=== PATIENT | female | born 1950 | race Caucasian/White ===

== ENCOUNTER 2016-09-24 04:56 | Inpatient (IN) | payer MEDICARE ==
[2016-09-24] VITALS (26 sets, daily range): BP systolic 87–121; BP diastolic 48–83
[~2016-09-24] VITALS: Ht 157.5 cm; Wt 110.0 kg
[~2016-09-24 04:56] MED LIST: (NONE)25 ML; (NONE)25 ML IM; ACETAMIN325 MG PO; ACYCLOVIR200 MG PO; ACYCLOVIR800 MG PO; ADDERALL XR10 MG PO; ADDERALL10 MG PO; ALPRAZOLAM PO; ALPRAZOLAM0.5 M2 PO; AMBIEN CR12.5 MG PO; AMBIEN10 MG OR; AMBIEN10 MG PO; AMBIEN5 MG PO; AMOX/K CLAV500 MG PO; AMOX/K CLAV875 M1 PO; AMOXICILLIN/PO500 MG PO; ASPIRIN81 MG PO; AUGMENTIN500TAB PO; B-12100 MCG IM; BACLOFEN10 MG OR; BACTRIM DS1 TAB PO; BACTROBAN2 % EX; CARAFATE PO; CEFTIN500 MG PO; CETIRIZ/PSE1 TAB PO; CETIRIZINE10 MG PO; CIPRO500 MG PO; CIPROFLOXA250 GM/5 M PO; CIPROFLOXACN500 MG PO; CLINDAMYCIN300 M1 PO; CLONIDINE0.1 MG PO; COMBIVENT IN; COMBIVENT INH; CORDARONE/200 MG/TAB PO; CYANOCOBALAM1000 MCG IJ; CYANOCOBALAM1000 MCG IM; DEPO-MEDROL40 MG/ML IJ; DESYREL50 MG/TAB PO; DIFLUCAN100 MG PO; DILAUDID8 MG OR; DIPHENHYDRAMINE25 MG PO; DITROPAN PO; DOXYCYCL HYC100 M3 PO; DOXYCYCL HYC100 MG PO; DURAGESIC100 MCG/1 TD; DURAGESIC100 MCG/H TD; DURAGESIC75 MCG/H1 TD; DURAGESIC75 MCG/HR TD; EQL IBUPROFEN200 MG PO; ESCITALOPRAM OX10 MG PO; FENTANYL25 MCG/HR TD; FENTANYL50 MCG/HR TD; FLEXERIL OR; FLEXERIL PO; FLEXERIL5 M1 PO; FLUTICASONE50 MCG; GABAPENTIN100 MG PO; HYDROXYZ HCL25 MG OR; INDOCIN50 MG/CAP PO; IPRATROPIU0.5 MG/3 M IN; LEVAQUIN500 MG/100 IV; LEVAQUIN750 MG PO; LEVOTHROID100 MCG PO; LEVOTHROID125 MCG PO; LEVOTHYROXIN100 MC1 PO; LEVOTHYROXIN100 MCG PO; LEVOTHYROXIN112 MC1 PO; LEVOTHYROXIN125 MC1 PO; LEVOTHYROXIN125 MCG PO; LEVOTHYROXIN75 MC1 PO; LEXAPRO10 MG PO; LEXAPRO20 MG OR; LEXAPRO20 MG PO; LIDODERM5 % EX; LORTAB 5/3255 MG PO; LOTRISONE EX; LUNESTA3 MG PO; LYRICA100 MG PO; LYRICA150 MG OR; LYRICA200 MG PO; LYRICA300 MG PO; Levaquin PO; MEDDOSEPAK OR; MEDDOSEPAK PO; MEROPENEM1 GM IV; METOCLOPRAM5 MG PO; MILK OF MAG30 ML/UDC PO; MORPHINE SUL30 MG OR; NEURONTIN300 MG OR; NEURONTIN400 MG PO; NEXIUM 24HR20 MG PO; OXYCODONE HCL15 MG PO; OXYCODONE15 MG PO; OXYCODONE30 MG OR; PREDNISONE20 MG PO; PREMARIN0.3 MG PO; PRILOSEC40 MG PO; PROAIR HFA IN; PROTONIX40 M2 PO; RANITIDINE150 M1 PO; ROBAXIN-750750 MG PO; ROBAXIN250 MG PO; ROBITUSSIN AC10 ML PO; ROXICODONE30 MG OR; SILVER SULFADIAZI1 % EX; STERAPRED PO; SYNTHROID100 MCG PO; SYNTHROID125 MCG OR; TIZANIDINE HCL4 M1 PO; TOPAMAX50 M1 PO; TRAMADOL HCL50 MG PO; TRAZODONE100 MG PO; TRAZODONE50 MG PO; ULTRAM50 MG OR; UNASYN 1.5 GM1.5 GM IV; VALTREX1 GM PO; VENTOLIN HFA IN; VITAMIN B-12500 MC2 IM; XANAX XR0.5 MG OR; XANAX0.5 MG PO; XANAX1 MG OR; ZITHROMAX1 GM PO; ZOLPIDEM10 MG PO; ZOLPIDEM5 M1 PO; ZPAK PO; ZYRTEC10 M3 PO
[2016-09-24 06:05] LABS: HEMATOCRIT 37.2 % (37.0-47.0); HEMOGLOBIN 11.5 g/dl (12.0-16.0); IMMATURE GRANULOCYTES 0.8 % (0.0-1.0); MEAN CELL VOLUME 81.6 fL CALC (80.0-100.0); MEAN CORPUSCULAR HGB 25.2 pG CALC (26.0-32.0); MEAN CORPUSCULAR HGB CONC 30.9 g/L CALC (32.0-36.0); NEUT# 2.49 thou/uL (2.00-7.15); RED BLOOD COUNT 4.56 mill/uL (4.20-5.60); RED CELL DISTRI WIDTH 19.2 % (11.5-15.5)
[2016-09-24 06:18] LABS: ALBUMIN 3.1 g/dL (3.2-5.0); ALKALINE PHOSPHATASE 94 u/l (38-126); ANION GAP 11 (6-22 (CALC)); BILIRUBIN, TOTAL 0.4 mg/dL (0.0-1.4); BUN 15 mg/dL (8-23); BUN/CREATININE RATIO 21 (12-20 (CALC)); CARBON DIOXIDE 31 mmol/l (22-30); CHLORIDE 101 mmol/l (95-108); CREATININE 0.7 mg/dL (0.5-1.0); GFR > 60 ML/MIN (>=60 (CALC)); GFR FOR AFR.AMER. > 60 ML/MIN (>=60 (CALC)); GLUCOSE 120 mg/dL (82-115); POTASSIUM 3.4 mmol/l (3.5-5.1); SGOT/AST 20 u/l (9-36); SGPT/ALT 31 u/l (11-66); SODIUM 139 mmol/l (137-146)
[2016-09-24 06:32] LABS: MYOGLOBIN 55 ng/mL (0 - 62)
[2016-09-24 06:49] LABS: TSH, 3RD GENERATION 0.25 uIU/mL (0.47 - 4.68)
[2016-09-24 12:05] LABS: URINE BILIRUBIN - DIPSTICK NEGATIVE (NEGATIVE); URINE BLOOD DIPSTICK NEGATIVE (NEGATIVE); URINE CLARITY CLEAR; URINE COLOR YELLOW; URINE GLUCOSE - DIPSTICK NEGATIVE (NEGATIVE); URINE KETONE NEGATIVE (NEGATIVE); URINE LEUK ESTERASE NEGATIVE (Negative); URINE NITRITE - DIPSTICK NEGATIVE (Negative); URINE PROTEIN - DIPSTICK NEGATIVE (NEG-TRACE)
[2016-09-24 17:12] LABS: HEMATOCRIT 35.1 % (37.0-47.0); HEMOGLOBIN 10.9 g/dl (12.0-16.0); IMMATURE GRANULOCYTES 1.2 % (0.0-1.0); MEAN CELL VOLUME 80.9 fL CALC (80.0-100.0); MEAN CORPUSCULAR HGB 25.1 pG CALC (26.0-32.0); MEAN CORPUSCULAR HGB CONC 31.1 g/L CALC (32.0-36.0); NEUT# 2.12 thou/uL (2.00-7.15); RED BLOOD COUNT 4.34 mill/uL (4.20-5.60); RED CELL DISTRI WIDTH 19.3 % (11.5-15.5)
[2016-09-24 17:20] LABS: ALBUMIN 2.9 g/dL (3.2-5.0); ALKALINE PHOSPHATASE 79 u/l (38-126); ANION GAP 9 (6-22 (CALC)); BILIRUBIN, TOTAL 0.4 mg/dL (0.0-1.4); BUN 12 mg/dL (8-23); BUN/CREATININE RATIO 20 (12-20 (CALC)); CALCIUM 7.9 mg/dL (8.4-10.2); CARBON DIOXIDE 31 mmol/l (22-30); CHLORIDE 107 mmol/l (95-108); CREATININE 0.6 mg/dL (0.5-1.0); GFR > 60 ML/MIN (>=60 (CALC)); GFR FOR AFR.AMER. > 60 ML/MIN (>=60 (CALC)); GLUCOSE 138 mg/dL (82-115); POTASSIUM 3.7 mmol/l (3.5-5.1); SGOT/AST 23 u/l (9-36); SGPT/ALT 27 u/l (11-66); SODIUM 143 mmol/l (137-146); TOTAL PROTEIN 5.8 g/dL (6.3-8.2)
[2016-09-25] VITALS (9 sets, daily range): BP systolic 106–125; BP diastolic 53–62
[2016-09-25 06:20] LABS: HEMATOCRIT 35.9 % (37.0-47.0); HEMOGLOBIN 10.8 g/dl (12.0-16.0); IMMATURE GRANULOCYTES 0.3 % (0.0-1.0); MEAN CELL VOLUME 83.9 fL CALC (80.0-100.0); MEAN CORPUSCULAR HGB 25.2 pG CALC (26.0-32.0); MEAN CORPUSCULAR HGB CONC 30.1 g/L CALC (32.0-36.0); NEUT# 1.58 thou/uL (2.00-7.15); RED BLOOD COUNT 4.28 mill/uL (4.20-5.60); RED CELL DISTRI WIDTH 19.4 % (11.5-15.5)
[2016-09-25 06:34] LABS: ALBUMIN 2.6 g/dL (3.2-5.0); ALKALINE PHOSPHATASE 79 u/l (38-126); ANION GAP 11 (6-22 (CALC)); BILIRUBIN, TOTAL 0.3 mg/dL (0.0-1.4); BUN 10 mg/dL (8-23); BUN/CREATININE RATIO 17 (12-20 (CALC)); CALCIUM 8.1 mg/dL (8.4-10.2); CARBON DIOXIDE 29 mmol/l (22-30); CHLORIDE 108 mmol/l (95-108); CREATININE 0.6 mg/dL (0.5-1.0); GFR > 60 ML/MIN (>=60 (CALC)); GFR FOR AFR.AMER. > 60 ML/MIN (>=60 (CALC)); GLUCOSE 89 mg/dL (82-115); POTASSIUM 4.1 mmol/l (3.5-5.1); SGOT/AST 17 u/l (9-36); SGPT/ALT 26 u/l (11-66); SODIUM 145 mmol/l (137-146); TOTAL PROTEIN 5.3 g/dL (6.3-8.2)
[2016-09-26 00:01] VITALS: BP 133/69
[2016-09-26 02:00] VITALS: BP 114/53
[2016-09-26 05:27] LABS: HEMATOCRIT 35.7 % (37.0-47.0); HEMOGLOBIN 11.1 g/dl (12.0-16.0); IMMATURE GRANULOCYTES 0.6 % (0.0-1.0); MEAN CELL VOLUME 80.4 fL CALC (80.0-100.0); MEAN CORPUSCULAR HGB CONC 31.1 g/L CALC (32.0-36.0); NEUT# 3.7 thou/uL (2.00-7.15); RED BLOOD COUNT 4.44 mill/uL (4.20-5.60); RED CELL DISTRI WIDTH 19.1 % (11.5-15.5)
[2016-09-26 05:57] LABS: ALBUMIN 3.1 g/dL (3.2-5.0); ALKALINE PHOSPHATASE 92 u/l (38-126); ANION GAP 12 (6-22 (CALC)); BILIRUBIN, TOTAL 0.3 mg/dL (0.0-1.4); BUN 9 mg/dL (8-23); BUN/CREATININE RATIO 17 (12-20 (CALC)); CALCIUM 8.5 mg/dL (8.4-10.2); CARBON DIOXIDE 26 mmol/l (22-30); CHLORIDE 110 mmol/l (95-108); CREATININE 0.6 mg/dL (0.5-1.0); GFR > 60 ML/MIN (>=60 (CALC)); GFR FOR AFR.AMER. > 60 ML/MIN (>=60 (CALC)); GLUCOSE 92 mg/dL (82-115); POTASSIUM 3.5 mmol/l (3.5-5.1); SGOT/AST 20 u/l (9-36); SGPT/ALT 30 u/l (11-66); SODIUM 145 mmol/l (137-146); TOTAL PROTEIN 5.9 g/dL (6.3-8.2)
[2016-09-26 09:29] VITALS: BP 108/68
[2016-09-26 15:25] VITALS: BP 120/57
[2016-09-26 19:00] VITALS: BP 96/62
[2016-09-26 23:26] VITALS: BP 125/72
[2016-09-27 04:45] VITALS: BP 110/68
[2016-09-27 05:12] LABS: HEMATOCRIT 32.9 % (37.0-47.0); HEMOGLOBIN 10.3 g/dl (12.0-16.0); MEAN CORPUSCULAR HGB 25.4 pG CALC (26.0-32.0); MEAN CORPUSCULAR HGB CONC 31.3 g/L CALC (32.0-36.0); NEUT# 3.62 thou/uL (2.00-7.15); RED BLOOD COUNT 4.06 mill/uL (4.20-5.60); RED CELL DISTRI WIDTH 19.2 % (11.5-15.5)
[2016-09-27 05:38] LABS: ALBUMIN 2.8 g/dL (3.2-5.0); ALKALINE PHOSPHATASE 79 u/l (38-126); ANION GAP 11 (6-22 (CALC)); BILIRUBIN, TOTAL 0.2 mg/dL (0.0-1.4); BUN 16 mg/dL (8-23); BUN/CREATININE RATIO 23 (12-20 (CALC)); CALCIUM 8.5 mg/dL (8.4-10.2); CARBON DIOXIDE 29 mmol/l (22-30); CHLORIDE 109 mmol/l (95-108); CREATININE 0.7 mg/dL (0.5-1.0); GFR > 60 ML/MIN (>=60 (CALC)); GFR FOR AFR.AMER. > 60 ML/MIN (>=60 (CALC)); GLUCOSE 77 mg/dL (82-115); SGOT/AST 27 u/l (9-36); SGPT/ALT 30 u/l (11-66); SODIUM 145 mmol/l (137-146); TOTAL PROTEIN 5.4 g/dL (6.3-8.2)
[2016-09-27 08:10] VITALS: BP 117/51
[2016-09-27 15:27] VITALS: BP 123/72
[2016-09-27 18:40] VITALS: BP 131/56
[2016-09-28 03:45] VITALS: BP 136/79
[2016-09-28 06:09] LABS: HEMATOCRIT 30.8 % (37.0-47.0); HEMOGLOBIN 9.5 g/dl (12.0-16.0); IMMATURE GRANULOCYTES 1.9 % (0.0-1.0); MEAN CELL VOLUME 81.1 fL CALC (80.0-100.0); MEAN CORPUSCULAR HGB CONC 30.8 g/L CALC (32.0-36.0); NEUT# 4.02 thou/uL (2.00-7.15); RED BLOOD COUNT 3.8 mill/uL (4.20-5.60); RED CELL DISTRI WIDTH 19.2 % (11.5-15.5)
[2016-09-28 06:21] LABS: ANION GAP 11 (6-22 (CALC)); BUN 15 mg/dL (8-23); BUN/CREATININE RATIO 23 (12-20 (CALC)); CARBON DIOXIDE 27 mmol/l (22-30); CHLORIDE 107 mmol/l (95-108); CREATININE 0.7 mg/dL (0.5-1.0); GFR > 60 ML/MIN (>=60 (CALC)); GFR FOR AFR.AMER. > 60 ML/MIN (>=60 (CALC)); GLUCOSE 119 mg/dL (82-115); POTASSIUM 3.3 mmol/l (3.5-5.1); SODIUM 142 mmol/l (137-146)
[2016-09-28 08:13] VITALS: BP 109/60
[2016-09-28 15:47] VITALS: BP 110/51
[2016-09-28 19:25] VITALS: BP 113/64
[2016-09-29 03:30] VITALS: BP 122/70
[2016-09-29 05:33] LABS: ALBUMIN 2.7 g/dL (3.2-5.0); ALKALINE PHOSPHATASE 73 u/l (38-126); ANION GAP 11 (6-22 (CALC)); BILIRUBIN, TOTAL 0.2 mg/dL (0.0-1.4); BUN 10 mg/dL (8-23); BUN/CREATININE RATIO 15 (12-20 (CALC)); CALCIUM 8.1 mg/dL (8.4-10.2); CARBON DIOXIDE 29 mmol/l (22-30); CHLORIDE 107 mmol/l (95-108); CREATININE 0.7 mg/dL (0.5-1.0); GFR > 60 ML/MIN (>=60 (CALC)); GFR FOR AFR.AMER. > 60 ML/MIN (>=60 (CALC)); GLUCOSE 83 mg/dL (82-115); POTASSIUM 4.1 mmol/l (3.5-5.1); SGOT/AST 20 u/l (9-36); SGPT/ALT 29 u/l (11-66); SODIUM 142 mmol/l (137-146); TOTAL PROTEIN 5.2 g/dL (6.3-8.2)
[2016-09-29 05:51] LABS: HEMATOCRIT 31.5 % (37.0-47.0); HEMOGLOBIN 9.7 g/dl (12.0-16.0); IMMATURE GRANULOCYTES 2.9 % (0.0-1.0); MEAN CELL VOLUME 81.6 fL CALC (80.0-100.0); MEAN CORPUSCULAR HGB 25.1 pG CALC (26.0-32.0); MEAN CORPUSCULAR HGB CONC 30.8 g/L CALC (32.0-36.0); NEUT# 4.74 thou/uL (2.00-7.15); RED BLOOD COUNT 3.86 mill/uL (4.20-5.60); RED CELL DISTRI WIDTH 19.6 % (11.5-15.5)
[2016-09-29] MEDS ORDERED: ROCEPHIN 1 GM1 GM IM (07:25)
[2016-09-29] MEDS ORDERED: ZITHROMAX1 GM IV (07:26)
[2016-09-29 07:43] VITALS: BP 121/75
[2016-09-29] MEDS ORDERED: ROCEPHIN 1 GM1 GM IV (08:25)
== END 2016-09-29 10:55 | disposition home or self-care (01) | DRG 190 ==
LOC: ENPENDDIS → ED 04:56 → ED-I 06:41 → ED 06:53 → MS2 06:54 → ICU 06:54 → MS2 09-26 09:22
PROVIDERS: Emergency Medicine; ADMIT Internal Medicine Geriatric Medicine; ATTEND Internal Medicine Geriatric Medicine
PROC: 02HV33Z Insertion of Infusion Device into Superior Vena Cava, Percutaneous Approach (ICD-10-PCS; principal; 2016-09-26)
PROC: B518ZZA Fluoroscopy of Superior Vena Cava, Guidance (ICD-10-PCS; 2016-09-26)
DX: J44.0 Chronic obstructive pulmonary disease with (acute) lower respiratory infection (principal); J18.9 Pneumonia, unspecified organism; I95.9 Hypotension, unspecified; R56.9 Unspecified convulsions; Z68.41 Body mass index [BMI] 40.0-44.9, adult; E66.01 Morbid (severe) obesity due to excess calories; K21.9 Gastro-esophageal reflux disease without esophagitis; F19.20 Other psychoactive substance dependence, uncomplicated; I10 Essential (primary) hypertension; E78.5 Hyperlipidemia, unspecified; J44.1 Chronic obstructive pulmonary disease with (acute) exacerbation; E03.9 Hypothyroidism, unspecified; M81.0 Age-related osteoporosis without current pathological fracture; G47.30 Sleep apnea, unspecified; G89.29 Other chronic pain; M54.9 Dorsalgia, unspecified; M19.90 Unspecified osteoarthritis, unspecified site; T50.7X5A Adverse effect of analeptics and opioid receptor antagonists, initial encounter; Y92.239 Unspecified place in hospital as the place of occurrence of the external cause; Z98.84 Bariatric surgery status; Z87.11 Personal history of peptic ulcer disease
CPT/HCPCS: J2060; S0164

== ENCOUNTER 2016-10-10 14:53 | Inpatient (IN) | payer MEDICARE ==
[~2016-10-10] VITALS: Ht 157.5 cm; Wt 108.0 kg
[~2016-10-10 14:53] MED LIST changes: +ROCEPHIN 1 GM1 GM IM; +ROCEPHIN 1 GM1 GM IV; +ZITHROMAX1 GM IV
--- NOTE | 2016-10-10 15:30 | NUR ---
PT.ARRIVED TO FLOOR. APPEARS STABLE AT THIS TIME
[2016-10-10 16:00] VITALS: BP 88/46
--- NOTE | 2016-10-10 16:48 | NUR ---
PT.ASSESSED. PT.AWAKES TO ANSWER QUESTIONS AND IS LOCX3 TO ANSWERS, BUT EYES IMMEDIATELY CLOSE AND SHE IS ASLEEP. I FLUSHED,WASTED 10CC AND DAMIAN BLOOD FOR LAB FROM PICC LINE AND FLUSHED AGAIN BOTH LUMEN'S AND PT.WAS AWAKE AND TALKING TO ME AND FELL ASLEEP DURING AND DIDN'T KNOW I DID IT. B/P IS 88/46, HR108, 90%02 ON 2L, 98.6T.,R22, CO2 57.8/GENIE OF RESPIRATORY NOTIFIED IS HERE AND AWARE OF V/S. IS ORDERING O2@3L HUMIDIFIED.
[2016-10-10 17:14] LABS: HEMATOCRIT 33.5 % (37.0-47.0); HEMOGLOBIN 10.3 g/dl (12.0-16.0); MEAN CELL VOLUME 82.9 fL CALC (80.0-100.0); MEAN CORPUSCULAR HGB 25.5 pG CALC (26.0-32.0); MEAN CORPUSCULAR HGB CONC 30.7 g/L CALC (32.0-36.0); RED BLOOD COUNT 4.04 mill/uL (4.20-5.60); RED CELL DISTRI WIDTH 19.5 % (11.5-15.5)
[2016-10-10 17:26] LABS: ANION GAP 10 (6-22 (CALC)); BUN 14 mg/dL (8-23); BUN/CREATININE RATIO 15 (12-20 (CALC)); CALCIUM 8.4 mg/dL (8.4-10.2); CARBON DIOXIDE 33 mmol/l (22-30); CHLORIDE 100 mmol/l (95-108); GFR 55 ML/MIN (>=60 (CALC)); GFR FOR AFR.AMER. > 60 ML/MIN (>=60 (CALC)); GLUCOSE 91 mg/dL (82-115); POTASSIUM 4.5 mmol/l (3.5-5.1); SODIUM 139 mmol/l (137-146)
[2016-10-10 19:20] VITALS: BP 107/67
--- NOTE | 2016-10-10 21:15 | NUR ---
PT. SITTING UP IN BED WITH NO DISTRESS NOTED. ASSESSMENT COMPLETED. PICC LINE TO ALFREDITO INTACT AND INFUSING ORDERED IVF WELL. SCHED MEDS GIVEN AT THIS TIME. PT'S OWN FENTANYL PATCH WAS FOUND ON LEFT BREAST AND DATED FOR 10/07/16, WILL CALL MD TO ADDRESS PATCH. UPDATED WITH POC, VERBALIZES UNDERSTANDING. PT. REFUSES SAM HOSE TO BE PLACED. INSTRUCTED PT. TO CALL FOR ANY NEEDS AND NOT TO GET OOB ALONE. BED ALARM PLACED FOR SAFETY PREC. WILL CONTINUE TO MONITOR.
--- NOTE | 2016-10-10 22:10 | NUR ---
CALLED DR. HEATON AND NOTIFIED HIM OF FENTANYL PATCH ON PT, ALSO CALLED FOR CLARIFICATION OF 2 MEDS, NEW ORDERS RECEIVED AND TO BE CARRIED OUT.
--- NOTE | 2016-10-11 | NUR ---
PT. RESTING IN BED WITH EYES CLOSED, NO DISTRESS NOTED. RESP EVEN AND UNLABORED. CALL LIGHT IS IN REACH.
--- NOTE | 2016-10-11 03:42 | NUR ---
PT. RESTING IN BED WITH EYES CLOSED, NO DISTRESS NOTED. RESP EVEN AND UNLABORED. CALL LIGHT IS IN REACH.
[2016-10-11 04:40] VITALS: BP 117/69
--- NOTE | 2016-10-11 04:54 | NUR ---
PT. C/O MICHELLE 08/07, MEDICATED WITH ORDERED PRN MOTRIN, WILL REASSESS. DENIES FURTHER NEED. CALL LIGHT IS IN REACH.
[2016-10-11 06:22] LABS: HEMATOCRIT 30.9 % (37.0-47.0); HEMOGLOBIN 9.5 g/dl (12.0-16.0); IMMATURE GRANULOCYTES 0.2 % (0.0-1.0); MEAN CELL VOLUME 83.1 fL CALC (80.0-100.0); MEAN CORPUSCULAR HGB 25.5 pG CALC (26.0-32.0); MEAN CORPUSCULAR HGB CONC 30.7 g/L CALC (32.0-36.0); NEUT# 7.12 thou/uL (2.00-7.15); RED BLOOD COUNT 3.72 mill/uL (4.20-5.60); RED CELL DISTRI WIDTH 19.3 % (11.5-15.5)
[2016-10-11 06:23] LABS: URINE BILIRUBIN - DIPSTICK NEGATIVE (NEGATIVE); URINE BLOOD DIPSTICK NEGATIVE (NEGATIVE); URINE CLARITY CLEAR; URINE COLOR YELLOW; URINE GLUCOSE - DIPSTICK NEGATIVE (NEGATIVE); URINE KETONE NEGATIVE (NEGATIVE); URINE LEUK ESTERASE NEGATIVE (Negative); URINE NITRITE - DIPSTICK NEGATIVE (Negative); URINE PH 6.5 (4.5-8.0); URINE PROTEIN - DIPSTICK NEGATIVE (NEG-TRACE); URINE SPECIFIC GRAVITY <=1.005; URINE UROBILINOGEN - DIPSTICK 0.2 E.U./dL (0.2)
[2016-10-11 06:36] LABS: ALBUMIN 2.7 g/dL (3.2-5.0); ALKALINE PHOSPHATASE 77 u/l (38-126); ANION GAP 10 (6-22 (CALC)); BILIRUBIN, TOTAL 0.5 mg/dL (0.0-1.4); BUN 16 mg/dL (8-23); BUN/CREATININE RATIO 23 (12-20 (CALC)); CALCIUM 8.3 mg/dL (8.4-10.2); CARBON DIOXIDE 30 mmol/l (22-30); CHLORIDE 102 mmol/l (95-108); CREATININE 0.7 mg/dL (0.5-1.0); GFR > 60 ML/MIN (>=60 (CALC)); GFR FOR AFR.AMER. > 60 ML/MIN (>=60 (CALC)); GLUCOSE 109 mg/dL (82-115); POTASSIUM 3.9 mmol/l (3.5-5.1); SGOT/AST 25 u/l (9-36); SGPT/ALT 26 u/l (11-66); SODIUM 138 mmol/l (137-146); TOTAL PROTEIN 5.5 g/dL (6.3-8.2)
[2016-10-11 08:50] VITALS: BP 151/83
--- NOTE | 2016-10-11 08:50 | NUR ---
PT JUST COMPLETED A SHOWER. IV SITE FLUSHABLE., NO DISTRESS NOTED. C/O LOOSE STOOLS. ASSESSMENT IS COMPLETE.
[2016-10-11 11:19] LABS: C. DIFFICILE TOXIN A&B NEGATIVE (NEGATIVE)
--- NOTE | 2016-10-11 12:05 | NUR ---
PT HAS BEEN RELAXING IN THE BED THEN WANTED IN THE CHAIR
[2016-10-11 15:33] VITALS: BP 103/71
--- NOTE | 2016-10-11 16:42 | NUR ---
PT IS SITTING UP IN T HE CHAIR. NO DISTRESS NOTED. IV SITE IS FREE FROM REDNESS OR EDEMA.
--- NOTE | 2016-10-11 18:51 | NUR ---
LEFT A MESSAGE RE: DIET ORDER WANTING REG DIET NOT SOFT.
--- NOTE | 2016-10-11 18:58 | NUR ---
RETURNED CALL AND NEW ORDERS RECIEVED
[2016-10-11 20:40] VITALS: BP 120/70
--- NOTE | 2016-10-11 20:45 | NUR ---
PT ALERT AND ORIENTED X3; SITTING ON SIDE OF BED; DRINKING COFFEE, WATCHING TV, TALKACTIVE, DENIES PAIN AT THIS TIME; NS INFUSING AT 80 ML/HR WITHOUT DIFFICULTY, NO SIGNS OF DISTRESS NOTED, SAFETY MEASURES, EXPLAINED PLAN OF CARE AND MED SCHEDULE, VOICES UNDERSTANDING ENCOURAGED TO CALL IF NEEDED. WILL CONTINUE TO MONITOR. PM ASSESSMENT COMPLETED AT THIS TIME SEE INTERVENTIONS FOR DETAILS. CALL ANDINO IS AT REACH.
--- NOTE | 2016-10-12 00:22 | NUR ---
PT C/O HEADACHE, MEDICATED WITH MOTRIN PER EMAR, WILL CONTINUE TO REASSESS, CALL ANDINO IS AT REACH, NO DISTRESS NOTED.
--- NOTE | 2016-10-12 01:57 | NUR ---
PT AWAKE STATES "I WANT SOME [place] FOR BREAKFAST."
--- NOTE | 2016-10-12 03:52 | NUR ---
PT APPEARS TO BE SLEEPING WITH EYES CLOSED; AROUSES TO MINIMUM STIMULI; RESP ARE EVEN AND UNLABORED; VOICES NO COMPLAINTS AT THIS TIME; NS INFUSING AT 80 ML/HR; DOUBLE LUMEN PICC LINE ON LUE IS FREE OF REDNESS OR EDEMA; NO DISTRESS NOTED; WILL CONTINUE TO MONITOR.
--- NOTE | 2016-10-12 05:01 | NUR ---
PROVIDED A PT WITH SOME CRACKERS AND APPLE JUICE PER REQUEST, DENIES PAIN OR DISCOMFORT AT THIS TIME; WATCHING TV, EATING AT THIS TIME, WILL CONTINUE TO MONITOR.
[2016-10-12 05:31] VITALS: BP 111/73
--- NOTE | 2016-10-12 05:55 | NUR ---
PT AWAKE, RT IN PT ROOM ADMNISTERING A BREATHING TX.
[2016-10-12 07:25] VITALS: BP 96/62
--- NOTE | 2016-10-12 07:29 | NUR ---
REPORT RECIEVED FROM GUERAD RUTLEDGE. PT SITTING UP IN BED. ASSESSMENT COMPLETED. VSS. POC DISCUSSED WITH PT. IVF INFUSING AT PRESCRIBED RATE. WILL CONTINUE TO MONITOR. CALL LIGHT IN REACH.
[2016-10-12 07:46] LABS: HEMATOCRIT 27.7 % (37.0-47.0); HEMOGLOBIN 8.3 g/dl (12.0-16.0); IMMATURE GRANULOCYTES 0.3 % (0.0-1.0); MEAN CELL VOLUME 84.2 fL CALC (80.0-100.0); MEAN CORPUSCULAR HGB 25.2 pG CALC (26.0-32.0); NEUT# 4.58 thou/uL (2.00-7.15); RED BLOOD COUNT 3.29 mill/uL (4.20-5.60); RED CELL DISTRI WIDTH 19.4 % (11.5-15.5)
[2016-10-12 07:51] LABS: ALBUMIN 2.4 g/dL (3.2-5.0); ALKALINE PHOSPHATASE 64 u/l (38-126); ANION GAP 9 (6-22 (CALC)); BILIRUBIN, TOTAL 0.2 mg/dL (0.0-1.4); BUN 13 mg/dL (8-23); BUN/CREATININE RATIO 22 (12-20 (CALC)); CALCIUM 7.9 mg/dL (8.4-10.2); CARBON DIOXIDE 26 mmol/l (22-30); CHLORIDE 109 mmol/l (95-108); CREATININE 0.6 mg/dL (0.5-1.0); GFR > 60 ML/MIN (>=60 (CALC)); GFR FOR AFR.AMER. > 60 ML/MIN (>=60 (CALC)); GLUCOSE 90 mg/dL (82-115); POTASSIUM 3.7 mmol/l (3.5-5.1); SGOT/AST 17 u/l (9-36); SGPT/ALT 26 u/l (11-66); SODIUM 141 mmol/l (137-146); TOTAL PROTEIN 4.8 g/dL (6.3-8.2)
--- NOTE | 2016-10-12 08:15 | NUR ---
PT TO RADIOLOGY VIA WC ACCOMAPNIED BY STAFF.
--- NOTE | 2016-10-12 08:30 | NUR ---
PT RETURNED FROM RADIOLOGY VIA WC. PT UP TO RECLINER CHAIR WITH MINIMAL ASSISTANCE. WILL CONTINUE TO MONITOR. CALL LIGHT IN REACH.
--- NOTE | 2016-10-12 08:45 | NUR ---
DR HEATON AT BEDSIDE. POC DISCUSSED. PT VERBALIZES UNDERSTANDING. CALL LIGHT IN REACCH.
--- NOTE | 2016-10-12 12:00 | NUR ---
PT RESTING IN BED. FAMILY AT BEDSIDE. NO C/O AT THIS TIME. CALL LIGHT IN REACH.
--- NOTE | 2016-10-12 14:15 | NUR ---
REPORT RECEIVED FROM GLORIA TAY. PT SLEEPING AT THIS TIME. CALL LIGHT WITHIN REACH.
[2016-10-12 15:52] VITALS: BP 127/81
--- NOTE | 2016-10-12 19:00 | NUR ---
RECEIVED SHIFT REPORT FROM GUERDA ZALDIVAR. PATIENT LAYING IN BED QUIETLY AND APPEARS NOT TO BE IN ANY APPARENT ACUTE DISTRESS. NO VOICED COMPLAINTS AT THIS TIME.
[2016-10-12 19:30] VITALS: BP 149/70
--- NOTE | 2016-10-13 | NUR ---
NO APPARENT ACUTE CHANGES NOTED IN PATIENT'S CONDITION.
--- NOTE | 2016-10-13 04:00 | NUR ---
PATIENT LAYING IN BED WITH EYES CLOSED AND APPEARS TO BE ASLEEP. RESPIRATION EVEN AND UNLABORED. NO APPARENT ACUTE DISTRESS NOTED.
[2016-10-13 04:14] VITALS: BP 107/71
--- NOTE | 2016-10-13 07:00 | NUR ---
REPORT RECEIVED FROM GUERDA CORDERO. PT SLEEPING AT THIS TIME. CALL LIGHT WITHIN REACH.
[2016-10-13 07:45] VITALS: BP 120/76
[2016-10-13 09:28] LABS: HEMATOCRIT 31.1 % (37.0-47.0); HEMOGLOBIN 9.4 g/dl (12.0-16.0); IMMATURE GRANULOCYTES 0.9 % (0.0-1.0); MEAN CELL VOLUME 83.4 fL CALC (80.0-100.0); MEAN CORPUSCULAR HGB 25.2 pG CALC (26.0-32.0); MEAN CORPUSCULAR HGB CONC 30.2 g/L CALC (32.0-36.0); NEUT# 3.82 thou/uL (2.00-7.15); RED BLOOD COUNT 3.73 mill/uL (4.20-5.60)
[2016-10-13 09:44] LABS: ANION GAP 9 (6-22 (CALC)); BUN 13 mg/dL (8-23); BUN/CREATININE RATIO 18 (12-20 (CALC)); CALCIUM 8.8 mg/dL (8.4-10.2); CARBON DIOXIDE 29 mmol/l (22-30); CHLORIDE 107 mmol/l (95-108); CREATININE 0.7 mg/dL (0.5-1.0); GFR > 60 ML/MIN (>=60 (CALC)); GFR FOR AFR.AMER. > 60 ML/MIN (>=60 (CALC)); GLUCOSE 83 mg/dL (82-115); POTASSIUM 4.1 mmol/l (3.5-5.1); SODIUM 141 mmol/l (137-146)
--- NOTE | 2016-10-13 10:02 | NUR ---
DR. HEATON IN TO SEE PT AT THIS TIME. PLAN OF CARE UPDATED. PT INSTRUCTED ON CPT, AMBULATING IN HALLWAYS AND REPEAT LABS. PT STATES UNDERSTANDING.
--- NOTE | 2016-10-13 10:21 | NUR ---
PT DECLINED CPT WELL NEB TX.
--- NOTE | 2016-10-13 12:17 | NUR ---
PT SITTING IN CHAIR AT BEDSIDE. PT STATES SHE WILL AMBULATE IN HALLS WHEN ARRIVES.
[2016-10-13 15:41] VITALS: BP 107/63
--- NOTE | 2016-10-13 16:08 | NUR ---
PT AMBULATED IN HALLWAYS WITH WALKER AND SQUAD BOSS PRESENT. PT TOLERATED ACTIVITY WELL.
--- NOTE | 2016-10-13 19:00 | NUR ---
RECEIVED SHIFT REPORT FROM GUERDA ZALDIVAR. PATIENT LAYING IN BED AND APPEARS NOT TO BE IN ANY APPARENT ACUTE DISTRESS OR DISCOMFORT. NO VOICED COMPLAINTS.
[2016-10-13 20:00] VITALS: BP 125/79
[2016-10-14] VITALS (12 sets, daily range): BP systolic 101–141; BP diastolic 58–75
--- NOTE | 2016-10-14 | NUR ---
NO APPARENT ACUTE CHANGES NOT IN PATIENT'S CONDITION.
--- NOTE | 2016-10-14 04:00 | NUR ---
PATIENT RESTING QUIETLY WITH EYES CLOSED. RESPIRATION EVEN AND UNLABORED. NO ACUTE DISTRESS NOTED.
[2016-10-14 05:31] LABS: HEMATOCRIT 28.8 % (37.0-47.0); HEMOGLOBIN 8.8 g/dl (12.0-16.0); IMMATURE GRANULOCYTES 0.9 % (0.0-1.0); MEAN CELL VOLUME 83.7 fL CALC (80.0-100.0); MEAN CORPUSCULAR HGB 25.6 pG CALC (26.0-32.0); MEAN CORPUSCULAR HGB CONC 30.6 g/L CALC (32.0-36.0); NEUT# 3.21 thou/uL (2.00-7.15); RED BLOOD COUNT 3.44 mill/uL (4.20-5.60); RED CELL DISTRI WIDTH 18.7 % (11.5-15.5)
[2016-10-14 05:42] LABS: ALBUMIN 2.5 g/dL (3.2-5.0); ALKALINE PHOSPHATASE 68 u/l (38-126); ANION GAP 9 (6-22 (CALC)); BILIRUBIN, TOTAL 0.2 mg/dL (0.0-1.4); BUN 11 mg/dL (8-23); BUN/CREATININE RATIO 15 (12-20 (CALC)); CALCIUM 8.6 mg/dL (8.4-10.2); CARBON DIOXIDE 32 mmol/l (22-30); CHLORIDE 105 mmol/l (95-108); CREATININE 0.7 mg/dL (0.5-1.0); GFR > 60 ML/MIN (>=60 (CALC)); GFR FOR AFR.AMER. > 60 ML/MIN (>=60 (CALC)); GLUCOSE 82 mg/dL (82-115); SGOT/AST 18 u/l (9-36); SGPT/ALT 25 u/l (11-66); SODIUM 142 mmol/l (137-146); TOTAL PROTEIN 5.2 g/dL (6.3-8.2)
--- NOTE | 2016-10-14 07:20 | NUR ---
ASSESSMENT IS COMPLETED: IV SITE IS FREE FROM REDNESS OR EDEMA. NEEDING HEPARIN TO KEEP LINE CLEAR. NO DISTRESS NOTED. CONTINUE TO OBSERVE AND MONTOR.
--- NOTE | 2016-10-14 10:26 | NUR ---
1ST UNIT OF BLOOD TRANSFUSING SIGNED CONSENT .
--- NOTE | 2016-10-14 12:00 | NUR ---
PT RYAN TO SIT UP IN THE CHAIR NO DISTRESS NOTED. IV SITE IS FREE FROM REDNESS OR EDEMA. CONTINUE TO OSBERVE AND MONITOR.
--- NOTE | 2016-10-14 13:30 | NUR ---
2ND UNIT OF BLOOD IS TRANSFUSING PT TOLERATING WELL. IV SITE IS FREE FROM REDNESS OR EDEMA.
--- NOTE | 2016-10-14 16:30 | NUR ---
2ND UNIT COMPLETED: IV SITE IS FREE FROM REDNESS OR EDEMA. FAMILY HAS BEEN IN TO VISIT WITH PT. NO DISTRESS NOTED. CONTINUE TO OSBERVE AND MONITOR.
--- NOTE | 2016-10-14 17:05 | NUR ---
PT NOT REMEMBERING THE NAME OF HER PAIN MANAGEMENT DOESN'T WANT TO SIGN THE RELEASE AT THIS TIME.,
--- NOTE | 2016-10-14 19:30 | NUR ---
PATIENT SITTING UP IN THE RECLINER WITH VISITORS AT BESIDE. PATIENT ALERT AND ORIENTEDX3. PATIENT WITH DOUBLE LUMEN PICC TO LEFT ARM WITH NS AT KVO RATE. SITE APPEARS HEALTHY AT THIS TIME. PATIENT WITH NO O2 AT THIS TIME. SAFETY PRECAUTIONS REVIEWED WITH PATIENT. CALL LIGHT IN REACH. WILL CONT TO MONITOR.
--- NOTE | 2016-10-14 22:01 | NUR ---
PATIENT RESTING IN BED AT THIS TIME. C/O GENERALIZED ITCHING AND WAS MEDICATED WITH BENEDRYL 25MG PO. PATIENT C/O LEFT KNEE PAIN-01/07 AND WAS MEDICATED WITH MOTRIN 800MG PO FOR PAIN. PATIENT MEDICATED FOR ANXIETY AND SLEEP WITH XANAX 1MG PO ORDERED. SAFETY PRECAUTIONS REINFORCED. CALL LIGHT IN REACH. WILL CONT TO MONITOR.
--- NOTE | 2016-10-15 04:00 | NUR ---
PATIENT APPEARS SLEEPING AT THIS TIME WITH EYES CLOSED. IVF PATENT AND INFUSING AT 20CC/HR. CALL LIGHT IN REACH. WILL CONT TO MONITOR.
[2016-10-15 05:31] VITALS: BP 133/92
[2016-10-15 06:16] LABS: HEMATOCRIT 42.6 % (37.0-47.0); HEMOGLOBIN 13.2 g/dl (12.0-16.0); IMMATURE GRANULOCYTES 3.3 % (0.0-1.0); MEAN CELL VOLUME 82.4 fL CALC (80.0-100.0); MEAN CORPUSCULAR HGB 25.5 pG CALC (26.0-32.0); NEUT# 4.25 thou/uL (2.00-7.15); RED BLOOD COUNT 5.17 mill/uL (4.20-5.60); RED CELL DISTRI WIDTH 17.9 % (11.5-15.5)
[2016-10-15 06:39] LABS: ANION GAP 15 (6-22 (CALC)); BUN 12 mg/dL (8-23); BUN/CREATININE RATIO 15 (12-20 (CALC)); CALCIUM 9.3 mg/dL (8.4-10.2); CARBON DIOXIDE 32 mmol/l (22-30); CHLORIDE 99 mmol/l (95-108); CREATININE 0.8 mg/dL (0.5-1.0); GFR > 60 ML/MIN (>=60 (CALC)); GFR FOR AFR.AMER. > 60 ML/MIN (>=60 (CALC)); GLUCOSE 64 mg/dL (82-115); POTASSIUM 4.3 mmol/l (3.5-5.1); SODIUM 141 mmol/l (137-146)
[2016-10-15 07:44] VITALS: BP 115/67
--- NOTE | 2016-10-15 07:44 | NUR ---
ASSESSMENT IS COMPLETED : IV SITE IS FREE FROM REDNESS OR EDEMA. ACCU CHECK PER LAB WAS 64 AND THEN RECHECKED IT WAS 93. CONTINUE TO OSBERVE AND MONITOR.
[2016-10-15] MEDS ORDERED: LEVAQUIN750 MG PO (08:48)
--- NOTE | 2016-10-15 11:04 | NUR ---
DISCHARGE INSTRUCTIONS GIVEN AND PT VERBALIZED UNDERSTANDING. IV SITE FLUSHED WITH NS AND HEPARIN. CONTINUE TO OSBERVE AND MONITOR.
--- NOTE | 2016-10-15 11:10 | NUR ---
ACCU CHECK WAS CHECKED 95 PT IS AWARE AND VERY RELEIVED "NOT WANTING TO BE DIABETIC".
== END 2016-10-15 11:03 | DRG 190 ==
LOC: ENPENDDIS → MS2 14:53
PROVIDERS: ADMIT Internal Medicine Geriatric Medicine; ATTEND Internal Medicine Geriatric Medicine
PROC: 30233N1 Transfusion of Nonautologous Red Blood Cells into Peripheral Vein, Percutaneous Approach (ICD-10-PCS; principal; 2016-10-14)
PROC: 30233N1 Transfusion of Nonautologous Red Blood Cells into Peripheral Vein, Percutaneous Approach (ICD-10-PCS; 2016-10-14)
DX: J44.0 Chronic obstructive pulmonary disease with (acute) lower respiratory infection (principal); J18.9 Pneumonia, unspecified organism; I48.91 Unspecified atrial fibrillation; Z68.41 Body mass index [BMI] 40.0-44.9, adult; D50.9 Iron deficiency anemia, unspecified; E03.9 Hypothyroidism, unspecified; I10 Essential (primary) hypertension; F19.20 Other psychoactive substance dependence, uncomplicated; J44.1 Chronic obstructive pulmonary disease with (acute) exacerbation; E66.01 Morbid (severe) obesity due to excess calories; E78.5 Hyperlipidemia, unspecified; K21.9 Gastro-esophageal reflux disease without esophagitis; M19.90 Unspecified osteoarthritis, unspecified site; M81.0 Age-related osteoporosis without current pathological fracture; G47.30 Sleep apnea, unspecified; G89.29 Other chronic pain; Z98.84 Bariatric surgery status
CPT/HCPCS: P9016

== ENCOUNTER 2016-10-31 12:17 | Inpatient (IN) | payer MEDICARE ==
[~2016-10-31] VITALS: Ht 157.5 cm; Wt 112.6 kg
[2016-10-31] MEDS ORDERED: DURAGESIC100 MCG/HR TD (12:22)
[2016-10-31] MEDS ORDERED: ALPRAZOLAM0.5 M2 PO (12:23)
[2016-11-15] VITALS (8 sets, daily range): BP systolic 94–120; BP diastolic 35–64
[2016-11-15 08:29] LABS: PROTHROMBIN TIME 10.7 SECONDS (9.0-12.5)
--- NOTE | 2016-11-15 15:00 | NUR ---
BED SIDE REPORT GIVEN BY ALEJANDRO FROM PACU. PT ARRIVED ON UNIT IN BED, ALERT AND ORIENTED X 3, C/O PAIN TO L. KNEE @ 12/10, O2 SATS IN LOW 80'S. O2 @ 2L VIA NC PLACED, SETTLED IN ROOM, SURGICAL DRESSING TO L. KNEE CDI. CALL ANDINO IN REACH.
--- NOTE | 2016-11-15 20:30 | NUR ---
OOB TO BSC VOIDING CLEAR YELLOW URINE, THEN BACK TO BED. ICE PACK APPLIED TO LEFT KNEE. CALL LIGHT IN REACH.
--- NOTE | 2016-11-15 20:39 | NUR ---
P/O LEFT KNEE ARTHROPLASTY, OOB TO BSC WITH MINIMAL ASSISTANE VOIDING CLEAR YELLOW URINE, THEN BACK TO BED. SCD APPLIED TO RIGHT LEG. C/O PAIN 10/10, MEDICATED WITH PERCOCET 2TAB AT THIS TIME. LR INFUSING TO LFA AT 100CC/HR. ICE PACK TO LEFT KNEE. ENCOURAGED TO USE CALL LIGHT FOR ASSISTNACE, WILL CONTINUE TO MONITOR.
--- NOTE | 2016-11-16 00:20 | NUR ---
OOB TO BSC WITH MINIMAL ASSISTANCE, VOIDING CLEAR YELLOW URINE. BACK TO BED. QUARTER SIZE BLOOD COMMING THROUGH DRESSING. ICE PACK APPLIED. WILL CONTINUE TO MONITOR.
--- NOTE | 2016-11-16 04:35 | NUR ---
RESTING IN BED WITH EYES CLOSED, RESPIRATIONS EVEN AND UNLABORED.
[2016-11-16 04:40] VITALS: BP 132/70
[2016-11-16 06:41] LABS: HEMOGLOBIN 11.3 g/dl (12.0-16.0)
[2016-11-16 07:51] VITALS: BP 95/54
--- NOTE | 2016-11-16 08:06 | NUR ---
PT SITTING UP IN BED. REPORT RECIEVED FROM SANIA HAIR LPN. ASSESSMENT COMPLETED. VSS. PT C/O LEFT KNEE PAIN. MEDICATED AT THIS TIME. I.S. AT BEDSIDE AND PT ABLE TO DEMONSTRATE TO LOSS PREVENTION SUPERVISOR. POC DISCUSSED. ICE PACK TO LEFT KNEE. WILL CONTINUE TO MONITOR. CALL LIGHT IN REACH.
--- NOTE | 2016-11-16 10:00 | NUR ---
DR OLGUIN AT BEDSIDE. POC DISCUSSED. PT VERBALIZES UNDERSTANDING. CALL LIGHT IN REACH.
--- NOTE | 2016-11-16 11:00 | NUR ---
Patient was seen and treated today. Patient expressed that the left knee knee is sore and painful 11/07. Patient also feels sleepy prior to start of physical therapy session. Physical Therapy Management: 1. Ankle pumps x 15 repetitions 2. Passive stretching of the left knee into full extension x 5 minutes 3. Bilateral quad-setting x 5 seconds hold x 10 repetitions 4. Bilateral hamstring-setting x 5 seconds hold x 10 repetitions 5. Active range of motion of the right knee 5.1 Right hip and knee flexion x 15 repetitions 6. Active-assistive range of motion of the left knee 6.1 Left hip and knee flexion x 15 repetitions Patient education on fall precautions discussed. Patient verbalized understanding. Patient was able to perform all exercises but was sore throughout physical therapy session. Patient remained sleepy throughout physical therapy.
--- NOTE | 2016-11-16 11:23 | NUR ---
PT MEDICATED FOR PAIN AT THIS TIME. FAMILY AT BEDSIDE. PT DENIES ANY NEEDS AT THIS TIME. WILL CONTINUE TO MONITOR. CALL LIGHT IN REACH.
--- NOTE | 2016-11-16 14:20 | NUR ---
RADIOLOGY AT BEDSIDE FOR CXR TO CONFIRM PICC LINE PLACEMENT. WILL AWAIT FOR RESULTS. #20 LFA AT THIS TIME REMAINS IN PLACE. CALL LIGHT IN REACH.
--- NOTE | 2016-11-16 14:42 | NUR ---
Patient was seen and treated today. Pateint left knee feels sore prior to start of physical therapy session. 1. Ankle pumps x 15 repetitions 2. Bilateral quad setting x 5 seconds hold x 10 repetitions 3. Bilateral hamstring setting x 5 seconds x 10 repetitions 4. Active-assistve range of motion of the left lower extremity 4.1 Hip and knee flexion x 15 repetitions 4.2 Hip abduction x 15 repetitions 5. Active range of motion of the right lower extrmity 5.1 Hip and knee flexion x 15 repetitions 5.2 Hip abduction x 15 repetitions 6. Supine to sit and sit to supine with minimal assist and verbal cues for safety. 7. Sitting balance at the edge of the bed x 3-5 minutes 8. Sit to stand and stand to sit x 3-5 minutes 9. Bed to chair and chair bed transfer 2 repetitions 10. Gait training with rolling walker with minimal assist and with verbal cues for safety x 3-5 feet. Judy was able to perform all therapeutic exercises but felt very tired after physical therapy session. Fall precautions reviewed. Patient verbalized understanding.
[2016-11-16 16:18] VITALS: BP 98/59
--- NOTE | 2016-11-16 16:41 | NUR ---
PT.ASSISTED TO BSC,AMBULATED WELL USING WALKER AND PIVOT METHOD; PT.ASSISTED BACK TO BED AND REPOSITIONED W/ICE PACKS IN PLACE; PROVIDED ZACKARY-RYAN REQUESTED OVE ICE
--- NOTE | 2016-11-16 17:40 | NUR ---
PT.MEDICATED FOR PAIN REPORTED 01/07, PT.IS UPRIGHT IN BED STARTING TO EAT SUPPER TRAY AT THIS TIME; CALL LIGHT W/IN REACH
[2016-11-16 19:22] VITALS: BP 102/66
--- NOTE | 2016-11-16 20:00 | NUR ---
PATIENT RESTING IN BED AT THIS TIME. PATIENT C/O SEVERE POST-OP PAIN-01/07. PATIENT MEDICATED WITH DILAUDID 1MG IVP ORDERED FOR SEVERE PAIN. PATIENT IS ALERT AND ORIENTEDX3. PATIENT UP TO THE BSC VOIDING IN SMALL AMTS. PATIENT WITH DOUBLE LUMEN PICC TO LEFT UPPER ARM. SITE APPEARS HEALTHY AT THIS TIME. GOOD BLOOD RETURN FROM BOTH PORTS. IVF TO LEFT WRIST AREA AT 100CC/HR. SITE APPEARS HEALTHY AT THIS TIME. DRESSING TO LEFT KNEE INTACT WITH JU WRAP. ICE PACK FOR COMFORT. SAFETY PRECAUTIONS REINFORCED. CALL LIGHT IN REACH. WILL CONT TO MONITOR.
--- NOTE | 2016-11-16 21:45 | NUR ---
PATIENT WITH HS MEDS INCLUDING PERCOCET 10/325MG TABS 2 AND XANAX 1MG PO FOR SLEEP. RECIEVED VERBAL COMFIRMATION THAT PICC IS IN THE SVC-IVF HOOKED UP TO THE PICC LINE AT 100CC/HR ORDERED. IV SITE TO LEFT WRIST D/ERICKA. O2 VIA NASAL CANNULA IN PLACE AT 2LPM. CALL LIGHT IN REACH. WILL CONT TO MONITOR.
[2016-11-17 00:15] VITALS: BP 92/62
--- NOTE | 2016-11-17 01:00 | NUR ---
PATIENT ASSISTED TO THE BSC TO VOID AND BACK TO BED. PATIENT C/O POST-OP AND BACK PAIN-01/07. MEDICATED WITH DILAUDID 1MG ORDERED. O2 VIA NASAL CANNULA IN PLACE. CALL LIGHT IN REACH. WILL CONT TO MONITOR.
[2016-11-17 03:55] VITALS: BP 130/80
--- NOTE | 2016-11-17 04:10 | NUR ---
PATIENT RESTING IN BED AT THIS TIME-C/O SEVERE POST-OP AND BACK PAIN-MEDICATED WITH DILAUDID 1MG IVP. PATIENT IS ASKING FOR PERCOCET WELL-EXPLAINED TO THE PATIENT TO SEE IF THE DILAUDID WORKS FIRST-EDUCATED ON THE POSSIBLE SIDE EFFECTS OF NARCOTICS. SAFETY PRECAUTIONS REINFORCED. CALL LIGHT IN REACH. WILL CONT TO MONITOR,
--- NOTE | 2016-11-17 05:00 | NUR ---
PATIENT STATES NO RELIEF FROM DILAUDID-STILLL WITH PAIN 10/10 ON PAIN SCALE. PATIENT MEDICATED WITH PERCOCET 2TABS ORDERED. PATIENT SEEMS TO BE DOZING OFF INTERMOITANTLY BUT STILL C/O SEVERE PAIN. PATIENT WITH TREMORS OF HANDS WHEN HANDED HER WATER TO TAKE HER PILLS. PATIENT WITH O2 VIA NASAL CANNULA IN PLACE. SCD'S IN PLACE. ICE PACK TO LEFT KNEE. DRESSING REMAINS CLEAN DRY AND INTACT WITH JU WRAP TO SECURE. SAFETY PRECAUTIONS REINFORCED. CALL LIGHT IN REACH. WILL CONT TO MONITOR.
[2016-11-17 05:45] LABS: ANION GAP 11 (6-22 (CALC)); BUN 7 mg/dL (8-23); BUN/CREATININE RATIO 12 (12-20 (CALC)); CALCIUM 8.5 mg/dL (8.4-10.2); CARBON DIOXIDE 33 mmol/l (22-30); CHLORIDE 102 mmol/l (95-108); CREATININE 0.5 mg/dL (0.5-1.0); GFR > 60 ML/MIN (>=60 (CALC)); GFR FOR AFR.AMER. > 60 ML/MIN (>=60 (CALC)); GLUCOSE 103 mg/dL (82-115); HEMATOCRIT 35.1 % (37.0-47.0); HEMOGLOBIN 10.8 g/dl (12.0-16.0); IMMATURE GRANULOCYTES 0.5 % (0.0-1.0); MEAN CORPUSCULAR HGB 27.1 pG CALC (26.0-32.0); MEAN CORPUSCULAR HGB CONC 30.8 g/L CALC (32.0-36.0); NEUT# 9.01 thou/uL (2.00-7.15); POTASSIUM 3.8 mmol/l (3.5-5.1); RED BLOOD COUNT 3.99 mill/uL (4.20-5.60); RED CELL DISTRI WIDTH 18.9 % (11.5-15.5); SODIUM 141 mmol/l (137-146)
--- NOTE | 2016-11-17 06:00 | NUR ---
APPEARS SLEEPING AT THIS TIME-CALL LIGHT IN REACH. WILL CONT TO MONITOR.
[2016-11-17 08:50] VITALS: BP 143/87
--- NOTE | 2016-11-17 09:02 | NUR ---
PT.UP TO BSC, HR ELEVATED AND O2 SATS DROPPED TO 84%, PT.REPLACED ON O2, UP TO PT.PROVIDED KRISTINA CARE AND REPOSITIONED IN RECLINER FOR BREAKFAST.HR BACK DOWN AND O2 SATS AT 91%
--- NOTE | 2016-11-17 09:21 | NUR ---
REASSESSED O2 LEVELS @90% ON 02@2L, PT.IS UPRIGHT IN RECLINER W/ICE PACK IN PLACE POPLATEAL OF KNEE, PT.SLEEPING THROUGH SAT CHECK, BREAKFAST IS IN FRONT OF HER AND I ALREADY AWOKE HER AND REMINDED HER OF HER BREAKFAST, SHE FELL BACK TO SLEEP
--- NOTE | 2016-11-17 10:24 | NUR ---
PATIENT UP IN CHAIR WITH MAX A OF 2 PER NSG. HER BREAKFAST IS STILL IN FRONT OF HER, WHILE SHE SLEEPS IN THE CHAIR. WAITED 25 MIN FOR HER TO EAT AND UPON RETURN SHE HAD NOT MOVED AND WAS STILL SLEEPING. INCREASED VERBAL STIM TO MAINTAIN EYES OPEN. REC'D FUNCTIONAL ACTIVITY/GAIT TRAINING FOR SIT TO STAND AND AMB WITH RW. MOD A OF 2 SIT TO STAND. PATIENT UNABLE TO STAND ERECT. HAD [employer]PER[employer] CREW MEMBER FOLLOW WITH RECLINER DUE TO POOR SAFETY AWARENESS AND ALERTNESS. INSTRUCTED TO MAINTAIN FOOT BETWEEN HANDS INSIDE OF WALKER. PATIENT DOES NOT MOVE RIGHT LE NOT TO WB ON LEFT. SHE FELT CHAIR BEHIND HER AND SAT WITH ASSISTANCE, ABRUPTLY. PATIENT WAS NOT ABLE TO FOLLOW DIRECTIONS FOR ADVANCING R LE, USING UE WB'G, OR EVEN TO SLIDE R FOOT FORWARD. THE PROPER SEQUENCE AND TECHNIQUE WAS DEMONSTRATED FOR PATIENT TO PROVIDE LESS PRESSURE ON L LE AND MAINTAIN GOOD BASE OF SUPPORT IN WALKER. SHE VERBALIZES GOOD UNDERSTANDING OF SAME. SHE REQUESTS HER OATMEAL BE HEATED AND IS ALERT ENOUGH NOW TO EAT. WILL AMB MORE AT P.M. TX LATER TODAY. AAROM IN SITTING AND PATIENT NOT RECLINED IN ORDER TO STAY AWAKE AND EAT.
--- NOTE | 2016-11-17 15:59 | NUR ---
PATIENT PERFORMED SIT TO STAND TRANSFER AT BEDSIDE X 4 WITH MAX ASSIST FROM THERAPIST. SHE WAS ABLE TO STAND PIVOT TO BEDSIDE COMMODE POSITIONED PERPENDICULAR TO THE FOOT OF THE BED WITH MAX ASSIST AND MAX VERBAL CUES. SHE WAS HAVING DIFFICULTY MOVING HER FEET TO COMPLETE THE STAND PIVOT MANEUVER. PATIENT SAFELY SAT ON THE COMMODE AND TRANSFERRED BACK TO BED IN SHORT SITTING POSITION. FINALLY, SHE WALKED SIDEWAYS TOWARDS THE HEAD OF BED IN TINY LITTLE STEPS WITH MAX ASSIST FROM THERAPIST. SHE HAS GREAT DIFFICULTY STANDING USING THE ROLLING WALKER TODAY. HER PAIN LEVEL WAS STATED 40/1O. SHE WAS UNABLE TO TRANSFER AND WALK TO THE RECLINER. THERAPIST GAVE MAX ASSIST FOR SIT TO SUPINE TRANSFER AND PATIENT SAFELY GOT INTO SUPINE POSITION.
[2016-11-17 16:45] VITALS: BP 139/84
[2016-11-17 19:00] VITALS: BP 99/59
--- NOTE | 2016-11-17 19:30 | NUR ---
PATIENT RESTING IN BED AT THIS TIME. AWAKE ALERT AND ORIENTEDX3. PATIENT WITH DRESSING TO LEFT KNEE INTACT WITH JU WRAP. SOME BRUISING NOTEDED BELOW THE KNEE AND SEVERAL SMALL FLUID FILLED BLISTERS NOTED TO THE LEFT HIP/THIGH AREA-LEFT MANAN. PATIENT WITH DOUBLE LUMEN PICC TO LEFT UPPER ARM-SITE APPEARS HEALTHY AT THIS TIME. SCD IN USE TO RIGHT LE. USING ICE TO SURGICAL SITE ORDERED FOR COMFORT AND SWELLING. ENCOURAGED CDB EXERCISE AND USE OF IS Q1H WHILE AWAKE X10 REPS-DEMONSTRATES ABILITY TO PREFORM. SAFETY PRECAUTIONS REINFORCED. CALL LIGHT IN REACH. WILL CONT TO MONITOR.
--- NOTE | 2016-11-17 20:45 | NUR ---
PATIENT ASSISTED TO BSC TO VOID. ASSISTED BACK TO BED. PATIENT MEDICATED FOR POST-OP AND BACK PAIN 10/10 ON PAIN SCALE WITH PERCOCET TABS 2. SAFETY PRECAUTIONS REINFORCED. CALL LIGHT IN REACH. WILL CONT TO MONITOR.
--- NOTE | 2016-11-17 22:39 | NUR ---
PATIENT APPEARS SLEEPING AT THIS TIME IN NO ACUTE DISTRESS WITH O2 VIA NASAL CANNULA IN PLACE. CALL LIGHT IN REACH. WILL CONT TO MONITOR.
[2016-11-17 23:42] VITALS: BP 95/63
--- NOTE | 2016-11-18 | NUR ---
PATIENT RESTING IN BED AT THIS TIME APPEARS SLEEPING WITH O2 VIA NASAL CANNULA IN PLACE. CALL LIGHT IN REACH. WILL CONT TO MONITOR.
[2016-11-18 05:00] VITALS: BP 99/59
--- NOTE | 2016-11-18 05:20 | NUR ---
PATIENT ASSISTED TO BSC TO VOID CLEAR YELLOW URINE. ASSISTED BACK TO BED. PATIENT C/O SEVERE POST-OP AND BACK PAIN-10/10 ON PAIN SCALE. PATIENT MEDICATED WITH DILAUDID 1MG IVP. MORNING LABS DRAWN FROM LEFT UPPER ARM PICC. SAFETY PRECAUTIONS REINFORCED. CALL LIGHT IN REACH. WILL CONT TO MONITOR.
[2016-11-18 05:35] LABS: HEMATOCRIT 30.1 % (37.0-47.0); HEMOGLOBIN 9.2 g/dl (12.0-16.0)
--- NOTE | 2016-11-18 07:00 | NUR ---
SHIFT CHANGE REPORT FROM GAIL SUN SLEEPING AT THIS TIME, BREATHING EVEN AND NON-LABORED, NO SIGN DISCOMFORT AT THIS TIME, CALL ANDINO IN REACH.
--- NOTE | 2016-11-18 07:56 | NUR ---
PT AWAKE ALERT AND ORIENTED AT THIS TIME, SET UP FOR MEAL, ALL NEEDS ADDRESSED, CALL ANDINO IN REACH.
--- NOTE | 2016-11-18 08:52 | NUR ---
PATIENT TRANSFERRED TO THE BEDSIDE COMMODE TODAY WITH JUST CGA FROM THERAPIST. SHE WAS ABLE TO PERFORM SIT TO STAND FROM THE COMMODE AND WALKED WITH THE ROLLING WALKER FROM THE BED TO THE DOOR AND BACK TO THE RECLINER. PATIENT HAS 10/10 REPORTED PAIN BUT WAS ABLE TO PERFORM SLOW WALKING IN THE ROOM WITH JUST CGA. PATIENT WAS LEFT SITTING IN THE RECLINER WITH HER BREAKFAST TRAY. NO UNTOWARD INCIDENT HAPPENED.
[2016-11-18 09:13] LABS: HEMATOCRIT 30.3 % (37.0-47.0); HEMOGLOBIN 9.2 g/dl (12.0-16.0); IMMATURE GRANULOCYTES 0.7 % (0.0-1.0); MEAN CELL VOLUME 89.4 fL CALC (80.0-100.0); MEAN CORPUSCULAR HGB 27.1 pG CALC (26.0-32.0); MEAN CORPUSCULAR HGB CONC 30.4 g/L CALC (32.0-36.0); NEUT# 5.94 thou/uL (2.00-7.15); RED BLOOD COUNT 3.39 mill/uL (4.20-5.60); RED CELL DISTRI WIDTH 18.9 % (11.5-15.5)
[2016-11-18 09:19] LABS: ANION GAP 7 (6-22 (CALC)); BUN 7 mg/dL (8-23); BUN/CREATININE RATIO 14 (12-20 (CALC)); CALCIUM 7.9 mg/dL (8.4-10.2); CARBON DIOXIDE 35 mmol/l (22-30); CHLORIDE 102 mmol/l (95-108); CREATININE 0.5 mg/dL (0.5-1.0); GFR > 60 ML/MIN (>=60 (CALC)); GFR FOR AFR.AMER. > 60 ML/MIN (>=60 (CALC)); GLUCOSE 105 mg/dL (82-115); POTASSIUM 3.6 mmol/l (3.5-5.1); SODIUM 140 mmol/l (137-146)
[2016-11-18 09:37] VITALS: BP 100/49
[2016-11-18 15:40] VITALS: BP 112/73
--- NOTE | 2016-11-18 16:12 | NUR ---
SITTING UP IN RECLINER AT THIS TIME CONVERSING VIA PHONE, UNHAPPY SHE IS NO LONGER HAVING DILAUDID FOR PAIN AND STATES HER PAIN STAYS AT 10/10 OR SLIGHTLY IMPROVED BY 1 POINT, NEEDS ADDRESSED, CALL ANDINO IN REACH.
--- NOTE | 2016-11-18 16:24 | NUR ---
Pt seen this pm for gait. She moved supine to and from sit with SBA. Gait with RW 2 x15' with CGA, gait belt and non skid socks in place. Pt returned to bed with call ortega and phone in reach. Pt required cueing for safety skills.
--- NOTE | 2016-11-18 19:30 | NUR ---
PATIENT RESTING IN BED-ASSISTED TO BSC TO VOID. PATIENT IS MOVING BETTER WITH HER WALKER. ASSISTED BACK TO BED. PATIENT WITH PICC TO LEFT UPPER ARM-SITE APPEARS HEALTHY AT THIS TIME. DRESSING TO LEFT KNEE INTACT WITH JU WRAP-SOME SWELLING NOTED TO LLE. SAFETY PRECAUTIONS REINFORCED. CALL LIGHT IN REACH. WILL CONT TO MONITOR.
[2016-11-18 20:33] VITALS: BP 109/64
--- NOTE | 2016-11-18 21:30 | NUR ---
PATIENT ASSISTED OOB TO BS TO VOID YELLOW URINE AND THE ASSISTED BACK TO BED. PATIENT MEDICATED WITH PERCOCET 10/325MG PO FOR PAIN WITH RESTORIL 30 MG PO FOR SLEEP. PATIENT CONT TO BE UNHAPPY WITH CURRENT PAIN MANAGEMENT PLAN-WANTS MORE PAIN MEDS. PATIENT DOESN'T SEEM TO BE IN ANY SEVERE DISTRESS AT THIS TIME EVEN THOUGH PATIENT STATES THAT HER PAIN LEVEL IS 10/10 ON PAIN SCALE. ATTEMPT TO EDUCATE PATIENT REGUARDING POSSIBLE COMPLICATION OF EXCESSIVE USE OF NARCOTIC WITH LITTLE SUCCESS. SAFETY PRECAUTIONS REINFORCED. CALL LIGHT IN REACH. WILL CONT TO MONITOR.
--- NOTE | 2016-11-19 00:32 | NUR ---
PATIENT APPEARS SLEEPING AT THIS TIME WITH O2 VIA NASAL CANNULA IN PLACE. CALL LIGHT IN REACH. WILL CONT TOMONITOR.
[2016-11-19 03:42] VITALS: BP 137/82
--- NOTE | 2016-11-19 04:17 | NUR ---
PATIENT UP TO BSC TO VOID AND THEN BACK TO BED. PATIENT MEDICATED FOR 10/10 POST-OP PAIN WITH PERCOCET 10/325MG PO. BLOOD DRAWN FOR AM LABS FROM PICC LINE WITHOUT ANY DIFFICULTY. CALL LIGHT IN REACH. WILL CONT TO MONITOR.
[2016-11-19 04:44] LABS: HEMATOCRIT 32.7 % (37.0-47.0); IMMATURE GRANULOCYTES 0.7 % (0.0-1.0); MEAN CELL VOLUME 87.2 fL CALC (80.0-100.0); MEAN CORPUSCULAR HGB 26.7 pG CALC (26.0-32.0); MEAN CORPUSCULAR HGB CONC 30.6 g/L CALC (32.0-36.0); NEUT# 6.23 thou/uL (2.00-7.15); RED BLOOD COUNT 3.75 mill/uL (4.20-5.60); RED CELL DISTRI WIDTH 18.6 % (11.5-15.5)
[2016-11-19 04:56] LABS: ALBUMIN 2.7 g/dL (3.2-5.0); ALKALINE PHOSPHATASE 87 u/l (38-126); ANION GAP 10 (6-22 (CALC)); BILIRUBIN, TOTAL 0.6 mg/dL (0.0-1.4); BUN 8 mg/dL (8-23); BUN/CREATININE RATIO 15 (12-20 (CALC)); CALCIUM 8.3 mg/dL (8.4-10.2); CARBON DIOXIDE 35 mmol/l (22-30); CHLORIDE 101 mmol/l (95-108); CREATININE 0.5 mg/dL (0.5-1.0); GFR > 60 ML/MIN (>=60 (CALC)); GFR FOR AFR.AMER. > 60 ML/MIN (>=60 (CALC)); GLUCOSE 92 mg/dL (82-115); POTASSIUM 3.9 mmol/l (3.5-5.1); SGOT/AST 17 u/l (9-36); SGPT/ALT 25 u/l (11-66); SODIUM 141 mmol/l (137-146); TOTAL PROTEIN 5.5 g/dL (6.3-8.2)
--- NOTE | 2016-11-19 07:00 | NUR ---
SHIFT CHANGE REPORT FROM GAIL SUN SLEEPING COMFORTABLY, BREATHING EVEN AND NON-LABORED, NO SIGN DISCOMFORT, CALL ANDINO IN REACH.
[2016-11-19 08:14] VITALS: BP 120/67
[2016-11-19] MEDS ORDERED: OXYCOD/APAP1 TA4 PO (09:02)
[2016-11-19] MEDS ORDERED: DURAGESIC100 MCG/HR TD (09:02)
--- NOTE | 2016-11-19 10:03 | NUR ---
PATIENT PERFORMED TOILET TRANSFER TODAY TO THE BEDSIDE COMMODE WITH MIN A AND GAIT BELT IN PLACE. SHE AMBULATED WITH ROLLING WALKER ABOUT 30 FEET X 2 OUT INTO THE HALLWAY WITH CGA. SHE WAS ABLE TO GET BACK INTO THE RECLINER USING THE ROLLING WALKER AND GAIT BELT. NO UNTOWARD INCIDENT HAPPENED.
--- NOTE | 2016-11-19 12:00 | NUR ---
IN BED HAVING MEAL AT THIS TIME, REQUESTED ASSIST TO BSC AND BACK TO BED TO [place], REFUSED TO SIT UP IN RECLINER FOR MEAL, CALL SINA IN REACH.
--- NOTE | 2016-11-19 15:34 | NUR ---
Pt. seen this PM for gait training, gait belt and non skid socks applied. Pt. found sitting at edge of bed and in agreement to participate. Sit to stand with min. assist of 1. Pt. ambulated into hallway 1x45 feet using RW with CGA of 1, pt. ambulated with short step on left. Verbal cues for posture awareness. Pt. returned to resting in bed with mod. assist of 1 to bring left LE up to bed. Pt. without complaints, call ortega and bedside table left within reach.
--- NOTE | 2016-11-19 17:00 | NUR ---
REPORTS PAIN LEVEL @ 10/10 ALWAYS, ASSISTED TO BSC AND BACK TO BED, INFORMED OF POST-OP SWELLING WHICH WAS CONCERNING THAT THIS IS A COMMON OCCURANCE AND WILL RECEDE EVENTUALLY, CALL ANDINO IN REACH.
--- NOTE | 2016-11-19 17:45 | NUR ---
Discharge instructions given. Patient verbalizes understanding of same. Discharged in stable condition via [facility] to [facility] with *Other. All belongings sent with pt.
--- NOTE | 2016-11-19 18:41 | NUR ---
REPORT CALLED TO FRANCIE AT [facility], QUESTIONED ABOUT SCRIPTS FOR NARCOTICS AND INFORMED MD SENT ONLY 2 SCRIPTS AND STATED PAIN MANAGEMENT DOCTOR SHOULD ADDRESS OTHER NARCOTICS PT IS TAKING. INFORMED DR KAY IS HER PAIN MANAGEMENT MD AND GIVEN CONTACT NUMBER.
== END 2016-11-19 17:44 | DRG 470 ==
LOC: MS2 11-15 06:47
PROVIDERS: Internal Medicine; ADMIT Orthopaedic Surgery; ATTEND Internal Medicine Geriatric Medicine
PROC: 0SRD0J9 Replacement of Left Knee Joint with Synthetic Substitute, Cemented, Open Approach (ICD-10-PCS; principal; 2016-11-15)
DX: M17.0 Bilateral primary osteoarthritis of knee (principal); I11.0 Hypertensive heart disease with heart failure; I50.9 Heart failure, unspecified; F41.9 Anxiety disorder, unspecified; E03.9 Hypothyroidism, unspecified; F19.20 Other psychoactive substance dependence, uncomplicated; D50.9 Iron deficiency anemia, unspecified; M75.51 Bursitis of right shoulder; K21.9 Gastro-esophageal reflux disease without esophagitis; G47.30 Sleep apnea, unspecified; G89.29 Other chronic pain; Z98.84 Bariatric surgery status
CPT/HCPCS: J2270

== ENCOUNTER 2017-01-10 09:22 | Inpatient (IN) | payer MEDICARE ==
[~2017-01-10] VITALS: Ht 157.5 cm; Wt 108.9 kg
[2017-01-10] VITALS (8 sets, daily range): BP systolic 105–138; BP diastolic 32–80
[~2017-01-10 09:22] MED LIST changes: +DURAGESIC100 MCG/HR TD; +OXYCOD/APAP1 TA4 PO
[2017-01-11 00:15] VITALS: BP 130/82
[2017-01-11 04:45] VITALS: BP 134/84
[2017-01-11 06:53] LABS: HEMATOCRIT 37.7 % (37.0-47.0); HEMOGLOBIN 11.6 g/dl (12.0-16.0); IMMATURE GRANULOCYTES 0.4 % (0.0-1.0); MEAN CELL VOLUME 84.2 fL CALC (80.0-100.0); MEAN CORPUSCULAR HGB 25.9 pG CALC (26.0-32.0); MEAN CORPUSCULAR HGB CONC 30.8 g/L CALC (32.0-36.0); NEUT# 3.37 thou/uL (2.00-7.15); RED BLOOD COUNT 4.48 mill/uL (4.20-5.60); RED CELL DISTRI WIDTH 17.3 % (11.5-15.5)
[2017-01-11 07:05] LABS: ALBUMIN 2.9 g/dL (3.2-5.0); ALKALINE PHOSPHATASE 90 u/l (38-126); ANION GAP 13 (6-22 (CALC)); BILIRUBIN, TOTAL 0.4 mg/dL (0.0-1.4); BUN 12 mg/dL (8-23); BUN/CREATININE RATIO 20 (12-20 (CALC)); CALCIUM 8.5 mg/dL (8.4-10.2); CARBON DIOXIDE 32 mmol/l (22-30); CHLORIDE 104 mmol/l (95-108); CREATININE 0.6 mg/dL (0.5-1.0); GFR > 60 ML/MIN (>=60 (CALC)); GFR FOR AFR.AMER. > 60 ML/MIN (>=60 (CALC)); GLUCOSE 83 mg/dL (82-115); POTASSIUM 4.5 mmol/l (3.5-5.1); SGOT/AST 19 u/l (9-36); SGPT/ALT 18 u/l (11-66); SODIUM 145 mmol/l (137-146)
[2017-01-11 07:35] LABS: TSH, 3RD GENERATION 0.58 uIU/mL (0.47 - 4.68)
[2017-01-11 08:00] VITALS: BP 141/71
== END 2017-01-11 12:28 | disposition home health service (06) | DRG 501 ==
LOC: ORM 09:22 → PO 13:15 → ORM 13:15 → MS2 13:52 → ORM 16:30 → MS2 01-11 12:28
PROVIDERS: ADMIT Internal Medicine Geriatric Medicine; ATTEND Orthopaedic Surgery
PROC: 0LQR0ZZ Repair Left Knee Tendon, Open Approach (ICD-10-PCS; principal; 2017-01-10)
DX: S76.112A Strain of left quadriceps muscle, fascia and tendon, initial encounter (principal); F33.2 Major depressive disorder, recurrent severe without psychotic features; J44.9 Chronic obstructive pulmonary disease, unspecified; F19.20 Other psychoactive substance dependence, uncomplicated; I10 Essential (primary) hypertension; D64.9 Anemia, unspecified; E03.9 Hypothyroidism, unspecified; K21.9 Gastro-esophageal reflux disease without esophagitis; M19.90 Unspecified osteoarthritis, unspecified site; G47.30 Sleep apnea, unspecified; G89.29 Other chronic pain; M54.5 Low back pain; W19.XXXA Unspecified fall, initial encounter; Y92.129 Unspecified place in nursing home as the place of occurrence of the external cause; Z96.652 Presence of left artificial knee joint; Z98.84 Bariatric surgery status; Z47.1 Aftercare following joint replacement surgery; Z01.818 Encounter for other preprocedural examination; M17.0 Bilateral primary osteoarthritis of knee; Z86.2 Personal history of diseases of the blood and blood-forming organs and certain disorders involving the immune mechanism; M54.30 Sciatica, unspecified side; E66.01 Morbid (severe) obesity due to excess calories; I25.10 Atherosclerotic heart disease of native coronary artery without angina pectoris; K27.9 Peptic ulcer, site unspecified, unspecified as acute or chronic, without hemorrhage or perforation; G25.2 Other specified forms of tremor; M43.26 Fusion of spine, lumbar region

== ENCOUNTER 2017-10-10 17:30 | Inpatient (IN) | payer MEDICARE ==
[~2017-10-10] VITALS: Ht 157.5 cm; Wt 92.0 kg
[~2017-10-10 17:30] MED LIST changes: +XANAX1 MG PO; +omeprazole PO
[2017-10-10 18:00] VITALS: BP 84/60
--- NOTE | 2017-10-10 18:00 | NUR ---
RECEIVED PT A DIRECT ADMIT FROM DR. HEATON'S OFFICE. VITALS SIGNS TAKEN. 02 VIA NASAL CANULA AT 3 LITERS WITH HUMIDIFER. ROOM ARRANGEMENT DISCUSSED. CALL LIGHT EXPLAINATION GIVEN. NO RESP. DISTRESS NOTED. NO COMPLAINTS VOICED. PLAN OF CARE DISCUSSED WITH PATIENT.
[2017-10-10 18:45] LABS: HEMATOCRIT 40.9 % (37.0-47.0); HEMOGLOBIN 12.7 g/dl (12.0-16.0); IMMATURE GRANULOCYTES 0.4 % (0.0-1.0); MEAN CELL VOLUME 88.7 fL CALC (80.0-100.0); MEAN CORPUSCULAR HGB 27.5 pG CALC (26.0-32.0); MEAN CORPUSCULAR HGB CONC 31.1 g/L CALC (32.0-36.0); NEUT# 4.91 thou/uL (2.00-7.15); RED BLOOD COUNT 4.61 mill/uL (4.20-5.60); RED CELL DISTRI WIDTH 15.3 % (11.5-15.5)
[2017-10-10 18:56] LABS: ANION GAP 7 (6-22 (CALC)); BUN 12 mg/dL (8-23); BUN/CREATININE RATIO 18 (12-20 (CALC)); CARBON DIOXIDE 34 mmol/l (22-30); CHLORIDE 103 mmol/l (95-108); CREATININE 0.7 mg/dL (0.5-1.0); GFR > 60 ML/MIN (>=60 (CALC)); GFR FOR AFR.AMER. > 60 ML/MIN (>=60 (CALC)); POTASSIUM 4.2 mmol/l (3.5-5.1); SODIUM 139 mmol/l (137-146)
--- NOTE | 2017-10-10 20:15 | NUR ---
PT.ASSESSED. LUNG SOUNDS ARE CLEAR, ABD SOFT/NON-TENDER, NO NOTED EDEMA, SKIN AND NEURO'S ARE INTACT. PT.DENIES ANY SOB AT THIS TIME. NO S/S OF DISTRESS NOTED. CALL LIGHT W/IN REACH AND PT ENCOURAGED TO CALL IF ANY NEEDS ARISE. MEAGHAN IS UP FROM ED TO PLACE IV FOR PT.
[2017-10-10 20:43] VITALS: BP 123/69
[2017-10-11] VITALS (12 sets, daily range): BP systolic 69–126; BP diastolic 43–74
--- NOTE | 2017-10-11 00:30 | NUR ---
MEDICATED PT W/ANTIBIOTIC IV THERAPY AND OTHER PM MEDICATIONS ORDERS PROVIDE. PT.IS REQUESTING PAIN MEDICATION FOR "UNCOMFORTABLENESS" IN HER BACK. I AM AWAITING PHARMACY TO VERIFY ORDER AND WILL MEDICATE SOON I CAN. PT.DENIES ANY SOB AND REPORTS NON-PRODUCTIVE COUGH. UA HAS BEEN COLLECTED AND SENT TO LAB. [place] [facility] [place]
[2017-10-11 01:08] LABS: URINE BILIRUBIN - DIPSTICK NEGATIVE (NEGATIVE); URINE BLOOD DIPSTICK NEGATIVE (NEGATIVE); URINE COLOR YELLOW; URINE GLUCOSE - DIPSTICK NEGATIVE (NEGATIVE); URINE KETONE NEGATIVE (NEGATIVE); URINE LEUK ESTERASE TRACE (Negative); URINE NITRITE - DIPSTICK NEGATIVE (Negative); URINE PROTEIN - DIPSTICK NEGATIVE (NEG-TRACE); URINE UROBILINOGEN - DIPSTICK 0.2 E.U./dL (0.2)
[2017-10-11 01:10] LABS: URINE CLARITY HAZY
--- NOTE | 2017-10-11 03:40 | NUR ---
PT.IS SLEEPING AT THIS TIME. IV SITE IS POSITIONAL, ARM ELEVATED ON PILLOW. CALL LIGHT AT SIDE.
--- NOTE | 2017-10-11 05:58 | NUR ---
PT.MEDICATED W/SYNTHROID. NO S/S OF DISTRESS AT THIS TIME. DENIES ANY NEEDS.
--- NOTE | 2017-10-11 08:00 | NUR ---
PT SEEN AWAKE, ALERT, NO DISTRESS. NO COUGH HEARD. PT MEDICATED FOR BACK PAIN.
[2017-10-11 08:33] LABS: HEMATOCRIT 40.4 % (37.0-47.0); HEMOGLOBIN 12.6 g/dl (12.0-16.0); IMMATURE GRANULOCYTES 0.4 % (0.0-1.0); MEAN CORPUSCULAR HGB 27.8 pG CALC (26.0-32.0); MEAN CORPUSCULAR HGB CONC 31.2 g/L CALC (32.0-36.0); NEUT# 3.61 thou/uL (2.00-7.15); RED BLOOD COUNT 4.54 mill/uL (4.20-5.60); RED CELL DISTRI WIDTH 15.3 % (11.5-15.5)
[2017-10-11 08:40] LABS: ALBUMIN 2.9 g/dL (3.2-5.0); ALKALINE PHOSPHATASE 98 u/l (38-126); ANION GAP 9 (6-22 (CALC)); BILIRUBIN, TOTAL 0.3 mg/dL (0.0-1.4); BUN 12 mg/dL (8-23); BUN/CREATININE RATIO 20 (12-20 (CALC)); CARBON DIOXIDE 31 mmol/l (22-30); CHLORIDE 104 mmol/l (95-108); CREATININE 0.6 mg/dL (0.5-1.0); GFR > 60 ML/MIN (>=60 (CALC)); GFR FOR AFR.AMER. > 60 ML/MIN (>=60 (CALC)); POTASSIUM 3.6 mmol/l (3.5-5.1); SGOT/AST 19 u/l (9-36); SGPT/ALT 18 u/l (11-66); SODIUM 141 mmol/l (137-146); TOTAL PROTEIN 5.8 g/dL (6.3-8.2)
[2017-10-11] MEDS ORDERED: LYRICA300 MG PO (13:10)
[2017-10-11] MEDS ORDERED: TIZANIDINE4 MG PO (13:11)
[2017-10-11] MEDS ORDERED: DITROPAN5 MG/TA1 PO (13:12)
--- NOTE | 2017-10-11 13:30 | NUR ---
RECIEVED REPORT FROM GUERDA Dai TO BE TRANSFERRED TO ICU #3.
--- NOTE | 2017-10-11 13:46 | NUR ---
PT ARRIVED TO ICU BED# VIA W/C. PT ALERT AND ABLE TO MAKE ALL NEEDS KNOWN. PERRL, O2@3LPM VIA NC, LS CLEAR THROUGHOUT. BSX4 ACTIVE, PT REPORTS PASSING GAS. PT DENIES BURNING OR DISCOMFORT WITH URINATION. PT SKIN IS CDI. PT WITH 22G TO LAC SL, FLUSHES WITHOUT DIFFICULTY. 22 G TO RFA WITH INFUSING ORDERED. PT DENIES SOB, CHEST PAIN OR DISTRESS AT THIS TIME. PT ORIENTED TO ROOM, UNIT, CALL LIGHT AND SAFETY. BED IN LOWEST POSITION, CALL LIGHT IN REACH. WILL MONITOR.
--- NOTE | 2017-10-11 15:00 | NUR ---
PT RESTING IN BED WITH EYES CLOSED, OFFERS NO COMPLAINTS AT THIS TIME. CALL LIGHT IN REACH, WILL MONITOR.
--- NOTE | 2017-10-11 16:37 | NUR ---
PT RESTING IN BED, SR ON TELEMETRY, IV INFUSING ORDERED TO RFA, NO S/S OF INFILTRATION NOTED AT THIS TIME. O2@3LPM VIA NC, CALL LIGHT IN REACH, WILL MONITOR.
--- NOTE | 2017-10-11 18:00 | NUR ---
PT ASSISTED TO BSC, VOIDED WITHOUT DIFFICULTY. PT DENIES SOB, CHEST PAIN OR DISTRESS AT THIS TIME. PT REMAINS SR ON TELEMETRY. IV INFUSING ORDERED AT [facility], NO S/S OF INFILTRATION NOTED AT SITE. PT STATED SHE WAS FEELING A LITTLE NAUSEA, CRACKERS OFFERED AND TAKEN WITH SOME RESOLUTION. BED IN LOWEST POSITION, CALL LIGHT IN REACH, WILL MONITOR.
--- NOTE | 2017-10-11 19:10 | NUR ---
PT IN [place] WATCHING TV, RESPIRATIONS EVEN AND UNLABORED ON O2 @3L VIA NC. DENIES PAIN AT THIS TIME, ADMITS TO PAIN TO RIGHT KNEE WHEN AMBULATING, AND ADMITS TO RIGHT KNEE REPLACEMENT SCHEDULED IN ONE WEEK. D5NS INFUSING TO RFA AT 100CC/HR. PO FLUIDS IN REACH, BSC AT BED SIDE. ENCOURAGED TO USE CALL LIGHT FOR ASSISTANCE. WILL CONTINUE TO MONITOR.
--- NOTE | 2017-10-11 19:20 | NUR ---
PT IN [place] WATCHING TV, RESPIRATIONS EVEN AND UNLABORED ON O2 @3L VIA NC. DENIES PAIN AT THIS TIME, ADMITS TO PAIN TO RIGHT KNEE WHEN AMBULATING, AND ADMITS TO RIGHT KNEE REPLACEMENT SCHEDULED IN ONE WEEK. D5 1/2NS INFUSING TO RFA AT 100CC/HR. PO FLUIDS IN REACH, BSC AT BED SIDE. ENCOURAGED TO USE CALL LIGHT FOR ASSISTANCE, WILL CONTIUE TO MONITOR.
--- NOTE | 2017-10-11 22:30 | NUR ---
OOB TO BSC WITH STANDBY ASSISTANCE, VOIDING 150ML CLEAR YELLOW URINE. BACK TO BED. BIPAP APPLIED BY JOURDAN GALVAN AT THIS TIME. PT ASKING ABOUT TRAZODONE STATES SHE USUALLY TAKE 200MG AT BED TIME, NOTIFIED TRAZODONE IS NOT ON MAY BUT WILL CALL DR. HEATON, DR. HEATON STATES MAY HAVE SONATA TONIGHT AND WILL SPEAK TO PT REGARDING TRAZODONE IN THE MORNING.
[2017-10-12] VITALS (13 sets, daily range): BP systolic 75–123; BP diastolic 36–80
--- NOTE | 2017-10-12 00:15 | NUR ---
RESTING WITH EYES CLOSED, RESPIRATIONS EVEN AND UNLABORED ON BIPAP. CALL LIGHT IN REACH.
--- NOTE | 2017-10-12 02:26 | NUR ---
RESTING WITH EYES CLOSED, RESPIRATIONS EVEN AND UNLABORED ON BIPAP. CALL LIGHT IN REACH.
--- NOTE | 2017-10-12 03:20 | NUR ---
OOB TO BSC WITH ONE PERSON ASSISTANCE, VOIDING 150ML OF CLEAR YELLOW URINE, THEN BACK TO BED, BIPAP IN PLACE, O2 SAT 98%. CALL LIGHT IN REACH.
--- NOTE | 2017-10-12 04:00 | NUR ---
PT CALLED STAFF TO ROOM, STATES "I DON'T LIKE THIS" REFERING TO BIPAP, AND REQUESTING TO KEEP IT OFF. O2 @3L VIA NC APPLIED. O2 SAT 94%
[2017-10-12 05:15] LABS: HEMATOCRIT 37.7 % (37.0-47.0); HEMOGLOBIN 11.8 g/dl (12.0-16.0); IMMATURE GRANULOCYTES 0.4 % (0.0-1.0); MEAN CORPUSCULAR HGB 28.2 pG CALC (26.0-32.0); MEAN CORPUSCULAR HGB CONC 31.3 g/L CALC (32.0-36.0); NEUT# 3.27 thou/uL (2.00-7.15); RED BLOOD COUNT 4.19 mill/uL (4.20-5.60); RED CELL DISTRI WIDTH 15.5 % (11.5-15.5)
[2017-10-12 05:38] LABS: ALBUMIN 2.7 g/dL (3.2-5.0); ALKALINE PHOSPHATASE 90 u/l (38-126); ANION GAP 9 (6-22 (CALC)); BILIRUBIN, TOTAL 0.3 mg/dL (0.0-1.4); BUN 12 mg/dL (8-23); BUN/CREATININE RATIO 23 (12-20 (CALC)); CARBON DIOXIDE 30 mmol/l (22-30); CHLORIDE 104 mmol/l (95-108); CREATININE 0.5 mg/dL (0.5-1.0); GFR > 60 ML/MIN (>=60 (CALC)); GFR FOR AFR.AMER. > 60 ML/MIN (>=60 (CALC)); POTASSIUM 3.5 mmol/l (3.5-5.1); SGOT/AST 18 u/l (9-36); SGPT/ALT 15 u/l (11-66); SODIUM 140 mmol/l (137-146); TOTAL PROTEIN 5.6 g/dL (6.3-8.2)
--- NOTE | 2017-10-12 09:00 | NUR ---
PT TO XRAY AND BACK VIA WHEELCHAIR. DR HEATON HAS SEEN PT, TO DC IVF AND KEEP OVERNIGHT IN ICU ONE MORE NIGHT TO USE CPAP AGAIN. LUNGS CLEAR, 2 LPM NC.
--- NOTE | 2017-10-12 13:31 | NUR ---
PT UP TO BSC NEEDED, MINIMAL ASSIST. NO DISTRESS, NO COMPLAINTS OF SHORTNESS OF BREATH.
--- NOTE | 2017-10-12 16:28 | NUR ---
PT SEEN RESTING IN THE BED, NO DISTRESS. HER BP DOES LOWER WITH DEEP SLEEP, NO EVIDENCE OF DISTRESS OTHERWISE.
--- NOTE | 2017-10-12 19:43 | NUR ---
PT IN BED A/O X3, WATCHING TV, RESPIRATIONS EVEN AND UNLABORED ON O2 @2L VIA NC, O2 SAT 98%. C/O BACK AND RIGHT KNEE PAIN 08/07, ROXICODONE PROVIDED PER MAY. IV TO RFA IS HL, FLUSHES WELL. PO FLUIDS IN REACH, WILL CONTINUE TO MONITOR.
--- NOTE | 2017-10-12 23:40 | NUR ---
OOB TO BSC, VOIDING CLEAR YELLOW URINE, THEN BACK TO BED WITH NO ASSISTANCE. JOURDAN RT, PLACED PT OF BIPAP AT THIS TIME, O2 SAT 97%.
[2017-10-13] VITALS: BP 79/45
--- NOTE | 2017-10-13 01:16 | NUR ---
PT HAS REMOVED BIPAP MASK, VOICES BEING UNCOMFORTABLE. C/O BACK AND RIGHT KNEE PAIN 12/08, ROXICODONE PROVIDED PER MAY.
--- NOTE | 2017-10-13 01:45 | NUR ---
OOB TO BSC, BIPAP REMOVED, VOIDING 50ML CLEAR YELLOW URINE, BACK TO BED. BIPAP REAPPLIED.
[2017-10-13 02:00] VITALS: BP 81/45
[2017-10-13 04:00] VITALS: BP 106/56
[2017-10-13 04:19] LABS: HEMOGLOBIN 11.3 g/dl (12.0-16.0); IMMATURE GRANULOCYTES 0.6 % (0.0-1.0); MEAN CELL VOLUME 89.6 fL CALC (80.0-100.0); MEAN CORPUSCULAR HGB 28.1 pG CALC (26.0-32.0); MEAN CORPUSCULAR HGB CONC 31.4 g/L CALC (32.0-36.0); NEUT# 4.74 thou/uL (2.00-7.15); RED BLOOD COUNT 4.02 mill/uL (4.20-5.60); RED CELL DISTRI WIDTH 15.4 % (11.5-15.5)
--- NOTE | 2017-10-13 04:30 | NUR ---
BIPAP REMOVED BY RT AT THIS TIME, PT VOICES HOW UNCOMFORTABLE SHE WAS DURING THE NIGHT AND COULDN'T SLEEP WELL WITH BIPAP. O2 @2L VIA NC APPLIED O2 SATS 96%, CALL LIGHT IN REACH.
[2017-10-13 04:39] LABS: ALBUMIN 2.6 g/dL (3.2-5.0); ALKALINE PHOSPHATASE 90 u/l (38-126); ANION GAP 6 (6-22 (CALC)); BILIRUBIN, TOTAL 0.3 mg/dL (0.0-1.4); BUN 12 mg/dL (8-23); BUN/CREATININE RATIO 18 (12-20 (CALC)); CARBON DIOXIDE 31 mmol/l (22-30); CHLORIDE 104 mmol/l (95-108); CREATININE 0.7 mg/dL (0.5-1.0); GFR > 60 ML/MIN (>=60 (CALC)); GFR FOR AFR.AMER. > 60 ML/MIN (>=60 (CALC)); POTASSIUM 3.7 mmol/l (3.5-5.1); SGOT/AST 14 u/l (9-36); SGPT/ALT 19 u/l (11-66); SODIUM 138 mmol/l (137-146); TOTAL PROTEIN 5.4 g/dL (6.3-8.2)
[2017-10-13 06:00] VITALS: BP 81/40
--- NOTE | 2017-10-13 07:20 | NUR ---
PT SITTING UP IN BED WATCHING TV, PT VERBALIZES NO COMPLAINTS, PT A & O X3, PERRL, HR 76, RESP. 20, BP 81/40, O2 95% ON 2L VIA NC, LUNG SOUNDS CLEAR IN ALL JACK, STRONG RADIAL PULSES, WEAK PEDAL PULSES, ABD DISTENDED & SOFT, ACTIVE BOWEL SOUNDS, 22G RFA IV, SALINE LOCKED, NO REDNESS OR DRAINAGE AT SITE, AM ASSESSMENT COMPLETE, SEE INTERVENTIONS, SAFETY MEASURES REINFORCED, CALL ANDINO WITHIN REACH
[2017-10-13 08:00] VITALS: BP 104/62
--- NOTE | 2017-10-13 08:03 | NUR ---
DR HEATON AT BEDSIDE DISCUSSING PLAN OF CARE AND DISCHARGE PLAN
--- NOTE | 2017-10-13 08:25 | NUR ---
PT ASSISTED OUT OF BED TO THE RECLINER, PT AMBULATED WITH A SLOW STEADY GAIT, REMINDED TO CALL FOR ASSISTANCE, CALL ANDINO WITHIN REACH
--- NOTE | 2017-10-13 09:25 | NUR ---
CALL PLACED TO DR HEATON'S OFFICE, SPOKE WITH CINDY THE SCHEDULE APPOINTMENTS THE FOLLOW APPOINTMENTS WERE GIVEN 1) MATTEO SCAN STRESS TEST 10/21/17 @ 1030 2) ECHO 10/23/17 @ 1230 3)FOLLOW UP WITH DR HEATON 10/29/17 @ 1067
--- NOTE | 2017-10-13 10:04 | NUR ---
22G RFA IV REMOVED, TIP INTACT
--- NOTE | 2017-10-13 10:15 | NUR ---
Discharge instructions given. Patient verbalizes understanding of same. Discharged in stable condition via Wheelchair to Home with spouse. All belongings sent with pt.
== END 2017-10-13 10:15 | disposition home or self-care (01) | DRG 191 ==
LOC: ICU 17:30 → MS2 17:30 → ICU 10-11 13:52
PROVIDERS: ADMIT Internal Medicine Geriatric Medicine; ATTEND Internal Medicine Geriatric Medicine
PROC: 5A09357 Assistance with Respiratory Ventilation, Less than 24 Consecutive Hours, Continuous Positive Airway Pressure (ICD-10-PCS; principal; 2017-10-11)
DX: J44.1 Chronic obstructive pulmonary disease with (acute) exacerbation (principal); F11.20 Opioid dependence, uncomplicated; I50.32 Chronic diastolic (congestive) heart failure; J96.10 Chronic respiratory failure, unspecified whether with hypoxia or hypercapnia; J44.0 Chronic obstructive pulmonary disease with (acute) lower respiratory infection; J20.9 Acute bronchitis, unspecified; I11.0 Hypertensive heart disease with heart failure; D50.9 Iron deficiency anemia, unspecified; I25.10 Atherosclerotic heart disease of native coronary artery without angina pectoris; E03.9 Hypothyroidism, unspecified; F32.9 Major depressive disorder, single episode, unspecified; F41.1 Generalized anxiety disorder; E78.5 Hyperlipidemia, unspecified; K21.9 Gastro-esophageal reflux disease without esophagitis; M17.11 Unilateral primary osteoarthritis, right knee; K27.9 Peptic ulcer, site unspecified, unspecified as acute or chronic, without hemorrhage or perforation; G89.29 Other chronic pain; M54.5 Low back pain; M79.7 Fibromyalgia; G47.30 Sleep apnea, unspecified; E66.01 Morbid (severe) obesity due to excess calories; Z68.37 Body mass index [BMI] 37.0-37.9, adult; Z98.84 Bariatric surgery status; Z91.19 Patient's noncompliance with other medical treatment and regimen

== ENCOUNTER 2018-01-01 09:45 | Inpatient (IN) | payer MEDICARE ==
[~2018-01-01] VITALS: Ht 157.5 cm; Wt 99.8 kg
[~2018-01-01 09:45] MED LIST changes: -ALPRAZOLAM0.5 MG PO; -PERCOCET 5/321 COMBO PO
[2018-01-05] VITALS (10 sets, daily range): BP systolic 93–130; BP diastolic 34–74
--- NOTE | 2018-01-05 11:10 | NUR ---
NICOLÁS CAME FROM [place] VIA BED BY LUZ MARINA. PT IS SHAKING AND STATED IS DUE TO SHE HAS PAIN ON RIGHT KNEE 01/07. PT IS A&O X3. LUZ MARINA STATED THAT THEY MEDICATED HER WITH PAIN MEDICATIONS LESS THAN AN HOUR AGO. ENCOURAGE PT TO TAKE DEEP BREATHS. PT VERBALIZED UNDERSTADING. RIGHT KNEE DRESSING IS CDI. RIGHT LEG IS WARM TO THE TOUCH WITH PULSE. ICE PACK APPLIED TO RIGHT KNEE. SCD IN PLACE. 02 AT 2L/MIN VIA NC. PO FLUIDS AND ICE CHIPS PROVIDED. SAFETY PRECAUTIONS REINFROCED AND CALL LIGHT IN REACH.
--- NOTE | 2018-01-05 11:58 | NUR ---
MEDICATED PT WITH XNANX. ENCOURAGE PT TO USE INCENTIVE SPIROMETRY PT VERBALIZED UNDERSTANDING. INTERNAL JUGULAR/LR 100ML/HR INFUSING WELL. CALL LIGHT IN REACH.
--- NOTE | 2018-01-05 13:26 | NUR ---
PT IS MOANING AND STATED THAT HER PAIN IS 10/10 IN HER RIGHT KNEE. MEDICATED PT WITH PERCOCET SEE EMAR. REMOVED FENTAYLE 100MCG PATCH. PT STATED THAT PATCH IS 4 DAYS OLD. PT DENIES ANY OTHER NEEDS AT THIS TIME. CALL LIGHT IN REACH.
--- NOTE | 2018-01-05 16:21 | NUR ---
MEDICATED PT WITH DILAUDID FOR RIGHT KNEE PAIN 01/07. PT P- 81 AND O2 94% AT 2L/MIN. PT DENIES ANY OTHER NEEDS AT THIS TIME. IN ROOM. CALL LIGHT IN REACH.
--- NOTE | 2018-01-05 20:00 | NUR ---
PATIENT RESTING IN BED-DROWSY BUT STILL COMPLAINING OF SEVERE POST-OP PAIN TO RIGHT KNEE. IV SITE TO RIGHT IJ-TLC WITH IVF LR PATENT AND INFUSING AT 100CC/HR. SITE APPEARS HELATHY AT THIS TIME. RIGHT KNEE WITH DRESSING CDI AND SECURED WITH JU WRAP. ICE PACKS ON AND OFF ORDERED TO RIGHT KNEE. ENCOURAGED USE OF IS Q1H WHILE AWAKE-NEEDS REINFORCEMENT. SCD IN PLACE. O2 VIA NASAL CANNULA IN PLACE AT 2LPM. ENCOURAGED CDB EXERCISE-PATIENT DROWSY AND NEEDS REINFORCEMENT SAFETY PRECAUTIONS REINFORCED.CALL LIGHT IN REACH. WILL CONT TO MONITOR.
[2018-01-06] VITALS (7 sets, daily range): BP systolic 100–121; BP diastolic 50–70
--- NOTE | 2018-01-06 02:30 | NUR ---
PATIENT RESTING IN BED-C/O RIGHT KNEE PAIN. PATIENT MEDICATED WITH DILAUDID 1MG IVP PER PATIENT REQUEST. IV SITE TO RIGHT IJ INTACT WITH IVF LR PATENT AND INFUSING AT 100CC/HR. SITE APPEARS HEALTHY AT THIS TIME. VOIDING ON BEDPAN THROUGHOUT THE NIGHT. SAFETY PRECAUTIONS REINFORCED. CALL LIGHT IN REACH. WILL CONT TO MONITOR.
--- NOTE | 2018-01-06 04:17 | NUR ---
LAB WORK DRAWN FROM RIGHT IJ-GOOD BLOOD RETURN. FLUSHED PER PROTOCOL. IVF LR PATENT AND INFUSING AT 100CC/HR. PATIENT IS MORE ALERT THIS MORNING. NOT DROWSY LAST NIGHT. RIGHT KNEE DRESSING REMAINS CDI AND SECURED WITH JU WRAP. ICE PACK TO THE RIGHT KNEE THROUGHOUT THE NIGHT. SCD IN PLACE. ENCOURAGED USE OF IS Q1H WHILE AWAKE. ABLE TO DEMONSTRATE PROPER USE OF THE DEVICE. O2 VIA NASAL CANNULA IN PLACE AT 2LPM. SAFETY PRECAUTIONS REINFORCED. CALL LIGHT IN REACH. WILL CONT TO MONITOR.
[2018-01-06 05:30] LABS: IMMATURE GRANULOCYTES 0.5 % (0.0-5.0); MEAN CELL VOLUME 87.9 fL CALC (80.0-100.0); MEAN CORPUSCULAR HGB 28.2 pG CALC (26.0-32.0); MEAN CORPUSCULAR HGB CONC 32.1 g/L CALC (32.0-36.0); NEUT# 6.44 thou/uL (2.00-7.15); RED BLOOD COUNT 3.79 mill/uL (4.20-5.60); RED CELL DISTRI WIDTH 14.9 % (11.5-15.5)
[2018-01-06 05:42] LABS: ALBUMIN 2.5 g/dL (3.2-5.0); ALKALINE PHOSPHATASE 76 u/l (38-126); ANION GAP 8 (6-22 (CALC)); BILIRUBIN, TOTAL 0.2 mg/dL (0.0-1.4); BUN 11 mg/dL (8-23); BUN/CREATININE RATIO 19 (12-20 (CALC)); CARBON DIOXIDE 32 mmol/l (22-30); CHLORIDE 105 mmol/l (95-108); CREATININE 0.6 mg/dL (0.5-1.0); GFR > 60 ML/MIN (>=60 (CALC)); GFR FOR AFR.AMER. > 60 ML/MIN (>=60 (CALC)); POTASSIUM 4.1 mmol/l (3.5-5.1); SGOT/AST 28 u/l (9-36); SODIUM 141 mmol/l (137-146); TOTAL PROTEIN 5.2 g/dL (6.3-8.2)
[2018-01-06 06:03] LABS: HEMATOCRIT 33.3 % (37.0-47.0); HEMOGLOBIN 10.7 g/dl (12.0-16.0)
--- NOTE | 2018-01-06 06:28 | NUR ---
PATIENT MEDICATED FOR PAIN WITH PERCOCET 10/325MG PO TABS WITH NO RELIEF. STATES RIGHT KNEE PAIN IS 10/10 ON PAIN SCALE. MEDICATED WITH DILAUDID 1MG IVP FOR PAIN., RESTING IN BED. DRESSING TO RIGHT KNEE INTACT AND SECURED WITH JU WRAP.USING ICE PACKS TO RIGHT KNEE THROUGHOUT THE NIGHT ON AND OFF. IVF PATENT AND INFUSING VIA RIGHT IJ TLC-LR AT 100/HR. STILL ONLY TAKING SIPS OF PO FLUIDS. SAFETY PRECAUTIONS REINFORCED. CALL LIGHT IN REACH. WILL CONT TO MONITOR.
--- NOTE | 2018-01-06 07:10 | NUR ---
REPORT RECEIVED BY MARC. PT IS RESTING IN BED WITH NO S/S OF DISTRESS NOTED. PT DENIES NEEDS AT THIS TIME. CALL LIGHT IN REACH.
--- NOTE | 2018-01-06 08:54 | NUR ---
ASSESSMENT DONE. RESPS ARE SHALLOW. PT IS A&O X3. MEDICATED PT WITH DILAUDID SEE EMAR. RIGHT KNEE DCDI AND ICE PACK APPLIED. SCD IN PLACES. ENCOURAGE PT TO USE INCENTIVE SPIROMETRY. PT VERBALIZED UNDERSTANDING. LR 100ML/HR INFUSING WELL. SAFETY PRECAUTIONS REINFORCED AND CALL LIGHT IN REACH.
--- NOTE | 2018-01-06 10:07 | NUR ---
Pt seen this am for treatment. She was in bed reported being sore but did not give a pain level. Pt performed A/AAROM to R knee in supine and sitting. Sitting knee ext approx -30 degrees. Supine to sit with SBA, sitting balance on edge of bed was good. Pt attempted to stand with walker but was unable to. Stood x2 with mod assist x1 and was able to maintain for 30 sec or so. She performed stand pivot transfer with mod assist x 1 therapist. Some buckling of knees were noted. Pt positioned in chair with legs elevated and heels off loaded. Pt very concerned about IV in neck, nursing notified. Pt in chair with phone and call ortega in reach. Non skid socks and gait belt used during treatment.
--- NOTE | 2018-01-06 11:30 | NUR ---
MEDICATED PT WITH PERCOCET 2 COMBO FOR PAIN IN RIGHT KNEE AND XANAX SEE EMAR. PT IS SITTING IN RECLINER. X2 PERSON ASSIST PT TO BSC BUT PT STATED UNABLE TO GET TO BSC. PT STATED WANTS TO GO BACK TO BED. ASSISTED PT TO THE BED. PT DENIES ANY OTHER NEEDS AT THIS TIME. CALL LIGHT IN REACH.
--- NOTE | 2018-01-06 13:05 | NUR ---
JONI CAME AND STATED THAT HE WILL TAKE R INTERNAL JUGULAR TOMORROW. STATED THAT HE RECEIVED ORDERS FROM DR. HEATON FOR A PICC LINE FOR PT.
--- NOTE | 2018-01-06 13:20 | NUR ---
PT WENT VIA STRETCHER TO X-RAY FOR HER PICC LINE.
--- NOTE | 2018-01-06 13:21 | NUR ---
PM. TX WAS ATTEMPTED, HOWEVER, PT FIRMLY REFUSED STATING SHE WAS IN "A LOT OF PAIN" AT THE MOMENT AND THAT SHE ONLY WANTED TO TAKE SOME REST. ADVISED PT TO DO THE EXERCISES TAUGHT BY THERAPIST WHEN SHE FEELS BETTER.
--- NOTE | 2018-01-06 15:50 | NUR ---
PT IS SLEEPING IN BED WITH NO S/S OF DISTRESS NOTED. LIBAN PICC APPEAR HEALTHY. CALL LIGHT IN REACH.
--- NOTE | 2018-01-06 17:08 | NUR ---
MEDICATED PT WITH PRECOCET 2 COMBO FOR PAIN 10/10 IN RIGHT KNEE SEE EMAR. ICE PACK APPLIED TO RIGHT KNEE. PRUNE JUICE GIVEN. CALL LIGHT IN REACH.
--- NOTE | 2018-01-06 18:30 | NUR ---
JONI REOMVED THE RU INTERNAL JUGULAR PT TOLERATED WELL. CALL LIGHT IN REACH.
--- NOTE | 2018-01-06 19:30 | NUR ---
PATIENT RESTING IN BED AT THIS TIME-STATES THAT SHE IS HAVING SEVERE POST-OP PAIN TO RIGHT KNEE-USING ICE PACKS ON AND OFF. TOO EARLY FOR PERCOCET OR DILAUDID-WAS JUST MEDICATED LESS THAN 2HOURS AGO. PICC LINE TO LEFT UPPER ARM INTACT. PATIENT STATES THAT IT TOO PAINFUL TO GET OOB AND CONT TO USE BEDPAN TO VOID. ENCOURAGED INCREASED ACTIVITY UTILAZATION OF PHYSICAL THERAPY TO PREVENT POST-OP COMPLICATIONS. ASKING FOR XANAX AND MEDICATED ORDERED. ENCOURAGED USE OF IS-MUST BE REINFORCED TO USE. SAFETY PRECAUTIONS REINFORCED. CALL LIGHT IN REACH. WILL CONT TO MONITOR.
--- NOTE | 2018-01-06 21:01 | NUR ---
PATIENT RESTING IN BED WITH O2 VIA NASAL CANNULA IN PLACE. C/O POST-OP RIGHT KNEE PAIN-01/07. MEDICATED WITH DILAUDID 1MG IVP FOR PAIN. CALL LIGHT IN REACH. WILL CONT TO MONITOR,
[2018-01-07] VITALS: BP 111/69
--- NOTE | 2018-01-07 00:13 | NUR ---
PATIENT CALLED REQUESTING PAIN MEDS AGAIN. ENCOURAGED UISE OF PERCOCET BUT PATIENT STATES THAT HER PAIN IS 10/10 AND SHE NEEDS THE DILAUDID-MEDICATED ORDERED. CONT TO USE ICE PACKS TO RIGHT KNEE ON AND OFF THROUGHOUT THE NIGHT. SCD'S IN PLACE. ENCOURAGED USE OF IS. CALL LIGHT IN REACH. WILL CONT TO MONITOR.
--- NOTE | 2018-01-07 03:12 | NUR ---
APPEARS SLEEPING WITH EYES CLOSED AND O2 VIA NASAL CANNULA IN PLACE. CALL LIGHT IN REACH. WILL CONT TO MONITOR.
[2018-01-07 04:49] VITALS: BP 105/57
--- NOTE | 2018-01-07 05:30 | NUR ---
PATIENT RESTING IN BED-CONT TO USE BEDPAN TO URINATE.C/O SEVERE POST-OP RIGHT KNEE PAIN-10/10 ON PAIN SCALE. MEDICATED WITH PERCOCET 10/325MG PO TABS 2. CONT TO USE ICE TO RIGHT KNEE ON AND OFF THROUGHOUT THE NIGHT. CALL LIGHT IN REACH. WILL CONT. TO MONITOR.
--- NOTE | 2018-01-07 07:00 | NUR ---
CHILDCARE ADMINISTRATOR ANSWERED CALL SINA. PT ON BED TRACY. VOIDED CLEAR YELLOW URINE. ASSISTED BY BEATRIZ PUENTE. PT NOT RECEPTIVE TO GETTING OOB TO VOID, IS USE OR TAKING A SHOWER LATER TODAY.PT PLAN OF CARE FOR TODAY EXPLAINED TO PT. PT VOICES UNDERSTANDING WITH HESITANCY. PT CAN BARELY KEEP HER EYES OPEN WHEN SPEAKING WITH YOU. VS STABLE AT THIS TIME. READIED FOR BREAKFAST. WILL CONTINUE TO MONITOR. CALL SINA IN REACH.
--- NOTE | 2018-01-07 08:10 | NUR ---
PT BARELY ABLE TO KEEP EYES OPEN SHE EATS HER BREAKFAST. AWAKES TO VERBAL STIMULI. ASSESMENT COMPLETED AT THIS TIME (SEE INTERVENTIONS). LUNG SOUNDS CLEAR. HEART SOUNDS REGULAR. SCANT EDEMA NOTED TO RIGHT KNEE. PT COMPLAINING OF PAIN AT A 8. WILL MEDICATE FOR PAIN. CALL ANDINO IN REACH WILL CONTINUE TO MONITOR.
--- NOTE | 2018-01-07 08:15 | NUR ---
DR HEATON IN TO SPEAK WITH PT ON PLAN OF CARE. PT VERBALIZES UNDERSTANDING. WISHES TO GO TO REHAB IN COMSTOCK.
--- NOTE | 2018-01-07 10:00 | NUR ---
THERAPY IN TO SEE PT. UP TO CHAIR WITH MAX ASSISTANCE. PT AGREES TO STAY UP FOR A BIT FOR LUNCH.
--- NOTE | 2018-01-07 10:51 | NUR ---
Pt seen this am for ther ex and gait training. AROM/AAROM ex preformed in sitting and supine. Pt moved supine to sit with SBA of RLE. Sitting on edge of bed without LOB noted. Pt moved sit to stand with min assist and was able to ambulate 8' to commode with CGA/min assist. Pt ambulated to chair x 8' with same assist. She was left in room with SPECIAL DELIVERY WORKER preparing to do am care. Pt was able to flex knee approx 80 degrees.
--- NOTE | 2018-01-07 11:40 | NUR ---
PT REMAINS DROWSY. UNABLE TO HOLD A CONVERSATION WITHOUT FALLING ASLEEP. PT INSTRUCTED TO DRINK MAG CITRATE ORDERED AND USE IS. PT STATES "WE WANT TOO MUCH". INTERIOR MECHANIC INFORMS PT THAT THESE THINGS ARE PERTINENT TO HER HEALING PROCESS.
--- NOTE | 2018-01-07 12:00 | NUR ---
PT UP TO CHAIR TO FOR LUNCH. PT FALLING ASLEEP WITH CHICKEN IN HER HAND. PT AWOKEN TO VERBAL STIMULI. PT MEDICATED PER ORDER. CALL ANDINO IN REACH. WILL CONTINUE TO MONITOR.
--- NOTE | 2018-01-07 12:02 | NUR ---
AM. PT WAS SEEN FOR G.T SHE WAS SEEN RESTING IN THE RECLINER, STATES THAT SHE JUST HAD PAIN MEDS. PT'S ALERTNESS WAS DIMINISHED BUT WAS ABLE TO COMPREHEND AND CONVERSE. SHE STOOD UP FROM THE RECLINER WITH CGA AND CONSTANT VERBAL CUES. SHE THEN REQUESTED TO GO TO THE TOILET. SHE AMB. AT LEAST 10 FT. WITH RW AND CGA TO GET TO THE BATHROOM. VC WAS CONSTANTLY PROVIDED FOR PROPER HAND PLACEMENT AND WB. SHE WAS THEN ASSISTED TO SIT BACK IN THE RECLINER, WITH RW, CGA AND VCS. LEFT PT W/ CALL ANDINO BESIDE HER. NO ADVERSE RXNS NOTED OR REPORTED.
[2018-01-07 12:12] VITALS: BP 110/72
--- NOTE | 2018-01-07 12:42 | NUR ---
PT GIVEN PAIN MEDS PER ORDER. OTHER DAILY MEDS GIVEN AT THIS TIME. PT STATES PAIN IS AN 8. CALL ANDINO IN REACH. WILL CONTINUE TO MONITOR.
--- NOTE | 2018-01-07 14:00 | NUR ---
PT UP TO RR WITH MINIMAL ASSIST. VOIDED CLEAR YELLOW URINE. LIZZY DRAIN EMPTIED 30cc OF SANGUINOUS DRANIGE. PT COMPLAINS OF BURNING WITH URINATION. WILL LET MD KNOW AND COLLECT URINE. PT HAVING LITTLE PAIN BUT DOES NOT WANT A PAIN PILL. CALL ANDINO IN REACH WILL CONTINUE TO MONITOR.
--- NOTE | 2018-01-07 14:00 | NUR ---
PT ON THE PHONE AT THIS. OOB IN THE RECLINER. TOLERATINING MAG CITRATE WELL. REQUESTING TO BE PUT BACK INTO BED. CALL ANDINO IN REACH. WILL CONTINUE TO MONITOR.
--- NOTE | 2018-01-07 14:52 | NUR ---
PT RESTING QUIETLY IN CHAIR. PICC FLUSHED PER PROTOCOL. PHYSICAL THERAPY IN TO ASSIST PT BACK TO BED. PT TOLERATED WELL.
--- NOTE | 2018-01-07 15:12 | NUR ---
PT REQUESTING PAIN MEDS AT THIS TIME. MEDICATED PER ORDER. PT BACK IN BED. CALL ADNINO IN REACH. WILL CONTINUE TO MONITOR.
[2018-01-07 15:54] VITALS: BP 117/72
--- NOTE | 2018-01-07 16:00 | NUR ---
PT RESTING QUIETLY IN BED WITH FAMILY AT BED SIDE. WILL CONTINUE TO MONITOR.
--- NOTE | 2018-01-07 18:03 | NUR ---
PT REQUESTING PAIN MEDS AT THIS TIME. PT STATES "SHE IS NOT GETTING ENOUGH MEDS BECAUSE ITS NOT THE IV ONE". CARLOS CROFT IN TO SPEAK WITH PT.
--- NOTE | 2018-01-07 18:15 | NUR ---
PT CALLED ASKING FOR PAIN MEDICATION EDUCATED REGARDING D/C OF IV DILAUDID THIS AM (PT HAS BEEN TOLD THIS MULTIPLE TIMES THIS SHIFT) ALSO EDUCATED REGARDING LAST MEDICATED FOR PAIN AT 1512 FOR PAIN WTIH 2 PERCOCET 10/325MG TABLETS, AND THAT SHE IS NOT DUE AT THIS TIME, PT ALSO DURING THIS CONVERSATION IS DROWSY AND NODS OFF MULTIPLE TIMES REQUIRING LOUD VERBAL STIMULI TO AROUSE AGAIN. VERBALIZES UNDERSTANDING.
--- NOTE | 2018-01-07 18:41 | NUR ---
PT FALLING ASLEEP WHILE TRYING TO EAT SUPPER. AWOKEN WITH VERBAL STIMULI. DRESSING TO R KNEE REMOVED. INCISION WELL APPROXIMATED, NO DRAINAGE, NO S/S OF INFECTION, DERMA HARRISON INTACT. 1 CM FLUID FILLED BLISTER NOTED TO RIGHT LATERAL LOWER KNEE AREA. INCISION LEFT OPEN TO AIR PER ORDER. PT TOLERATED WELL. PT EDUCATED REGARDING ABOVE INFO.
[2018-01-07 19:00] VITALS: BP 115/74
--- NOTE | 2018-01-07 19:30 | NUR ---
PATIENT RESTING IN BED WITH HOB ELEVATED AND O2 VIA NASAL CANNULA IN PLACE AT 2LPM-APPEARS SLEEPING WITH EYES CLOSED. CALL LIGHT IN REACH. WILL CONT TO MONITOR.
--- NOTE | 2018-01-07 22:00 | NUR ---
PATIENT RESTING IN BED-HS MEDS GIVEN ORDERED. MEDICATED FOR POST-OP RIGHT KNEE PAIN WITH PERCOCET 10/325MG PO TABS 2. PATIENT CONT TO BE DROWSEY MOST OF THE TIME. CALL LIGHT IN REACH. WILL CONT TO MONITOR.
--- NOTE | 2018-01-08 00:38 | NUR ---
APPEARS SLEEPING WITH EYES CLOSED AND HOB ELEVATED. O2 VIA NASAL CANNULA IN PLACE. RESP ARE SHALLOW AND EVEN. CALL LIGHT IN REACH. WILL CONT TO MONITOR.
--- NOTE | 2018-01-08 01:09 | NUR ---
PATIENT ASISSTED OOB TO BSC TO VOID, NO BM YET EVEN AFTER TAKING STOOL SOFTNER AND MOST OF A BOTTLE OF MAG CITRATE. PATIENT ASKING FOR PAIN MEDS BUT TOO EARLY FOR PERCOCET. ASSISTED BACK TO BED AND MEDICATED WITH XANAX FOR ANXIETY. PATIENT WITH SHAKES AT TIMES. RIGHT KNEE INCISION IS MANAN WITH DERMABOND IN PLACE. 1 BLISTER NOTED TO THE MIDDLE OF THE INCISION-STILL FLUID FILLED. SOME SLIGHT SWELLING AND ECCYMOSIS NOTED TO RIGHT KNEE. USING ICE PACK TO RIGHT KNEE ON AND OFF THROUGHOUT THE NIGHT. ENCOURAGED USE OF IS-DEMONSTRATES USE OF THE DEVICE. CALL LIGHT IN REACH. WILL CONT TO MONITOR.
--- NOTE | 2018-01-08 02:10 | NUR ---
PATIENT C/O 01/07 POST-OP RIGHT KNEE PAIN-MEDICATED WITH PERCOCET 10/325MG TABS 2 FOR POST-OP PAIN. CALL LIGHT IN REACH. WILL CONT TO MONITOR.
[2018-01-08 04:00] VITALS: BP 85/50
--- NOTE | 2018-01-08 04:51 | NUR ---
PATIENT APPEARS SLEEPING AT THIS TIME WITH O2 VIA NASAL CANNULA IN PLACE. EYES CLOSED. RESP ARE EVEN AND SHALLOW. CALL LIGHT IN REACH. WILL CONT TO MONITOR.
[2018-01-08 05:40] LABS: HEMATOCRIT 33.6 % (37.0-47.0); HEMOGLOBIN 10.5 g/dl (12.0-16.0); IMMATURE GRANULOCYTES 1.1 % (0.0-5.0); MEAN CELL VOLUME 89.4 fL CALC (80.0-100.0); MEAN CORPUSCULAR HGB 27.9 pG CALC (26.0-32.0); MEAN CORPUSCULAR HGB CONC 31.3 g/L CALC (32.0-36.0); NEUT# 4.42 thou/uL (2.00-7.15); RED BLOOD COUNT 3.76 mill/uL (4.20-5.60); RED CELL DISTRI WIDTH 15.1 % (11.5-15.5)
[2018-01-08 05:49] LABS: ALBUMIN 2.5 g/dL (3.2-5.0); ALKALINE PHOSPHATASE 84 u/l (38-126); ANION GAP 7 (6-22 (CALC)); BILIRUBIN, TOTAL 0.3 mg/dL (0.0-1.4); BUN 14 mg/dL (8-23); BUN/CREATININE RATIO 30 (12-20 (CALC)); CARBON DIOXIDE 35 mmol/l (22-30); CHLORIDE 102 mmol/l (95-108); CREATININE 0.5 mg/dL (0.5-1.0); GFR > 60 ML/MIN (>=60 (CALC)); GFR FOR AFR.AMER. > 60 ML/MIN (>=60 (CALC)); POTASSIUM 4.2 mmol/l (3.5-5.1); SGOT/AST 26 u/l (9-36); SODIUM 140 mmol/l (137-146); TOTAL PROTEIN 5.1 g/dL (6.3-8.2)
--- NOTE | 2018-01-08 07:00 | NUR ---
REPORT RECEIVED FROM GUERDA SUN. PT SITTING UPRIGHT IN BED. SLEEPING. CALL LIGHT WITHIN REACH.
[2018-01-08 07:38] VITALS: BP 151/97
--- NOTE | 2018-01-08 07:40 | NUR ---
PT REPORTS SEVERE PAIN TO RIGHT KNEE. PAIN MEDICATIONS AND SCHEDULE REVIEWED. PERCOCET 2 TABS PO ADMINISTERED. WILL RE-EVAL FOR EFFECTIVENESS. PLAN OF CARE DISCUSSED. REPORTING OF CONCERNS ENCOURAGED. CALL LIGHT REVIEWED AND IN REACH. PT ASSISTED TO CHAIR FOR BREAKFAST W/ STANDBY ASSIST AND WALKER. TOLERATED ACTIVITY WELL. BOWEL SOUNDS HYPOACTIVE. PT DENIES BM SINCE 01/05. PT STATES THIS IS NOT UNCOMMON FOR HER. O2 @ 2L VIA NC. BREATH SOUNDS CLEAR AND DIMINISHED IN BASES.
--- NOTE | 2018-01-08 08:35 | NUR ---
DR. HEATON IN TO SEE PT. BLISTER TO EDGE OF DERMABOND DRESSING ON RIGHT KNEE OPENED AND CX SWABBED BY DR. HEATON. SPECIMEN SENT TO LAB. GAUZE DRESSING APPLIED. PT TOLERATED WELL. NO COMPLAINTS. DISCHARGE TO REHAB WHEN BED AVAILABLE DISCUSSED. PT STATES UNDERSTANDING.
--- NOTE | 2018-01-08 10:09 | NUR ---
Pt seen this am for treatment. She was sitting in chair stated she had been up since 7:30 (920 when seen). She performed supine and sitting ex x 20 reps each. Ambulated 1x 20', 1x25' and then 1'12' with RW and CGA. Pt required min assist to move sit to stand and to assist RLE into bed. Verbal cues to stand tall while ambulating. Knee flex was to 90 degree and ext approx -20 degrees. Pt was cooperative with treatment. Pt left resting in bed with proper positioning, compression on LLE, call ortega/phone and tray in reach. Pt requested ice for her knee and coffee, nursing aware.
--- NOTE | 2018-01-08 11:30 | NUR ---
PT ASSISTED TO RESTROOM AND THEN TO CHAIR AT BEDSIDE FOR LUNCH. STAND BY ASSIST AND WALKER ONLY NEEDED. PT TOLERATED ACTIVITY WELL.
--- NOTE | 2018-01-08 14:37 | NUR ---
Pt seen this pm for bed exercise. She was with family member and they reported she had gotten out of bed before lunch and just return to bed before therapist got there. She stated she had use walker and went into BR and then got into bed. Therapeutic ex and expections for rehab discussed with pt.
[2018-01-08 16:06] VITALS: BP 119/70
--- NOTE | 2018-01-08 17:00 | NUR ---
FENTANYL PATCH X 2 TO LEFT SIDE OF CHEST REMOVED. PATCHES SENT TO PHARMACY, RETRIEVED BY DAMIÁN. NEW PATCHES X 2 APPLIED TO RIGHT SIDE OF CHEST. PERCOCET PO 2 TABS ADMINISTERED FOR ACUTE RIGHT KNEE PAIN. ICE PACK APPLIED.
[2018-01-08 19:00] VITALS: BP 103/63
--- NOTE | 2018-01-08 19:15 | NUR ---
BEDSIDE REPORT RECEIVED FROM DAY NURSE, PT IS IN HIGH FOWLERS POSITION WATCHING TV W/LIGHTS ON. I.S. IS AT BEDSIDE W/IN REACH, SCD IS ON UNAFFECTED LEFT LEG. ICE PACK APPLIED TO RIGHT KNEE. PT IS LOCX3 AND DENIES ANY NEEDS AT THIS TIME. SHE HAS BEEN ENCOURAGED TO CALL IF ANY NEEDS ARISE AND CALL LIGHT IS IN HAND.
--- NOTE | 2018-01-08 21:50 | NUR ---
PT ASSISTED TO AMBULATED TO RESTROOM USING WALKER AND 1X STANDBY ASSIST, PT AMBULATED VERY WELL WITH MINIMAL ASSISTANCE. PT ASSISTED BACK INTO BED AND POSITIONED FOR COMFORT. PT MEDICATED FOR PAIN REPORTED 10/10 AND PM MEDICATIONS ORDERED. PT REMINDED OF IS USE AND ICE PACK APPLIED AGAIN TO RIGHT KNEE. POSITIONING OF KNEE FOR STRAIGHTENING DISCUSSED W/PT, SHE IS WANTING TO PLACE PILLOW UNDER KNEE TO KEEP IT SLIGHTLY BENT. I ASSISTED POSITIONING WITH PILLOW UNDER FOOT TO COMFORTABLY MAINTAIN THE KNEE STRAIGHT. PT REPORTS COMFORT WITH THIS POSITION.
--- NOTE | 2018-01-09 03:04 | NUR ---
PT MEDICATED FOR PAIN 01/07. PT IS WATCHING TV AND TALKATIVE. KNEE ICED W/ICE PACK. PT DENIES ANY OTHER NEEDS. INCISION APPEARS HEALTHY AND DERMABOND IS INTACT. DRESSING TO DISTAL INCISION CDI.
[2018-01-09 04:26] VITALS: BP 84/55
--- NOTE | 2018-01-09 04:30 | NUR ---
AIDE REPORTED PT BP LOW@84/55. PT WAS SLEEPING SOUNDLY, SHE DENIES DIZZINESS BUT REPORTS "FEELING SLEEPY." I ASSISTED HER IN SELF POSITIONING IN BED, OBSERVED USE OF IS AND HAD HER DRINK ICE WATER AND SOME GRAPE JUICE/PT PREFERENCE. MANUAL BP ASSESSED FOLLOWING 95/65,HR 92. WILL CONTINUE TO MONITOR.
[2018-01-09 04:34] VITALS: BP 95/65
[2018-01-09 05:40] LABS: HEMATOCRIT 32.8 % (37.0-47.0); HEMOGLOBIN 10.3 g/dl (12.0-16.0); IMMATURE GRANULOCYTES 0.4 % (0.0-5.0); MEAN CELL VOLUME 89.1 fL CALC (80.0-100.0); MEAN CORPUSCULAR HGB CONC 31.4 g/L CALC (32.0-36.0); NEUT# 2.79 thou/uL (2.00-7.15); RED BLOOD COUNT 3.68 mill/uL (4.20-5.60); RED CELL DISTRI WIDTH 15.3 % (11.5-15.5)
[2018-01-09 05:59] LABS: ALBUMIN 2.6 g/dL (3.2-5.0); ALKALINE PHOSPHATASE 74 u/l (38-126); ANION GAP 6 (6-22 (CALC)); BILIRUBIN, TOTAL 0.3 mg/dL (0.0-1.4); BUN 14 mg/dL (8-23); BUN/CREATININE RATIO 22 (12-20 (CALC)); CARBON DIOXIDE 37 mmol/l (22-30); CHLORIDE 101 mmol/l (95-108); CREATININE 0.6 mg/dL (0.5-1.0); GFR > 60 ML/MIN (>=60 (CALC)); GFR FOR AFR.AMER. > 60 ML/MIN (>=60 (CALC)); SGOT/AST 20 u/l (9-36); SODIUM 141 mmol/l (137-146); TOTAL PROTEIN 5.1 g/dL (6.3-8.2)
--- NOTE | 2018-01-09 07:48 | NUR ---
PT ASSISTED TO BATHROOM WITH WALKER AND STREAM CONTROL OFFICER STAND BY. PT AMBULATED VERY WELL. PT WAS ASKED IF SHE WOULD LIKE TO GET UP TO THE CHAIR FOR BREAKFAST. PT STATED" NO THEY KEPT ME UP ALL NIGHT WITH CHECKING MY BLOOD PRESSURE AND IM COLD I WOULD JUST LIKE TO GO BACK TO BED. PT PLACED BACK IN BED. BREAKFAST TRAY IN FRONT OF PT. NO COMPLAINTS AT THIS TIME. CALL ANDINO IN REACH.
[2018-01-09 08:00] VITALS: BP 101/58
[2018-01-09] MEDS ORDERED: PERCOCET 5/321 COMBO PO (08:31)
[2018-01-09] MEDS ORDERED: ALPRAZOLAM0.5 MG PO (08:31)
[2018-01-09] MEDS ORDERED: FENTANYL25 MCG/HR TD (08:31)
--- NOTE | 2018-01-09 09:01 | NUR ---
PT AMBULATING HALLWAY WITH WALKER ASSISTED BY PHYSICAL THERAPIST. CONTINUE TO MONITOR.
--- NOTE | 2018-01-09 13:17 | NUR ---
PT MEDICATED FOR PAIN, NO SIGNS OF DISTRESS NOTED, RESP EVEN AND UNLABORED. CALL LIGHT IN REACH,CONTINUE TO MONITOR.
--- NOTE | 2018-01-09 14:13 | NUR ---
The pt. was found resting in bed and agreeable to participate in therapeutic exercises in bed. Pt. performed AAROM ankle PF/DF, AAROM knee flexion/extension and AAROM hip abduction to the R LE 2x10 repetitions with continual verbal encouragement. Pt. refuses ambulation as she is awaiting transfer to facility. The pt. was left resting comfortably in bed without questions or concerns. Call light and bedside table left within reach. Nurse informed of same.
--- NOTE | 2018-01-09 16:33 | NUR ---
Discharge instructions given. Patient verbalizes understanding of same. Discharged in stable condition [facility] with *Other. All belongings sent with pt.
--- NOTE | 2018-01-09 16:36 | NUR ---
AM TX. PT WAS SEEN RESTING ON BED WITH NRSNG ON BEDSIDE PERFORMING DRESSING CHANGE. PT THEN AGREED TO PARTICIPATE WITH PT. MOD. INDEP. GETTING OOB WITH THE USE OF B UE IN SLIDING AND SCOOTING SELF ON EOB. PT THEN DID SIT TO STAND WITH SBA, CGA AND VERBAL CUES ON HAND PLACEMENT. SHE THEN STARTED AMBULATING FROM BED TO THE END OF THE ROOM THEN ACROSS THE OTHER ROOM ~30 FT. X 2. THIS WAS THE FARTHEST DISTANCE PT HAD WALKED SINCE SHE WAS ADMITTED. PT DID NOT HAVE ANY COMPLAINTS DURING AND AFTER AMB. SHE WENT BACK IN THE ROOM AND SAT IN THE RECLINER WITH RW, CGA AND VERBAL CUES FOR FALL PREVENTION. NOTED IMPROVEMENT ON STABILITY, BALANCE AND GAIT PATTERN. NO ADVERSE RXNS NOTED OR REPORTED AT THE END OF TX.
== END 2018-01-09 16:10 | DRG 470 ==
LOC: MS2 01-05 05:56
PROVIDERS: ADMIT Orthopaedic Surgery; ATTEND Internal Medicine Geriatric Medicine
PROC: 0SRC0J9 Replacement of Right Knee Joint with Synthetic Substitute, Cemented, Open Approach (ICD-10-PCS; principal; 2018-01-05)
PROC: 3E0T3BZ Introduction of Anesthetic Agent into Peripheral Nerves and Plexi, Percutaneous Approach (ICD-10-PCS; 2018-01-05)
PROC: 05HY33Z Insertion of Infusion Device into Upper Vein, Percutaneous Approach (ICD-10-PCS; 2018-01-06)
PROC: B51NZZA Fluoroscopy of Left Upper Extremity Veins, Guidance (ICD-10-PCS; 2018-01-06)
DX: M17.11 Unilateral primary osteoarthritis, right knee (principal); Z68.41 Body mass index [BMI] 40.0-44.9, adult; F11.20 Opioid dependence, uncomplicated; D64.9 Anemia, unspecified; I10 Essential (primary) hypertension; I25.10 Atherosclerotic heart disease of native coronary artery without angina pectoris; E03.9 Hypothyroidism, unspecified; E78.5 Hyperlipidemia, unspecified; J44.9 Chronic obstructive pulmonary disease, unspecified; K21.9 Gastro-esophageal reflux disease without esophagitis; M54.5 Low back pain; G89.29 Other chronic pain; G47.30 Sleep apnea, unspecified; Z96.652 Presence of left artificial knee joint; Z87.11 Personal history of peptic ulcer disease; Z98.84 Bariatric surgery status; I48.0 Paroxysmal atrial fibrillation; E66.01 Morbid (severe) obesity due to excess calories; Z91.19 Patient's noncompliance with other medical treatment and regimen

== ENCOUNTER → 2018-01-01 | Outpatient (REF) | payer MEDICARE ==
[~2018-01-01] VITALS: Ht 157.5 cm; Wt 99.8 kg
[~2018-01-01] MED LIST changes: +ALPRAZOLAM0.5 MG PO; +DITROPAN5 MG/TA1 PO; +PERCOCET 5/321 COMBO PO; +TIZANIDINE4 MG PO
[2018-01-01 10:36] VITALS: BP 99/49
[2018-01-01 11:33] LABS: HEMOGLOBIN 12.8 g/dl (12.0-16.0); IMMATURE GRANULOCYTES 0.3 % (0.0-5.0); MEAN CELL VOLUME 88.6 fL CALC (80.0-100.0); MEAN CORPUSCULAR HGB 27.6 pG CALC (26.0-32.0); MEAN CORPUSCULAR HGB CONC 31.2 g/L CALC (32.0-36.0); NEUT# 3.86 thou/uL (2.00-7.15); RED BLOOD COUNT 4.63 mill/uL (4.20-5.60); RED CELL DISTRI WIDTH 15.2 % (11.5-15.5)
[2018-01-01 11:56] LABS: ALBUMIN 3.1 g/dL (3.2-5.0); ALKALINE PHOSPHATASE 97 u/l (38-126); ANION GAP 9 (6-22 (CALC)); BILIRUBIN, TOTAL 0.4 mg/dL (0.0-1.4); BUN 15 mg/dL (8-23); BUN/CREATININE RATIO 21 (12-20 (CALC)); CARBON DIOXIDE 35 mmol/l (22-30); CHLORIDE 103 mmol/l (95-108); CREATININE 0.7 mg/dL (0.5-1.0); GFR > 60 ML/MIN (>=60 (CALC)); GFR FOR AFR.AMER. > 60 ML/MIN (>=60 (CALC)); POTASSIUM 4.3 mmol/l (3.5-5.1); SGOT/AST 19 u/l (9-36); SODIUM 142 mmol/l (137-146); TOTAL PROTEIN 6.1 g/dL (6.3-8.2)
[2018-01-01 11:57] LABS: ACT PARTIAL THROMBO TIME 28.2 SECONDS (20.0-32.5); PROTHROMBIN TIME 10.5 SECONDS (9.0-12.5)
== END | disposition home or self-care (01) ==
LOC: ORM 09:30 → PO 09:38
PROVIDERS: ATTEND Orthopaedic Surgery
DX: Z01.818 Encounter for other preprocedural examination (principal); M17.11 Unilateral primary osteoarthritis, right knee; F33.8 Other recurrent depressive disorders; M54.30 Sciatica, unspecified side; M54.5 Low back pain; I50.9 Heart failure, unspecified; E66.01 Morbid (severe) obesity due to excess calories; Z98.84 Bariatric surgery status; J44.9 Chronic obstructive pulmonary disease, unspecified; I25.10 Atherosclerotic heart disease of native coronary artery without angina pectoris; I73.9 Peripheral vascular disease, unspecified; K21.9 Gastro-esophageal reflux disease without esophagitis; Z87.440 Personal history of urinary (tract) infections; Z95.818 Presence of other cardiac implants and grafts; Z86.2 Personal history of diseases of the blood and blood-forming organs and certain disorders involving the immune mechanism; Z96.652 Presence of left artificial knee joint; Z98.890 Other specified postprocedural states; Z97.2 Presence of dental prosthetic device (complete) (partial)

== ENCOUNTER 2018-06-23 10:21 | Observation (INO) | payer MEDICARE ==
[~2018-06-23] VITALS: Ht 157.5 cm; Wt 97.0 kg
[~2018-06-23 10:21] MED LIST changes: +ALPRAZOLAM0.5 MG PO; +PERCOCET 5/321 COMBO PO; +PRILOSEC20 MG PO; -omeprazole PO
--- NOTE | 2018-06-23 10:30 | NUR ---
PT TO ROOM VIA WC ACCOMPANIED BY VOLUNTEER; MODERATE ASSIST TO BED; PT A/O X4; NO COMPLAINTS OF PAIN OR DISCOMFORT; PT C/O SOB AND PRODUCTIVE COUGH X2 WEEKS. O2 2L VIA NC, LUNG SOUNDS CRACKLES IN THE BASES; PT ORIENTED TO ROOM AND CALL SYSTEM; VS AND WT OBTAINED; CALL ANDINO WITHIN REACH; WILL CONTINUE TO MONITOR.
[2018-06-23 11:10] VITALS: BP 103/62
[2018-06-23 12:09] LABS: ANION GAP 14 (6-22 (CALC)); BUN 15 mg/dL (8-23); BUN/CREATININE RATIO 21 (12-20 (CALC)); CARBON DIOXIDE 28 mmol/l (22-30); CHLORIDE 101 mmol/l (95-108); CREATININE 0.7 mg/dL (0.5-1.0); GFR > 60 ML/MIN (>=60 (CALC)); GFR FOR AFR.AMER. > 60 ML/MIN (>=60 (CALC)); POTASSIUM 3.5 mmol/l (3.5-5.1); SODIUM 139 mmol/l (137-146)
[2018-06-23 12:35] LABS: URINE BILIRUBIN - DIPSTICK NEGATIVE (NEGATIVE); URINE BLOOD DIPSTICK NEGATIVE (NEGATIVE); URINE COLOR YELLOW; URINE GLUCOSE - DIPSTICK NEGATIVE (NEGATIVE); URINE KETONE NEGATIVE (NEGATIVE); URINE LEUK ESTERASE SMALL (Negative); URINE NITRITE - DIPSTICK POSITIVE (Negative); URINE PROTEIN - DIPSTICK NEGATIVE (NEG-TRACE); URINE UROBILINOGEN - DIPSTICK 0.2 E.U./dL (0.2)
[2018-06-23 12:39] LABS: URINE CLARITY CLOUDY
[2018-06-23 12:43] LABS: URINE BACTERIA MANY hpf; URINE EPITHELIAL CELLS FEW EPI/hpf (0-FEW)
[2018-06-23 14:24] LABS: HEMATOCRIT 41.7 % (37.0-47.0); HEMOGLOBIN 12.6 g/dl (12.0-16.0); IMMATURE GRANULOCYTES 0.3 % (0.0-5.0); MEAN CELL VOLUME 88.9 fL CALC (80.0-100.0); MEAN CORPUSCULAR HGB 26.9 pG CALC (26.0-32.0); MEAN CORPUSCULAR HGB CONC 30.2 g/L CALC (32.0-36.0); NEUT# 8.63 thou/uL (2.00-7.15); RED BLOOD COUNT 4.69 mill/uL (4.20-5.60); RED CELL DISTRI WIDTH 17.5 % (11.5-15.5)
[2018-06-23 15:25] VITALS: BP 91/55
[2018-06-23] MEDS ORDERED: MELOXICAM15 MG PO (15:31)
--- NOTE | 2018-06-23 16:00 | NUR ---
RESTING IN BED, ALL NEEDS ADDRESSED, WILL CONTINUE TO MONITOR.
[2018-06-23 19:00] VITALS: BP 107/64
--- NOTE | 2018-06-23 19:00 | NUR ---
PT RESTING IN BED WATCHING TV. NO NEEDS AT THIS TIME. CALL ANDINO IN REACH. WILL CONTINUE TO MONITOR.
--- NOTE | 2018-06-23 22:07 | NUR ---
PT WATCHING TV AT THIS TIME. PT IS A&0 x3. ASSESMENT COMPLETED AT THIS TIME. BRUSING NOTED TO LEFT THIGH FROM 2 WEEKS AGO AND SCABBED AREA FROM FALL 2 DAYS AGO. PT INFORMED TO CALL TO NURSING STAFF TO USE THE RESTROOM FOR HER SAFETY. PT VERBALIZES UNDERSTANDING. NO OTHER NEEDS AT THIS TIME. CALL ANDINO IN REACH. WILL CONTINUE TO MONITOR.
--- NOTE | 2018-06-24 00:43 | NUR ---
PT C/O OF GENERALIZED PAIN 11/07 STATES IT HURTS FROM THE BOTTOM OF HER FEET TO THE TOP OF HER HEAD. NO OTHER NEEDS AT THIS TIME. CALL ANDINO IN REACH. WILL CONTINUE TO MONITOR.
--- NOTE | 2018-06-24 04:00 | NUR ---
PT RESTING IN BED WITH EYES CLOSED. O2 @ 3L. RESP EVEN AND UNLABORED. CALL ANDINO IN REACH. WILL CONTINUE TO MONITOR.
[2018-06-24 04:24] VITALS: BP 94/54
[2018-06-24 06:19] LABS: ALKALINE PHOSPHATASE 88 u/l (38-126); ANION GAP 9 (6-22 (CALC)); BILIRUBIN, TOTAL 0.2 mg/dL (0.0-1.4); BUN 13 mg/dL (8-23); BUN/CREATININE RATIO 23 (12-20 (CALC)); CARBON DIOXIDE 31 mmol/l (22-30); CHLORIDE 102 mmol/l (95-108); CREATININE 0.6 mg/dL (0.5-1.0); GFR > 60 ML/MIN (>=60 (CALC)); GFR FOR AFR.AMER. > 60 ML/MIN (>=60 (CALC)); POTASSIUM 3.6 mmol/l (3.5-5.1); SGOT/AST 16 u/l (9-36); SODIUM 139 mmol/l (137-146)
[2018-06-24 06:20] LABS: TOTAL PROTEIN 5.1 g/dL (6.3-8.2)
[2018-06-24 06:21] LABS: ALBUMIN 2.5 g/dL (3.2-5.0)
--- NOTE | 2018-06-24 08:21 | NUR ---
SHIFT CHANGE REPORT, PT SLEEPING BUT AROUSES TO VERBAL STIMULI, O2 @ 3L VIA NC IN PLACE, NO C/O DISCOMFORT AT THIS TIME, CALL ANDINO IN REACH.
[2018-06-24 09:45] VITALS: BP 109/49
[2018-06-24 17:29] VITALS: BP 116/67
--- NOTE | 2018-06-24 17:56 | NUR ---
PT AND SPOUSE NQUIRING ABOUT HOME MEDS SINCE THIS AM, DR HEATON NOTIFIED OF CONCERNS AND REMINDED PHARMACY DOES NOT ACCEPT "HOME MEDS BEFORE", PHARMACY ALSO NOTIFIED OF HOME MEDS AND PT & SPOUSE REQUEST, STILL AWAITING PROFILING OF MEDS AT THIS TIME.
--- NOTE | 2018-06-24 17:59 | NUR ---
DR HEATON CONTACTED IN ICU, INFORMED OF NEED TO PROFILE MEDS AND ADDRESSED CONCERN.
[2018-06-24 18:55] VITALS: BP 119/60
--- NOTE | 2018-06-24 19:20 | NUR ---
REPORT FROM JOLANTA CROFT. PT RESTING IN BED. NO DISTRESS NOTED. IV SITE APPEARS HEALTHY WITH IV FLUIDS INFUSING. PT C/O GENERALIZED PAIN. WILL MEDICATED ORDERED. RESPIRATIONS EVEN AND UNLABORED 02 @ 3L/M VIA NC. DISCUSSED POC. PT VERBALIZED UNDERSTANDING. CALL LIGHT WITHIN REACH. WILL CONTINUE TO MONITOR.
--- NOTE | 2018-06-24 23:45 | NUR ---
PT RESTING IN BED WITH EYES CLOSED. NO DISTRESS NOTED. CALL LIGHT WITHIN REACH. WILL CONTINUE TO MONITOR.
--- NOTE | 2018-06-25 03:54 | NUR ---
PT RESTING IN BED WITH EYES CLOSED SNORING. NO S/S OF DISTRESS NOTED. CALL LIGHT WITHIN REACH. WILL CONTINUE TO MONITOR.
[2018-06-25 04:15] VITALS: BP 96/53
[2018-06-25 05:02] LABS: HEMOGLOBIN 10.8 g/dl (12.0-16.0); IMMATURE GRANULOCYTES 0.4 % (0.0-5.0); MEAN CELL VOLUME 87.9 fL CALC (80.0-100.0); MEAN CORPUSCULAR HGB 26.7 pG CALC (26.0-32.0); MEAN CORPUSCULAR HGB CONC 30.4 g/L CALC (32.0-36.0); NEUT# 3.39 thou/uL (2.00-7.15); RED BLOOD COUNT 4.04 mill/uL (4.20-5.60); RED CELL DISTRI WIDTH 17.5 % (11.5-15.5)
[2018-06-25 05:06] LABS: HEMATOCRIT 35.5 % (37.0-47.0)
[2018-06-25 05:19] LABS: ALBUMIN 2.6 g/dL (3.2-5.0); ALKALINE PHOSPHATASE 85 u/l (38-126); ANION GAP 9 (6-22 (CALC)); BILIRUBIN, TOTAL 0.3 mg/dL (0.0-1.4); BUN 9 mg/dL (8-23); BUN/CREATININE RATIO 17 (12-20 (CALC)); CARBON DIOXIDE 31 mmol/l (22-30); CHLORIDE 104 mmol/l (95-108); CREATININE 0.6 mg/dL (0.5-1.0); GFR > 60 ML/MIN (>=60 (CALC)); GFR FOR AFR.AMER. > 60 ML/MIN (>=60 (CALC)); POTASSIUM 3.6 mmol/l (3.5-5.1); SGOT/AST 14 u/l (9-36); SODIUM 141 mmol/l (137-146); TOTAL PROTEIN 5.3 g/dL (6.3-8.2)
[2018-06-25 07:30] VITALS: BP 98/63
--- NOTE | 2018-06-25 08:40 | NUR ---
DR. HEATON AT BEDSIDE TO DISCUSS POC WITH PT. PT IS ALERT BUT DORWSY. PT DENIES ANY PAIN AT THIS TIME. #22 RW THAT APPEARS HEALTHY. SAFETY PRECAUTIONS REINFORCED AND CALL LIGHT IN REACH.
--- NOTE | 2018-06-25 11:41 | NUR ---
PT IS SITTING IN RECLINER. PT DENIES ANY PAIN AT THIS TIME OR NEEDS. CALL LIGHT IN REACH.
--- NOTE | 2018-06-25 15:51 | NUR ---
PT IS SITTING IN RECLINER WITH NO S/S OF DISTRESS NOTED. PT DENIES ANY NEEDS AT THIS TIME. CALL LIGHT IN REACH.
[2018-06-25 16:21] VITALS: BP 111/66
--- NOTE | 2018-06-25 19:45 | NUR ---
PT RESTING IN BED, NO SIGNS OF DISTRESS NOTED, RESP EVEN AND UNLABORED. PT ALERT AND ORIENTED X3. PT HAS A FENTANYL PATCH TO R CHEST. DISCUSSED POC. MEDICATED PER MAR. ASSESSMENT COMPLETED. CALL LIGHT IN REACH,CONTINUE TO MONITOR.
[2018-06-25 20:15] VITALS: BP 106/69
--- NOTE | 2018-06-25 21:48 | NUR ---
PT RESTING IN BED, REQUESTING SLEEPING PILL, PT MEDICATED PER MAY. CALL LIGHT IN REACH,CONTINUE TO MONITOR.
--- NOTE | 2018-06-26 00:11 | NUR ---
PT RESTING IN BED WITH EYES CLOSED, NO SIGNS OF DISTRESS NOTED, RESP EVEN AND UNLABORED. CALL LIGHT IN REACH,CONTINUE TO MONITOR.
--- NOTE | 2018-06-26 02:39 | NUR ---
PT RESTING IN BED, C/O PAIN, MEDICATED PER MAY. CALL LIGHT IN REACH,CONTINUE TO MONITOR.
[2018-06-26 04:00] VITALS: BP 94/62
[2018-06-26 05:12] LABS: HEMATOCRIT 33.7 % (37.0-47.0); HEMOGLOBIN 10.3 g/dl (12.0-16.0); IMMATURE GRANULOCYTES 0.2 % (0.0-5.0); MEAN CORPUSCULAR HGB 26.9 pG CALC (26.0-32.0); MEAN CORPUSCULAR HGB CONC 30.6 g/L CALC (32.0-36.0); NEUT# 2.78 thou/uL (2.00-7.15); RED BLOOD COUNT 3.83 mill/uL (4.20-5.60); RED CELL DISTRI WIDTH 17.6 % (11.5-15.5)
--- NOTE | 2018-06-26 05:13 | NUR ---
PATIENT STATED WHEN FULLY AWAKE WILL ACCEPT THE CPT.
[2018-06-26 05:34] LABS: ANION GAP 8 (6-22 (CALC)); BUN 11 mg/dL (8-23); BUN/CREATININE RATIO 17 (12-20 (CALC)); CARBON DIOXIDE 31 mmol/l (22-30); CHLORIDE 104 mmol/l (95-108); CREATININE 0.7 mg/dL (0.5-1.0); GFR > 60 ML/MIN (>=60 (CALC)); GFR FOR AFR.AMER. > 60 ML/MIN (>=60 (CALC)); POTASSIUM 3.8 mmol/l (3.5-5.1); SODIUM 139 mmol/l (137-146)
[2018-06-26 07:33] VITALS: BP 102/59
--- NOTE | 2018-06-26 08:09 | NUR ---
ASSESSMENT DONE. PT IS A&O X3. PT STATED PAIN IN BACK 5/10 BUT DENIES ANY PAIN MEDICATION AT THIS TIME. #22 RW THAT APPEARS HEALTHY. SAFETY PRECAUTIONS REINFORCED AND CALL LIGHT IN REACH.
[2018-06-26] MEDS ORDERED: LEVAQUIN750 MG PO (08:43)
--- NOTE | 2018-06-26 10:29 | NUR ---
Attempted treatment x 2 this am, 1st time eating, now leaving floor for X ray.
--- NOTE | 2018-06-26 11:38 | NUR ---
PT IS SITTING IN RECLINER. PT DENIES ANY NEEDS AT THIS TIME. CALL LIGHT IN REACH.
--- NOTE | 2018-06-26 12:53 | NUR ---
DR. HEATON CALLED STATED LATER FOR DC FOR PT.
--- NOTE | 2018-06-26 13:07 | NUR ---
CHEST PT DONE ON PT WHILE SITTING IN CHAIR. 6 FLAQUITA
[2018-06-26 15:10] VITALS: BP 95/50
--- NOTE | 2018-06-26 15:24 | NUR ---
PT IS DROWSY. PT STATED SHE IS SLEEPY THAT SHE WOKE UP EARLY TODAY. PT DENIES ANY NEEDS AT THIS TIME. CALL LIGHT IN REACH.
--- NOTE | 2018-06-26 16:14 | NUR ---
PT AMBULATED IN THE HALLWAY WITH SLOW AND STEADY GAIT USING THE THE WALKER. I MANOMETER TECHNICIAN BY HER SIDE.
--- NOTE | 2018-06-26 16:51 | NUR ---
DR. HEATON CALLED. STATED PT WILL BE DC TOMORROW.
--- NOTE | 2018-06-26 19:40 | NUR ---
PT IS IN LOW FOWLERS POSITION W/LIGHTS LOW AND TV ON. SHE IS WATCHING TV. DENIES ANY PAIN OR NEEDS AT THIS TIME. POC AND MED SCHEDULE DISCUSSED AT THIS TIME. CALL LIGHT AT BEDSIDE.
[2018-06-26 20:24] VITALS: BP 123/80
--- NOTE | 2018-06-26 23:50 | NUR ---
PT APPEARS TO BE SLEEPING AT THIS TIME. NO S/O DISTRESS NOTED. CALL LIGHT AT BEDSIDE.
--- NOTE | 2018-06-27 01:02 | NUR ---
PT MEDICATED FOR ANXIETY PER REQUEST. PT IN LOW FOWLERS PSOITIONS WATCHING TV W/LIGHTS OUT. NO S/O DISTRESS. GRAPEJUICE PROVIDED PER REQUEST.
--- NOTE | 2018-06-27 03:00 | NUR ---
PT APPEARS TO BE SLEEPING, NO S/O DISTRESS NOTED. LIGHTS OFF, TV ON LOW AND CALL LIGHT AT SIDE.
--- NOTE | 2018-06-27 04:00 | NUR ---
PT CALLED TO REPORT FEELING SOB, 02 IS OFF/PT ASSISTED IN REPLACING 02NC. AIDE IS IN OBTAINING V/S, PT IS SITTING ON SIDE OF THE BED/ENCOURAGED TO DEEP BREATHE THROUGH NOSE. RESPIRATORY CALLED FOR BREATHING TREATMENT.
--- NOTE | 2018-06-27 04:15 | NUR ---
RESPIRATORY IN W/PT.
[2018-06-27 04:36] VITALS: BP 143/92
--- NOTE | 2018-06-27 04:53 | NUR ---
PT APPEARS TO BE SLEEPING AT THIS TIME, NO S/O DISTRESS. 02NC IS ON.
--- NOTE | 2018-06-27 06:51 | NUR ---
REPORT RECEIVED FROM GUERDA SHAW; PT APPEARS TO BE SLEEPING WITH EYES CLOSED; RESP EVEN AND UNLABORED; CALL ANDINO IN REACH; WILL CONTINUE TO MONITOR.
[2018-06-27 08:16] VITALS: BP 111/74
[2018-06-27] MEDS ORDERED: POLYSPORIN3.5 GM IO (09:16)
--- NOTE | 2018-06-27 10:58 | NUR ---
D/C INSTRUCTIONS GIVEN TO PT; PHARMACY SOCIALLY RESPONSIBLE INVESTMENT ADVISER; PT COMING TO HOME; FOLLOW UP WITH DR HEATON; VERBALIZE UNDERSTANDING; IV REMOVED, CATH INTACT; WAITING FOR HER RIDE;
--- NOTE | 2018-06-27 11:53 | NUR ---
Discharge instructions given. Patient verbalizes understanding of same. Discharged in stable condition via Wheelchair to Home with spouse. All belongings sent with pt.
== END 2018-06-27 11:53 | disposition home health service (06) ==
LOC: MS2 10:21
PROVIDERS: ADMIT Internal Medicine Geriatric Medicine; ATTEND Internal Medicine Geriatric Medicine
DX: G89.29 Other chronic pain (principal); M06.9 Rheumatoid arthritis, unspecified; M24.50 Contracture, unspecified joint; J96.10 Chronic respiratory failure, unspecified whether with hypoxia or hypercapnia; F11.20 Opioid dependence, uncomplicated; E66.01 Morbid (severe) obesity due to excess calories; G47.30 Sleep apnea, unspecified; I25.10 Atherosclerotic heart disease of native coronary artery without angina pectoris; D50.9 Iron deficiency anemia, unspecified; I48.0 Paroxysmal atrial fibrillation; E03.9 Hypothyroidism, unspecified; I11.0 Hypertensive heart disease with heart failure; I50.32 Chronic diastolic (congestive) heart failure; Z68.39 Body mass index [BMI] 39.0-39.9, adult; Z91.81 History of falling; Z96.653 Presence of artificial knee joint, bilateral; Z91.19 Patient's noncompliance with other medical treatment and regimen; R06.02 Shortness of breath

== ENCOUNTER 2018-09-22 16:53 | Emergency (ER) | payer MEDICARE ==
[~2018-09-22] VITALS: Ht 157.5 cm; Wt 90.9 kg
[~2018-09-22 16:53] MED LIST changes: +MELOXICAM15 MG PO; +POLYSPORIN3.5 GM IO
[2018-09-22 19:52] VITALS: BP 103/59
== END 2018-09-22 19:53 | disposition home or self-care (01) ==
LOC: ED 16:53
DX: Z04.3 Encounter for examination and observation following other accident (principal); W01.0XXA Fall on same level from slipping, tripping and stumbling without subsequent striking against object, initial encounter; Y93.01 Activity, walking, marching and hiking; Y92.531 Health care provider office as the place of occurrence of the external cause

== ENCOUNTER 2018-11-28 15:35 | Inpatient (IN) | payer MEDICARE ==
[~2018-11-28] VITALS: Ht 157.5 cm; Wt 94.0 kg
--- NOTE | 2018-11-28 15:40 | NUR ---
PT SA02 85 % IN TRIAGE. PT TAKEN DIRECTLY TO ROOM 10 AND MD AWARE OF PT STATUS.
--- NOTE | 2018-11-28 16:15 | NUR ---
PATIENT REPORTS NON SYNCOPAL FALL X2 DAYS AGO WHILE ON THE TOILET. FELL ONTO LEFT SIDE HITTING LEFT RIBS ON BATHTUB. PATIENT NOTED TO HAVE ECCHYMOSIS AND PAIN TO LEFT RIBS AND LEFT HIP. ECCHYMOSIS NOTED UNDER LEFT EYE, STATES FALLING WEEKS AGO. IS ALERT AND ORIENTED X4, LUNG SOUNDS CLEAR BILATERALLY. REPORTS BEING ON HOME O2 WHEN NEEDED UPTO 4L/MIN. PATIENT PLACED ON 2L/MIN OF O2 VIA NASAL CANNULA FOR O2 SAT OF 86%, O2 SAT 92% ON 2L OF O2.
[2018-11-28 16:33] LABS: HEMATOCRIT 38.8 % (37.0-47.0); HEMOGLOBIN 11.9 g/dl (12.0-16.0); IMMATURE GRANULOCYTES 0.5 % (0.0-5.0); MEAN CORPUSCULAR HGB 26.7 pG CALC (26.0-32.0); MEAN CORPUSCULAR HGB CONC 30.7 g/L CALC (32.0-36.0); NEUT# 12.49 thou/uL (2.00-7.15); RED BLOOD COUNT 4.46 mill/uL (4.20-5.60); RED CELL DISTRI WIDTH 16.6 % (11.5-15.5)
[2018-11-28 16:39] LABS: ALBUMIN 3.4 g/dL (3.2-5.0); ALKALINE PHOSPHATASE 110 u/l (38-126); ANION GAP 10 (6-22 (CALC)); BILIRUBIN, TOTAL 0.6 mg/dL (0.0-1.4); BUN 14 mg/dL (8-23); BUN/CREATININE RATIO 17 (12-20 (CALC)); CARBON DIOXIDE 32 mmol/l (22-30); CHLORIDE 103 mmol/l (95-108); CREATININE 0.8 mg/dL (0.5-1.0); ETHYL ALCOHOL 0 mg/dl (0-30); GFR > 60 ML/MIN (>=60 (CALC)); GFR FOR AFR.AMER. > 60 ML/MIN (>=60 (CALC)); LIPASE 13 u/l (23-300); POTASSIUM 4.3 mmol/l (3.5-5.1); SGOT/AST 37 u/l (9-36); SODIUM 140 mmol/l (137-146); TOTAL PROTEIN 6.6 g/dL (6.3-8.2)
--- NOTE | 2018-11-28 16:45 | NUR ---
LUNG SOUNDS CLEAR BILATERALLY AFTER BREATHING TREATMENT.
[2018-11-28 16:53] LABS: ACT PARTIAL THROMBO TIME 27.1 SECONDS (20.0-32.5); PROTHROMBIN TIME 10.7 SECONDS (9.0-12.5)
--- NOTE | 2018-11-28 17:03 | NUR ---
PATIENT RESTING ON STRETCHER WITH EYES CLOSED O2 SAT 88%, O2 INCREASED TO 4L/MIN AND INSTRUCTED TO TAKE SLOW DEEP BREATHS. O2 SAT 95% AT THIS TIME.
--- NOTE | 2018-11-28 17:55 | NUR ---
PATIENT NOTED TO HAVE WET COUGH, NO SPUTUM NOTED.
--- NOTE | 2018-11-28 18:20 | NUR ---
AT BEDSIDE TO DISCUSS RESULTS AND PLAN OF CARE. ADMIT FOR TREATMENT OF PNEUMONIA.
--- NOTE | 2018-11-28 18:40 | NUR ---
PATIENT ASSISTED TO AND FROM BSC, URINE NOTED TO BE KRISTY IN COLOR. STATES PAIN A AZO FOR UTI SYMPTOMS.
[2018-11-28 18:50] LABS: URINE BILIRUBIN - DIPSTICK NEGATIVE (NEGATIVE); URINE BLOOD DIPSTICK NEGATIVE (NEGATIVE); URINE GLUCOSE - DIPSTICK 100 mg/dL (NEGATIVE); URINE KETONE NEGATIVE (NEGATIVE); URINE PROTEIN - DIPSTICK NEGATIVE (NEG-TRACE)
[2018-11-28 18:57] LABS: URINE COLOR DK. YELLOW; URINE LEUK ESTERASE SMALL (NEGATIVE); URINE NITRITE - DIPSTICK POSITIVE (Negative)
[2018-11-28 18:58] LABS: URINE BACTERIA MANY hpf; URINE SQUAMOUS EPITHELIAL CELL FEW EPI/hpf (0-FEW); URINE WBC 20-50 WBC/hpf (0-5)
--- NOTE | 2018-11-28 19:06 | NUR ---
REPORT CALLED TO GUERDA SUN.
--- NOTE | 2018-11-28 19:30 | NUR ---
PATIENT TRANSPORTED TO [facility] VIA STRETCHER WITH TELE AND O2 IN PLACE. CORINNE CROFT AT BEDSIDE. CARE RELINQUISHED. BELONGINGS SENT WITH PATIENT, CANE, CLOTHING AND PURSE
[2018-11-28 19:35] VITALS: BP 119/61
--- NOTE | 2018-11-28 20:00 | NUR ---
PATIENT ADMITTED FROM ER VIA STRETCHER WITH ER STAFF IN ATTENDANCE. PATIENT IS ABLE TO STAND AND WALK TO STANDING SCALE AND THEN TO BED. PATIENT IS AWAKE ALERT AND ORIENTEDX3. O2 VIA NASAL CANNULA IN PLACE. TELE MONITOR IN PLACE. SALINE LOCK TO LEFT AC INTACT AND APPEARS HEALTHY AT THIS TIME. PATIENT WITH DURGESIC PATCH TO RIGHT CHEST-PLACED 11/25/18 PER PATIENT. PATIENT IS BEING ADMITTED FOR PNEUMONIA, FX LEFT 8TH RIB,PATIENT WITH HISTORY OF FALLS AT HOME. FELL OFF TOILET ONTO BATHTUB 2 DAYS AGO.BRUISING NOTED TO LEFT SIDE. PATIENT PROVIDED WITH DINNER TRAY. ORIENTED TO ROOM AND SURROUDINGS. INSTRUCTED ON USE OF NURSE CALL LIGHT, TV REMOTE AND TELEPHONE. SAFETY PRECAUTIONS REINFROCED. CALL LIGHT IN REACH. WILL CONT TO MONITOR.
--- NOTE | 2018-11-28 22:06 | NUR ---
PATIENT UP TO BSC TO VOID 200CC OF ORANGE COLORED URINE-PATIENT IS TAKING AZO AT HOME. BLADDER SCAN IS 87CC AT THIS TIME. PATIENT CONT TO C/O BURNING AND FREQUENCY-URINE CULTURE ALREADY DONE. PATIENT WITH IVF NS PATENT AND INFUSING AT 100CC/HR ORDERED. AZITHROMYCIN 500MG IVPB HUNG ORDERED. PATIENT MEDICATED WITH XANAX 0.5MG PO FOR ANXIETY, ROXICODONE 10MG PO FOR LEFT RIB AND LOW BACK PAIN-6/10 ON PAIN SCALE. SAFETY PRECAUTIONS REINFORCED. CALL LIGHT IN REACH. WILL CONT TO MONITOR.
[2018-11-28 23:48] VITALS: BP 105/66
[2018-11-29] VITALS (7 sets, daily range): BP systolic 91–156; BP diastolic 53–90
--- NOTE | 2018-11-29 01:59 | NUR ---
APPEARS SLEEPING WITH O2 VIA NASAL CANNULA IN PLACE. IVF PATENT AND INFUSING ORDERED VIA LEFT AC SITE. TELE MONITOR IN PLACE. CALL LIGHT IN REACH. WILL CONT TO MONITOR.
--- NOTE | 2018-11-29 03:54 | NUR ---
PATIENT ASSIST OOB TO BSC TO VOID 300CC OF ORANGE URINE. ASSISTED BACK TO BED. O2 VIA NASAL CANNULA IN PLACE. TELE MONITOR IN PLACE. IVF NS PATENT AND INFUSING LEFT AC SITE AT 100CC/HR. SITE REMAINS HEALTHY AT THIS TIME. SAFETY PRECAUTIONS REINFORCED. CALL LIGHT IN REACH. WILL CONT TO MONITOR.
[2018-11-29 05:25] LABS: ALBUMIN 2.9 g/dL (3.2-5.0); ALKALINE PHOSPHATASE 110 u/l (38-126); ANION GAP 6 (6-22 (CALC)); BILIRUBIN, TOTAL 0.4 mg/dL (0.0-1.4); BUN 12 mg/dL (8-23); BUN/CREATININE RATIO 19 (12-20 (CALC)); CARBON DIOXIDE 34 mmol/l (22-30); CHLORIDE 107 mmol/l (95-108); CREATININE 0.6 mg/dL (0.5-1.0); GFR > 60 ML/MIN (>=60 (CALC)); GFR FOR AFR.AMER. > 60 ML/MIN (>=60 (CALC)); SGOT/AST 30 u/l (9-36); SODIUM 142 mmol/l (137-146)
[2018-11-29 05:29] LABS: HEMOGLOBIN 11.4 g/dl (12.0-16.0); IMMATURE GRANULOCYTES 0.5 % (0.0-5.0); MEAN CELL VOLUME 87.5 fL CALC (80.0-100.0); MEAN CORPUSCULAR HGB CONC 30.8 g/L CALC (32.0-36.0); RED BLOOD COUNT 4.23 mill/uL (4.20-5.60); RED CELL DISTRI WIDTH 16.8 % (11.5-15.5)
--- NOTE | 2018-11-29 08:11 | NUR ---
REPORT WAS RECEIVED FROM CORINNE. PATIENT IS SITTING IN THE SIDE OF THE BED. PATIENT IS A&O X3. TELE IN PLACE. O2 AT 3L VIA NC. IVF INFUSING WELL. PATIENT HAS A DRY COUGH. PATIENT TAKE SHALLOW BREATHS. ENCOURAGE PATIENT TO TAKE DEEP BREATHS. PATIENT STATED PAIN IN LEFT RIB IS 9/10. APPLIED HER FENTANYL PATCH IN LEFT CHEST FOR HER PAIN. PATIENT STATED SHE WANTED ALL HER PAIN MEDICATION BECAUSE THE PATCH IS NOT GOING TO HELP HER. TOLD PATIENT I WILL FIRST REASESS HER PAIN THEN GAVE HER MORE PAIN MEDICATION IF NEEDED. SAFETY PRECAUTIONS REINFORCED AND CALL LIGHT IN REACH.
--- NOTE | 2018-11-29 09:02 | NUR ---
REASSESS PT PAIN . PT STATED PAIN IS 10/10 IN LEFT RIB. MEDICATED PT WITH OXYCODOINE SEE EMAR. CALL LIGHT IN REACH.
--- NOTE | 2018-11-29 11:24 | NUR ---
PATIENT IS VISITING IN ROOM WITH FAMILY MEMBER. O2 AT 3L VIA NC. CALL LIGHT IN REACH.
--- NOTE | 2018-11-29 15:02 | NUR ---
PATIENT RESTING IN BED TALKING IN THE PHONE . PATIENT STATED THAT THE PAIN MEDICATION DID HELP SOME IT IS 09/07. PATIENT DENIES ANY NEEDS AT THIS TIME. CALL LIGHT IN REACH.
--- NOTE | 2018-11-29 17:22 | NUR ---
PATIENT SITTING IN RECLINER EATING HER DINNER. CALL LIGHT IN REACH.
--- NOTE | 2018-11-29 19:25 | NUR ---
PATIENT SITTING UP IN CHAIR AT THIS TIME WITH O2 VIA NASAL CANNULA IN PLACE AT 3LPM. PATIENT IS AWAKE ALERT AND ORIENTEDX3-PATIENT WITH NOTED TREMORS. PATIENT C/O SEVERE LEFT RIB AND LOW BACK PAIN-9/10 ON PAIN SCALE. MEDICATED WITH OXYCODONE 10MG PO GIVEN FOR PAIN. PATIENT WITH IV SITE TO LEFT AC WITH IVF NS PATENT AND INFUSING AT 100CC/HR. TELE MONITOR IN PLACE. SAFETY PRECAUTIONS REINFORCED. CALL LIGHT IN REACH. WILL CONT TO MONITOR.
--- NOTE | 2018-11-29 21:15 | NUR ---
PATIENT RESTING IN BED AT THIS TIME WITH O2 VIA NASAL CANNULA IN PLACE. PATIENT CONT WITH TREMORS. MEDICATED WITH XANAX 0.5MG PO FOR ANXIETY, PATIENT PROVIDED WITH CRANBERRY JUICE. IV SITE TO LEFT AC INTACT WITH IVF NS PATENT AND INFUSING ORDERED. TELE MONITOR IN PLACE. SAFETY PRECAUTIONS REFORCED. CALL LIGHT IN REACH. WILL CONT TO MONITOR.
--- NOTE | 2018-11-30 | NUR ---
PATIENT RESTING IN BED WITH O2 VIA NASAL CANNULA IN PLACE. TELE MONITOR IN PLACE. PATIENT CONT TO HAVE MODERATE TREMORS-C/O LEFT RIB AND CHRONIC BACK PAIN 9/10 ON PAIN SCALE. MEDICATED WITH OXYCODONE 10MG PO FOR PAIN AND WITH RESTORIL 15MG PO FOR SLEEP. PATIENT PROVIDED WITH CRANBERRRY JUICE PER PATIENT REQUEST. SAFETY PRECAUTIONS REINFORCED. CALL LIGHT IN REACH. WILL CONT TO MONITOR.
[2018-11-30 04:43] VITALS: BP 118/66
--- NOTE | 2018-11-30 05:24 | NUR ---
PATIENT RESTING IN BED WITH HOB ELEVATED AND O2 VIA NASAL CANNULA. IVF NS PATENT AND INFUSING ORDERED. VS TAKEN AND RECORDED. AFEBRILE. TELE MONITOR IN PLACE. CALL LIGHT IN REACH. WILL CONT TO MONITOR.
[2018-11-30 07:46] VITALS: BP 131/58
--- NOTE | 2018-11-30 08:15 | NUR ---
PT AWAKE RESTING IN RECLINER EATING BREAKFAST. RESP EVEN AND UNLABORED. O2 N/C ON AT 3L. O2 SAT 97%. LUNGS CLEAR BILAT. ABD SOFT AND NONDISTENDED WITH BOWEL SOUNDS PRESENT. NO LOWER EXT EDEMA NOTED. PEDAL PULSES PALPATED BILAT. IV SITE PATENT IN LEFT OUTER ASPECT OF A.C. WITH NSS AT 100CC/HR. TELE SR. PT OFFERS NO COMPLAINTS AT THIS TIME. PT ENCOURAGED TO USE INSENTIVE SPIROMETRY Q 1HR WHILE AWAKE. PT ALSO INSTRUCTED TO FREQUENTLY DO COUGHING AND DEEP BREATHING EXERCISES. PT STATES SHE UNDERSTANDS. FREQUENT ROUNDS MADE. CALL ANDINO WITHIN REACH.
[2018-11-30 10:51] VITALS: BP 98/66
--- NOTE | 2018-11-30 11:32 | NUR ---
PT OOB IN RECLINER. RESP EVEN AND UNLABORED. PT HAS BEEN USING INSENTIVE SPIROMETRY. MEDICATED WITH ROXICODONE 10MG P.O FOR LEFT RIB CAGE DISCOMFORT. PER JOSEPHINE GRAFF JULY D/C IVF. IV CONVERTED TO HEPLOCK. TELE INTACT. NO INCREASE TO BRUISING OVER LEFT LATERAL BACK OR LEFT KNEE. FREQUENT ROUNDS MADE. CALL ANDINO WITHIN REACH.
--- NOTE | 2018-11-30 12:22 | NUR ---
RESTING IN RECLINER. JADE PATENT. TELE SR. OFFERS NO COMPLAINTS. RESP EVEN AND UNLABORED. CALL ANDINO WITHIN REACH.
[2018-11-30 15:05] VITALS: BP 142/80
--- NOTE | 2018-11-30 16:05 | NUR ---
PT AWAKE RESTING IN BED. RESP EVEN AND UNLABORED. HEPLOCK PATENT. PT ASSESSMENT UNCHANGED. REQUESTING XANAX. MEDICATED WITH XANAX 0.5MG P.O FOR SLIGHT ANXIETY. CALL ANDINO WITHIN REACH. TELE SR.
--- NOTE | 2018-11-30 20:05 | NUR ---
PATIENT RESTING IN BED AT THIS TIME WITH O2 VIA NASAL CANNULA IN PLACE AT 3LPM. PATIENT IS AWAKE ALERT AND ORIENTEDX3. TELE MONITOR IN PLACE. SALINE LOCK TO LEFT AC INTACT AND IS HEALTHY WILL GOOD BLOOD RETURN. JUAN M DIANA ORDERED. NO BM TODAY-PROVIDED PATIENT WITH WARM PRUNE JUICE FOR CONSTIPATION. SAFETY PRECAUTIONS REINFORCED. CALL LIGHT IN REACH. WILL CONT TO MONITOR.
[2018-11-30 20:06] VITALS: BP 128/73
--- NOTE | 2018-11-30 21:45 | NUR ---
PATIENT STATES THAT THE PRUNE JUICE UPSET HER STOMACH WAS HAVING SEVERE EPIGASTRIC BURNING. PROVIDED WITH GINGERALE. MEDICATED WITH HS MEDS ORDERED. RESTING IN BED WITH O2 VIA NASAL CANNULA IN PLACE. TELE MONITOR IN PLACE. SAFETY PRECAUTIONS REINFORCED. CALL LIGHT IN REACH. WILL CONT TO MONITOR.
--- NOTE | 2018-11-30 23:56 | NUR ---
PATIENT RESTING IN BED WITH HOB ELEVATED-O2 VIA NASAL CANNULA IN PLACE. TELE MONITOR IN PLACE. CALL LIGHT IN REACH. WILL CONT TO MONITOR.
[2018-12-01 00:27] VITALS: BP 91/58
--- NOTE | 2018-12-01 03:25 | NUR ---
PATIENT RESTING IN BED AT THIS TIME WITH O2 VIA NASAL CANNULA IN PLACE. PATIENT C/O LEFT RIB AND LOW BACK PAIN-MEDICATED WITH ROXICODONE 10MG PO FOR PAIN AND WITH XANAX FOR ANXIETY. PATIENT VOIDED 600CC OF KRISTY URINE. INSTRUCTED NEED FOR URINE SPEC WHEN ABLE TO PROVIDE. VERBALIZES UNDERSTANDING. TELE MONITOR IN PLACE. SAFETY PRECAUTIONS REINFORCED. CALL LIGHT IN REACH. WILL CONT TO MONITOR.
[2018-12-01 04:57] VITALS: BP 90/57
[2018-12-01 05:14] LABS: HEMATOCRIT 36.1 % (37.0-47.0); HEMOGLOBIN 10.8 g/dl (12.0-16.0); IMMATURE GRANULOCYTES 0.4 % (0.0-5.0); MEAN CELL VOLUME 88.3 fL CALC (80.0-100.0); MEAN CORPUSCULAR HGB 26.4 pG CALC (26.0-32.0); MEAN CORPUSCULAR HGB CONC 29.9 g/L CALC (32.0-36.0); NEUT# 3.12 thou/uL (2.00-7.15); RED BLOOD COUNT 4.09 mill/uL (4.20-5.60); RED CELL DISTRI WIDTH 16.4 % (11.5-15.5)
[2018-12-01 05:23] LABS: ANION GAP 6 (6-22 (CALC)); BUN 8 mg/dL (8-23); BUN/CREATININE RATIO 13 (12-20 (CALC)); CARBON DIOXIDE 34 mmol/l (22-30); CHLORIDE 106 mmol/l (95-108); CREATININE 0.6 mg/dL (0.5-1.0); GFR > 60 ML/MIN (>=60 (CALC)); GFR FOR AFR.AMER. > 60 ML/MIN (>=60 (CALC)); POTASSIUM 4.4 mmol/l (3.5-5.1); SODIUM 141 mmol/l (137-146)
--- NOTE | 2018-12-01 06:11 | NUR ---
RESTING IN BED-VOIDED 200CC OF YELLOW URINE-SPEC OBTAINED AND SENT TO LAB. SAFETY PRECAUTIONS REINFORCED. CALL LIGHT IN REACH. WILL CONT TO MONITOR.
[2018-12-01 06:25] LABS: URINE BILIRUBIN - DIPSTICK NEGATIVE (NEGATIVE); URINE BLOOD DIPSTICK NEGATIVE (NEGATIVE); URINE COLOR YELLOW; URINE GLUCOSE - DIPSTICK NEGATIVE (NEGATIVE); URINE KETONE NEGATIVE (NEGATIVE); URINE LEUK ESTERASE NEGATIVE (Negative); URINE NITRITE - DIPSTICK NEGATIVE (Negative); URINE PH 5.5 (4.5-8.0); URINE PROTEIN - DIPSTICK NEGATIVE (NEG-TRACE); URINE UROBILINOGEN - DIPSTICK 0.2 E.U./dL (0.2)
[2018-12-01 06:26] LABS: URINE CLARITY CLEAR
[2018-12-01 07:43] VITALS: BP 95/43
--- NOTE | 2018-12-01 08:00 | NUR ---
PT WOKE FOR BREAKFAST. PT IS ALERT AND ORIENTED X4. PT IS DROWSY THIS MORNING STATES SHE DID NOT SLEEP LAST NIGHT . RESP EVEN AND UNLABORED. O2 N/C ON AT 3L. LUNGS CLEAR IN UPPER LOBES WITH DIMINISHED BREATH SOUNDS IN MID TO LOWER LOBES. ABD SOFT WITH BOWEL SOUNDS PRESENT. NO LOWER EXT EDEMA NOTED. PEDAL PULSES PALPATED BILAT. TELE SB PER E.D. BRUISE ON LEFT BACK AND LEFT KNEE. HEPLOCK PATENT IN LEFT A.C. PT DENIES ANY DISCOMFORT AT THIS TIME. INSENTIVE SPIROMETRY AT BEDSIDE AND PT ENCOURAGED TO USE 10X/HR. CALL ANDINO WITHIN REACH.
--- NOTE | 2018-12-01 08:51 | NUR ---
DR HEATON HERE TO SEE PT. DR HEATON AWARE PT IS POSITIVE FOR ESBL AND DR HEATON STATES HE IS PUTTING IN ORDERS FOR PICC LINE AND LABS FOR A.M. CASE MANAGEMENT PT IS GOING TO BE CHANGED TO IN PT STATUS.
--- NOTE | 2018-12-01 09:08 | NUR ---
PHYSICAL THERAPY IN TO SEE PT AND EVALUATE PT.
--- NOTE | 2018-12-01 10:26 | NUR ---
PT MEDICATED WITH ROXICODONE 10MG P.O FOR RIB DISCOMFORT. PHYSICAL THERAPY WITH PT. CALL ANDINO WITHIN REACH.
--- NOTE | 2018-12-01 10:46 | NUR ---
Explained treatment plan to patient this morning, pt. in agreement to participate in gait training and therapeutic exercises. Sit to stand to RW done with SBA. Pt. ambulated 2x15 feet using RW with light CGA x1. Forward flexed posture is noted of which pt. explains has been long standing. Verbal cues required for pushing RW vs lifting. O2 sats remained in low 90's while ambulating on room air. Pt. returned to sitting in recliner with pt. re-applying O2 via NC for seated therapeutic exercises. Pt. instructed on and performed seated heel and toe raises 2x20 repetitions, seated alternating knee extensions 2x10 repetitions and seated marching 2x10 repetitions. Pt. left resting in recliner with call light and bedside table within reach. AM-PAC score of 16; SNF/IRF. However pt. stated she prefered home health physical therapy due to difficulty obtaining transportation. Spoke with evaluating PT regarding same.
[2018-12-01 11:02] VITALS: BP 131/75
--- NOTE | 2018-12-01 12:05 | NUR ---
PT RETURNED FROM HAVING RT UPPER ARM PICC INSERTED. RT UPPER ARM PICC SITE NO REDNESS,BLEEDING OR SWELLING AT SITE. DRESSING IS CLEAN AND DRY AND DATE. STRONG RADIAL PULSE PALPATED. PT DENIES ANY DISCOMFORT. CALL ANDINO WITHIN REACH.
--- NOTE | 2018-12-01 12:55 | NUR ---
CALL PLACED TO DR HEATON AND INFORMED HIM PT STATES SHE DOES NOT HAVE A HOME CPAP THAT HE WANTED HER TO BRING IN. NEW ORDER RECEIVED TO TRANSFER PT TO ICU FOR CPAP AND START SETTING AT 12 WITH SATURATION AND TO CHECK O2 SAT ON R/A TO SEE IF PT DESATS. ORDER RECEIVED WITH VERBAL READ BACK CONFIRMATION AND CHARTED. AFTAB RESP THERAPY MADE AWARE OF NEW ORDERS RECEIVED.
--- NOTE | 2018-12-01 13:45 | NUR ---
O2 N/C REMOVED FOR 15 MIN. O2 SAT 89%. RESP EVEN AND UNLABORED. NO DISTRESS NOTED. O2 N/C REAPPLIED AT 3L O2 SAT 94-95%. PT STATES SHE IS REFUSING TO BE TRANSFERRED TO ICU AND DOES NOT WANT TO WEAR HOSPITAL CPAP AND LAST TIME SHE WAS HERE SHE COULD NOT TOLERATE IT. PT REQUEST DR HEATON BE CALLED AND INFORMED SHE IS REFUSING TO GO TO ICU.
[2018-12-01 15:03] VITALS: BP 133/69
--- NOTE | 2018-12-01 16:30 | NUR ---
PT AWAKE RESTING IN BED. RESP EVEN AND UNLABORED. PICC PATENT. OFFERS NO COMPLAINTS. CALL ANDINO WITHIN REACH.
[2018-12-01] MEDS ORDERED: MULTIVITAMIN WO1 TAB PO (16:37)
[2018-12-01] MEDS ORDERED: MOTRIN800 MG PO (16:41)
--- NOTE | 2018-12-01 18:20 | NUR ---
PT RESTING IN RECLINER. PICC PATENT. PT ASSESSMENT UNCHANGED. FREQUENT ROUNDS MADE. CALL ANDINO WITHIN REACH.
--- NOTE | 2018-12-01 19:30 | NUR ---
PATIENT SITTING UP IN RECLINER AT THIS TIME-AWAKE ALERT AND ORIENTEDX3. PATIENT ON CONTACT PRECAUTIONS FOR ESBL. USING O2 VIA NASAL CANNULA PRN-PATIENT ON RA AT THIS TIME-IN NO ACUTE DISTRESS. LUNG ARE DIMINISHED THROUGHOUT. ENCOURAGED USE OF IS Q1H WHILE AWAKE AND DEEP BREATHING EXERCISES. TELE MONITOR IN PLACE. DOUBLE PLICC TO RIGHT UPPER ARM-SITE APPEARS HEALTHY AT THIS TIME. SAFETY PRECAUTIONS REINFORCED. CALL LIGHT IN REACH. WILL CONT TO MONITOR.
[2018-12-01 20:05] VITALS: BP 131/72
[2018-12-02 00:04] VITALS: BP 116/73
--- NOTE | 2018-12-02 02:07 | NUR ---
PATIENT RESTING IN BED AT THIS TIME-IVPB MERRUM INFUSING ORDERED VIA RIGHT UPPER ARM PICC-SITE IS HEALTHY WITH GOOD BLOOD RETURN. TELE MONITOR IN PLACE. NO COMPLAINTS AT THIS TIME. SAFETY PRECAUTIONS REINFORCED. CALL LIGHT IN REACH. WILL CONT TO MONITOR.
[2018-12-02 04:12] VITALS: BP 116/70
--- NOTE | 2018-12-02 05:36 | NUR ---
PATIENT RESTING IN BED-LAB WORK DRAWN FROM RIGHT UPPER ARM PICC-FLUSHED PER PROTOCOL WITH SALINE AND HEP. EKG BEING DONE. CALL LIGHT IN REACH. WILL CONT TO MONITOR.
[2018-12-02 06:01] LABS: HEMATOCRIT 34.2 % (37.0-47.0); HEMOGLOBIN 10.5 g/dl (12.0-16.0); IMMATURE GRANULOCYTES 0.4 % (0.0-5.0); MEAN CORPUSCULAR HGB 26.7 pG CALC (26.0-32.0); MEAN CORPUSCULAR HGB CONC 30.7 g/L CALC (32.0-36.0); NEUT# 2.98 thou/uL (2.00-7.15); RED BLOOD COUNT 3.93 mill/uL (4.20-5.60); RED CELL DISTRI WIDTH 16.3 % (11.5-15.5)
[2018-12-02 06:19] LABS: ALBUMIN 2.9 g/dL (3.2-5.0); ALKALINE PHOSPHATASE 91 u/l (38-126); ANION GAP 6 (6-22 (CALC)); BILIRUBIN, TOTAL 0.3 mg/dL (0.0-1.4); BUN 11 mg/dL (8-23); BUN/CREATININE RATIO 16 (12-20 (CALC)); CARBON DIOXIDE 35 mmol/l (22-30); CHLORIDE 102 mmol/l (95-108); CREATININE 0.7 mg/dL (0.5-1.0); GFR > 60 ML/MIN (>=60 (CALC)); GFR FOR AFR.AMER. > 60 ML/MIN (>=60 (CALC)); POTASSIUM 4.2 mmol/l (3.5-5.1); SGOT/AST 21 u/l (9-36); SODIUM 139 mmol/l (137-146); TOTAL PROTEIN 5.9 g/dL (6.3-8.2)
[2018-12-02 07:52] VITALS: BP 103/64
--- NOTE | 2018-12-02 08:10 | NUR ---
DR. HEATON AT [facility] TO ASSESS PATIENT BUT PATIENT IS DROWSY AT THIS TIME. CALL LIGHT IN REACH.
--- NOTE | 2018-12-02 09:35 | NUR ---
ASSESSMENT DONE. PATIENT IS A&O X3. PATIENT IS SITTING IN RECLINER. NICOLÁS STATED PAIN IN RIBS 11/07. MEDICATED PATIENT WITH FENTANYL PATCH IN RIGHT CHEST AND MAG CITRATE. 02 AT 3L VIA NH. TELE IN PLACE. CALL LIGHT IN REACH.
[2018-12-02 11:33] VITALS: BP 121/64
--- NOTE | 2018-12-02 12:07 | NUR ---
PATIENT IS SITTING IN RECLINER EATING HER LUNCH. PATIENT STATED PAIN IN RIBS 11/07. TOLD PATIENT PAIN MEDICATION IS NOT DUE YET. PATIENT VERBALIZED UNDERSTANDING. CALL LIGHT IN REACH.
--- NOTE | 2018-12-02 13:52 | NUR ---
Pt was OOB in chair, c/o being very tried. She stated she would ambulated but too tried to do much. Pt move to stand with SBA and ambulated 1x 40' in room with RW. Posture was flexed with pt c/o of L rib pain increasing at end of walk. [address] during treatment. Pt moved to supine with min assist of LEs. She reported doing LE ex and soing breathing ex indep. Pt left with call ortega/phone and bedside try in reach. O2 stats were 97% and decreased to 91% after walking.
[2018-12-02 15:48] VITALS: BP 127/63
--- NOTE | 2018-12-02 16:02 | NUR ---
PAIENT SITTING IN RECLINER. PATIENT DENIES NEEDS AT THIS TIME. CALL LIGHT IN REACH.
[2018-12-02 19:43] VITALS: BP 128/75
--- NOTE | 2018-12-02 20:10 | NUR ---
PT AWAKE RESTING IN BED. RESP EVEN AND UNLABORED. O2 N/C ON AT 3L. LUNGS REVEAL DIMINISHED BREATH SOUNDS. ABD SOFT AND NONDISTENDED WITH BOWEL SOUNDS PRESENT. PT HAS +1 BILAT LOWER EXT EDEMA NOTED. PEDAL PULSES PALPATED BILAT. RT UPPER ARM PICC PATENT WITH DRESSING CLEAN AND DRY. TELE INTACT. PT OFFERS NO COMPLAINTS AT THIS TIME. FREQUENT ROUNDS MADE. CALL ANDINO WITHIN REACH.
--- NOTE | 2018-12-02 21:42 | NUR ---
MEDICATED WITH RESTORIL 15MG P.O FOR SLEEP PER PTS REQUEST. RESP EVEN AND UNLABORED. O2 N/C ON AT 3L. NO DISTRESS NOTED. PICC PATENT. FREQUENT ROUNDS MADE. CALL ANDINO WITHIN REACH.
--- NOTE | 2018-12-02 22:24 | NUR ---
RESTING IN BED WITH EYES CLOSED. RESP EVEN AND UNLABORED. NO DISTRESS NOTED. O2 N/C ON AT 3L. FREQUENT ROUNDS MADE. CALL ANDINO WITHIN REACH.
[2018-12-03] VITALS (7 sets, daily range): BP systolic 100–133; BP diastolic 53–77
--- NOTE | 2018-12-03 00:20 | NUR ---
PT MEDICATED WITH ROXICONDE 15 MG P.O FOR BACK DISCOMFORT. RESP EVEN AND UNLABORED. NO DISTRESS NOTED. O2 N/C ON AT 3L. TELE INTACT. FREQUENT ROUNDS MADE. CALL ANDINO WITHIN REACH.
--- NOTE | 2018-12-03 02:00 | NUR ---
PT RESTING IN BED WITH EYES CLOSED. RESP EVEN AND UNLABORED. NO DISTRESS NOTED. FREQUENT ROUNDS MADE. CALL ANDINO WITHIN REACH.
--- NOTE | 2018-12-03 04:09 | NUR ---
RESTING IN BED WITH EYES CLOSED. ASSESSMENT UNCHANGED. RESP EVEN AND UNLABORED. NO DISTRESS NOTED. O2 N/C ON AT 3L. PICC PATENT. TELE INTACT. FREQUENT ROUNDS MADE. CALL ANDINO WITHIN REACH.
--- NOTE | 2018-12-03 06:15 | NUR ---
RESTING IN BED WITH EYES CLOSED. RESP EVEN AND UNLABORED. ASSESSMENT UNCHANGED. CALL ANDINO WITHIN REACH.
--- NOTE | 2018-12-03 07:20 | NUR ---
REPORT RECEIVED FROM GUERDA LEMA;PT OOB RESTING IN RECLINER;INTRODUCED SELF TO PT AND POC DISCUSSED;PT DENIES ANY CURRENT PAIN OR NEEDS;RESPIRATIONS EVEN AND UNLABORED,SHALLOW ON O2 @ 3L VIA NC;TELE MONITORING IN PLACE;ENCOURAGED PT TO CALL FOR ASSISTANCE IF NEEDED;FALL PRECAUTIONS IN PLACE WITH CALL LIGHT IN REACH;CONTACT PRECAUTIONS NOTED FOR ESBL;WILL CONTINUE TO MONITOR
--- NOTE | 2018-12-03 09:14 | NUR ---
RT AT BEDSIDE
--- NOTE | 2018-12-03 09:30 | NUR ---
PT OOB RESTING IN RECLINER, A&O X3 BUT DROWSY;VS OBTAINED AND ASSESSMENT COMPLETED;PT DENIES ANY CURRENT PAIN OR DISCOMFORTS JUST REPORTS FEELING "TIRED", PAIN SCALE AND REPORTING EDUCATED;RESPIRATIONS SHALLOW ON O2 @ 3L VIA NC, DIMINISHED LUNG SOUNDS WITH NON-PRODUCTIVE COUGH NOTED AT TIMES;ABDOMEN DISTENDED/SOFT ON PALPATION AND ACTIVE IN ALL 4 QUADRANTS;LAST BM 11/27, OFFERED PT PRUNE JUICE BUT REFUSED AT THIS TIME;WEAK PEDAL PULSES WITH +2 EDEMA NOTED, ENCOURAGED ELEVATION;GENERALIZED BRUISING NOTED TO LEFT SIDE R/T FALL GAS CHARGER;TELE MONITORING IN PLACE;DUNCAN DOUBLE LUMEN PICC LINE FLUSHED AND PATENT, GOOD BLOOD RETURN NOTED;ABX HUNG;PT DENIES ANY ADDITIONAL NEEDS AND IS ENCOURAGED TO CALL FOR ASSISTANCE IF NEEDED;FALL PRECAUTIONS NOTED WITH CALL LIGHT IN REACH;WILL CONTINUE TO MONITOR
--- NOTE | 2018-12-03 09:40 | NUR ---
PHYSICAL THERAY AT BEDSIDE WORKING WITH PATIENT.
--- NOTE | 2018-12-03 10:17 | NUR ---
Pt seen this am for ther ex and gait training. She was OOb in chair, continues to c/o fatigue. Pt performed 20 reps of LEs ex in sitting. Gait 2x 40' with RW in room and O2 in place with SBA/CGA. IV and O2 line management. Gait continues to be very flexed with reminders to stand erect. AMPAC remains at 16 (unchanged). Pt left in chair with O2 in place, call ortega/phone and bedside tray in reach.
--- NOTE | 2018-12-03 11:40 | NUR ---
PT OOB RESTING IN RECLINER;RESPIRATIONS REMAIN EVEN AND UNLABORED,SHALLOW ON O2 @ 3L VIA NC;PT REPORTS LEFT SIDE PAIN RATING 10/10 ON THE PAIN SCALE AND REQUESTS PAIN MEDICATION, PT MEDICATED WITH PRN ROXICODONE 15MG PO;TELE MONITORING IN PLACE;PT DENIES ANY ADDITIONAL NEEDS AT THIS TIME;WILL CONTINUE TO MONITOR FOR EFFECTIVENESS
--- NOTE | 2018-12-03 14:01 | NUR ---
Clinician entered patient room, pt laying supine and agreed to participate in occupational therapy. Pt was able to sit edge of bed with VC's, manuevered RW to bathroom. Pt was able to sit on toilet and complete kacy-care. Pt required Min A to stand from toilet and used RW to stand by sink to perform grooming. Pt was able to wash her hands, wash her face and comb her hair with SBA. Pt perfomed functional mobility to recliner required CGA. AMPAC score 20 with recommendations for home with PT
--- NOTE | 2018-12-03 15:15 | NUR ---
PT OOB SLEEPING IN RECLINER;NO S/S OF DISTRESS NOTED;RESPIRATIONS SHALLOW ON O2 @ 3L VIA NC;TELE MONITORING IN PLACE;RIGHT UPPER ARM PICCLINE PATENT;ASSESSMENT REMAINS UNCHANGED;FALL PRECAUTIONS REMAIN IN PLACE WITH CALL LIGHT IN REACH;WILL CONTINUE TO MONITOR
--- NOTE | 2018-12-03 19:00 | NUR ---
REPORT FROM MADYSON CASTRO. PT SITTING UP IN RECLINER AT BEDSIDE. NO DISTRESS NOTED. 02 VIA NC @ 2L/M. PT C/O PAIN LEFT RIB AREA AND GENERALIZED 10/10. ENCOURAGED REPOSITIONING AND PROVIDED HEAT PACK. WILL MEDICATED WHEN NEXT DOSE AVAILABLE. DISCUSSED POC. PT VERBALIZED UNDERSTANDING. CALL LIGHT WITHIN REACH. WILL CONTINUE TO MONITOR.
--- NOTE | 2018-12-03 19:27 | NUR ---
PT MEDICATED FOR PAIN WITH PRN PO ROXICODONE. PT DENIES ANY OTHER WANTS OR NEEDS AT THIS TIME.
--- NOTE | 2018-12-03 22:42 | NUR ---
PT MEDICATED FOR ANXIETY UPON REQUEST. PT MILDLY SOB AT THIS TIME. [address] ENCOURAGED DEEP BREATHING AND RELAXATION TECHNIQUES. WILL CONTINUE TO MONITOR.
--- NOTE | 2018-12-04 02:24 | NUR ---
IV ABT INFUSING THROUGH ALFREDITO PICC LINE. NO S/S OF ADVERSE REACTION NOTED. WILL CONTINUE TO MONITOR.
[2018-12-04 03:40] VITALS: BP 96/65
--- NOTE | 2018-12-04 06:38 | NUR ---
PT AMBULATED TO BATHROOM WITH WALKER WITH STAND BY ASSIST. NO DISTRESS NOTED. ASSISTED BACK TO BED. NO CURRENT WANTS OR NEEDS. CALL LIGHT WITHIN REACH. WILL CONTINUE TO MONITOR.
--- NOTE | 2018-12-04 07:03 | NUR ---
REPORT RECEIVED FROM DAY NURSE, PT APPEARS TO BE SLEEPING WITH EYES CLOSED; 02@3L NC; CALL ANDINO IN REACH.
--- NOTE | 2018-12-04 08:35 | NUR ---
DR HEATON AT BEDSIDE TO DISCUSS POC.
[2018-12-04 08:46] VITALS: BP 97/57
--- NOTE | 2018-12-04 08:52 | NUR ---
PT SITTING UP IN RECLINER; A/O X3; RESP EVEN AND UNLABORED ON ROOM AIR; TELE IN PLACE; DOUBLE LUMEN PICC NOTED TO DUNCAN, FLUSHED WELL; REDNESS NOTED TO LOWER ABD; MD AWARE OF REDNESS; GENERALIZED EDEMA AND BRUSING NOTED; C/O OF PAIN 12/08; CALL ANDINO IN REACH; SAFETY PRECAUTION REINFORCED;.
--- NOTE | 2018-12-04 09:36 | NUR ---
MEDICATED PT PER EMAR; ASSISTED PT TO RESTROOM, PT ENCOURAGE TO CALL FOR ASSISTANCE; VERBALIZE UNDERSTANDING;
[2018-12-04] MEDS ORDERED: ERTAPENEM1 G1 IV (10:45)
[2018-12-04 11:01] VITALS: BP 121/71
--- NOTE | 2018-12-04 11:13 | NUR ---
Pt was seen for gait training. She was able to stand up from sitting in the recliner with SBA. Static standing balance was good. Then, she ambulated in the room x 2 rounds with rolling walker and SBA. Pt's SPO2 on room air was from 94% on resting to 89% after the activity. No SOB noted during and after the activity. She returned to sit in the recliner, leg rest elevated. Call ortega on her lap.
--- NOTE | 2018-12-04 11:42 | NUR ---
PT SITTING UP ON BSC ANTICIPATING ON MOVING HER BOWELS; DENIES ANY OTHER NEEDS; CALL ANDINO IN REACH;
--- NOTE | 2018-12-04 14:18 | NUR ---
PT SITING UP IN RECLINER; D/C INSTRUCTIONS GIVEN TO PT, VERBALIZED UNDERSTANDING; PT REFUSING HELP WITH DRESSING;
--- NOTE | 2018-12-04 15:24 | NUR ---
PT SITTING ON THE TOILET C/O OF ITCHING IN LOWER ABD; MD NOTIFIED; MEDICATED FOR PAIN 12/08
[2018-12-04 15:50] VITALS: BP 108/78
--- NOTE | 2018-12-04 17:46 | NUR ---
PT SITTING UP IN RECLINER WANTING TO KNOW IF SHE'S BEING D/C TODAY, EXPLAINED TO PT OF WHY SHE'S NOT LEAVING TODAY; CLEAN GOWN PROVIDED TO PT; CALL ANDINO IN REACH;.
--- NOTE | 2018-12-04 18:55 | NUR ---
PT UP IN BATHROOM. NO APPARENT DISTRESS NOTED. INSTRUCTED TO CALL WHEN FINISHED.
--- NOTE | 2018-12-04 19:25 | NUR ---
ORDERS RECEIVED TO DISCONTINUE DREDGE PIPEMAN VIA TELEPHONE ORDER.
--- NOTE | 2018-12-04 21:38 | NUR ---
PT MEDICATED FOR PAIN UPON REQUEST. PT ASSISTED BACK TO BED FROM RECLINER AT THIS TIME. NO APPARENT DISTRESS NOTED. CALL LIGHT WITHIN REACH. WILL CONTINUE TO MONITOR.
--- NOTE | 2018-12-04 22:38 | NUR ---
SLEEPING PILL ADMINISTERED UPON REQUEST.
[2018-12-05 00:17] VITALS: BP 93/53
--- NOTE | 2018-12-05 02:20 | NUR ---
IV ABT INFUSING WITHOUT DIFFICULTY. NO ADVERSE REACTION NOTED. CALL LIGHT WITHIN REACH. WILL CONTINUE TO MONITOR.
[2018-12-05 04:02] VITALS: BP 114/75
--- NOTE | 2018-12-05 06:26 | NUR ---
PT RESTING IN BED WITH EYES CLOSED. NO S/S OF PAIN OR DISCOMFORT NOTED. NO APPARENT DISTRESS. CALL LIGHT WITHIN REACH. WILL CONTINUE TO MONITOR.
--- NOTE | 2018-12-05 08:07 | NUR ---
PT AWAKE SITTING ON BSC EATING HER BREAKFAST. DUE TO PT RECEIVING LAXATIVES YESTERDAY PT IS HAVING FREQUENT BOWEL MOVEMENTS. RESP EVEN AND UNLABORED. O2 N/C ON AT 3L. LUNGS CLEAR BILAT. ABD SOFT AND NONDISTENDED WITH EXCORIATION NOTED TO ABD DUE TO RECEIVING HEP S.Q THAT HAS BEEN D/ERICKA. NO LOWER EXT EDEMA NOTED. PEDAL PULSES PALPATED BILAT. RT UPPER ARM DUAL LUMEN PICC IS PATENT WITH DRESSING CLEAN AND DRY. BOTH LUMENS FLUSHED WITHOUT ANY DIFFICULTY. MEDICATED WITH ROXICODONE 15MG P.O FOR BACK DISCOMFORT. BRUISE NOTED TO LEFT MID BACK AREA AND LEFT KNEE. FREQUENT ROUNDS MADE. CALL ANDINO WITHIN REACH.
[2018-12-05 08:10] VITALS: BP 100/67
--- NOTE | 2018-12-05 09:05 | NUR ---
DR HEATON IN TO SPEAK WITH PT ABOUT D/C HOME TODAY WITH HOME HEALTH. DR HEATON INFORMED PT HOME HEALTH HAS TO BE ARRANGED AND CASE MANAGEMENT WILL LOOK INTO HOME HEALTH ADMINISTERING HER ANTIBIOTIC DAILY. PT DOES HAVE O2 AT HOME. POSSIBLE D/C HOME THIS AFTERNOON PER DR HEATON.
[2018-12-05 11:15] VITALS: BP 92/49
--- NOTE | 2018-12-05 12:30 | NUR ---
PT RESTING IN RECLINER. RESP EVEN AND UNLABORED. O2 N/C ON AT 3L. PICC PATENT. OFFERS NO COMPLAINTS. CALL ANDINO WITHIN REACH.
--- NOTE | 2018-12-05 13:48 | NUR ---
CASE MANAGEMENT IN SPEAKING WITH PT.
--- NOTE | 2018-12-05 15:15 | NUR ---
REVIEWED ALL DISCHARGE INSTRUCTIONS WITH PT. PT IS SET UP WITH [facility] OUTPT IV THERAPY TO COME IN ONCE A DAY FOR MERREM IV. PT TO BE DISCHARGED HOME WITH HOME HEALTH. TEACHING DONE REGARDING PICC LINE. PT TO BE DISCHARGED WITH PICC LINE IN PLACE FOR DAILY IV THERAPY. PICC DRESSING IS CLEAN AND DRY AND BOTH LUMENS FLUSHED WITHOUT ANY DIFFICULTY. PICC DRESSING CHANGE DUE ON FRIDAY. PT AWARE TO CALL PCP FOR FOLLOW UP APPT. PT INSTRUCTED ON DISCHARGE MEDS. PT STATES SHE HAS NO QUESTIONS REGARDING D/C ORDERS . PICC LINE CARD GIVEN TO PT AND PT PLACED IN HER WALLET. SCRIPT GIVEN TO PT FOR IV MERREM QD. FAXED FACE SHEET TO IV THERAPY WITH ORDER FOR IV MERREM QD. PT INSTRUCTED TO CALL IV THERAPY ABOUT 0800 A.M. TO CONFIRM COMING IN AT 1000 FOR IV THERAPY. PT STATES SHE UNDERSTANDS AND HAS NO QUESTIONS.
--- NOTE | 2018-12-05 16:05 | NUR ---
PT RESTING IN RECLINER. CASE MANAGEMENT IS WORKING ON HOME HEALTH ARRANGEMENTS. PT OFFERS NO COMPLAINTS. BELONGINGS ALL PACKED FOR DISCHARGED. FREQUENT ROUNDS MADE. CALL ANDINO WITHIN REACH.
[2018-12-05 16:41] VITALS: BP 121/77
--- NOTE | 2018-12-05 17:05 | NUR ---
PT DISCHARGED VIA WHEELCHAIR WITH HER . ALL BELONGINGS WITH PT. PT HAS DISCHARGE INSTRUCTION. PT IS IN STABLE CONDITION AT TIME OF D/C.
== END 2018-12-05 17:04 | DRG 194 ==
LOC: EDPENDDISTM → EDPENDDISDT → ED 15:35 → ED-I 18:02 → ED 18:26 → MS2 18:27
PROVIDERS: Nurse Practitioner Family; ADMIT Internal Medicine; ATTEND Internal Medicine Geriatric Medicine
PROC: 02HV33Z Insertion of Infusion Device into Superior Vena Cava, Percutaneous Approach (ICD-10-PCS; principal; 2018-12-01)
PROC: B518ZZA Fluoroscopy of Superior Vena Cava, Guidance (ICD-10-PCS; 2018-12-01)
DX: J18.9 Pneumonia, unspecified organism (principal); S22.32XA Fracture of one rib, left side, initial encounter for closed fracture; J44.0 Chronic obstructive pulmonary disease with (acute) lower respiratory infection; N39.0 Urinary tract infection, site not specified; J96.10 Chronic respiratory failure, unspecified whether with hypoxia or hypercapnia; F19.20 Other psychoactive substance dependence, uncomplicated; I50.32 Chronic diastolic (congestive) heart failure; I11.0 Hypertensive heart disease with heart failure; E03.9 Hypothyroidism, unspecified; I25.10 Atherosclerotic heart disease of native coronary artery without angina pectoris; K21.9 Gastro-esophageal reflux disease without esophagitis; F41.9 Anxiety disorder, unspecified; G47.30 Sleep apnea, unspecified; S80.02XA Contusion of left knee, initial encounter; S70.12XA Contusion of left thigh, initial encounter; G89.4 Chronic pain syndrome; M19.90 Unspecified osteoarthritis, unspecified site; D64.9 Anemia, unspecified; E66.01 Morbid (severe) obesity due to excess calories; B96.20 Unspecified Escherichia coli [E. coli] as the cause of diseases classified elsewhere; W18.11XA Fall from or off toilet without subsequent striking against object, initial encounter; Y92.002 Bathroom of unspecified non-institutional (private) residence as the place of occurrence of the external cause; Z99.81 Dependence on supplemental oxygen; Z91.81 History of falling; Z98.84 Bariatric surgery status; Z68.37 Body mass index [BMI] 37.0-37.9, adult; Z91.19 Patient's noncompliance with other medical treatment and regimen; Z16.12 Extended spectrum beta lactamase (ESBL) resistance
CPT/HCPCS: G0378; Q9967

== ENCOUNTER 2019-05-18 | Emergency (ER) | payer MEDICARE ==
[~2019-05-18] MED LIST changes: +ERTAPENEM1 G1 IV; +MOTRIN800 MG PO; +MULTIVITAMIN WO1 TAB PO
[2019-05-18 08:03] LABS: HEMATOCRIT 34.9 % (37.0-47.0); HEMOGLOBIN 10.9 g/dl (12.0-16.0); IMMATURE GRANULOCYTES 0.5 % (0.0-5.0); MEAN CELL VOLUME 84.5 fL CALC (80.0-100.0); MEAN CORPUSCULAR HGB 26.4 pG CALC (26.0-32.0); MEAN CORPUSCULAR HGB CONC 31.2 g/L CALC (32.0-36.0); NEUT# 13.9 thou/uL (2.00-7.15); RED BLOOD COUNT 4.13 mill/uL (4.20-5.60); RED CELL DISTRI WIDTH 15.9 % (11.5-15.5)
[2019-05-18 08:21] LABS: ALBUMIN 3.2 g/dL (3.2-5.0); ALKALINE PHOSPHATASE 104 u/l (38-126); ANION GAP 11 (6-22 (CALC)); BILIRUBIN, TOTAL 0.7 mg/dL (0.0-1.4); BUN 16 mg/dL (8-23); BUN/CREATININE RATIO 25 (12-20 (CALC)); CARBON DIOXIDE 28 mmol/l (22-30); CHLORIDE 102 mmol/l (95-108); CREATININE 0.6 mg/dL (0.5-1.0); GFR > 60 ML/MIN (>=60 (CALC)); GFR FOR AFR.AMER. > 60 ML/MIN (>=60 (CALC)); SGOT/AST 25 u/l (9-36); SODIUM 138 mmol/l (137-146); TOTAL PROTEIN 6.2 g/dL (6.3-8.2)
[2019-05-18 08:32] LABS: ACT PARTIAL THROMBO TIME 28.4 SECONDS (20.0-32.5); INTERNATIONAL NORMALIZED RATIO 1.1 RATIO (0.7-1.3); PROTHROMBIN TIME 11.3 SECONDS (9.0-12.5)
== END 2019-05-18 09:15 | disposition short-term general hospital (02) ==
DX: S72.491A Other fracture of lower end of right femur, initial encounter for closed fracture (principal); M97.11XA Periprosthetic fracture around internal prosthetic right knee joint, initial encounter; E03.9 Hypothyroidism, unspecified; I50.9 Heart failure, unspecified; J44.9 Chronic obstructive pulmonary disease, unspecified; I25.10 Atherosclerotic heart disease of native coronary artery without angina pectoris; E66.01 Morbid (severe) obesity due to excess calories; W01.0XXA Fall on same level from slipping, tripping and stumbling without subsequent striking against object, initial encounter; Y92.003 Bedroom of unspecified non-institutional (private) residence as the place of occurrence of the external cause; Z96.651 Presence of right artificial knee joint

== ENCOUNTER 2019-06-14 18:29 | Observation (INO) | payer MEDICARE ==
[~2019-06-14] VITALS: Ht 157.5 cm; Wt 88.0 kg
--- NOTE | 2019-06-14 18:29 | NUR ---
PT TO ROOM VIA EMS
--- NOTE | 2019-06-14 18:41 | NUR ---
PT ASSESSED. AO X 3. SKIN PINK WARM AND DRY. PT REPORTS UNABLE TO BEAR WEIGHT ON RIGHT LEG. COMPLETED REHAB BUT WAS UNABLE TO GET HERSELF TO THE COMMODE TODAY BEARING WEIGHT ONLY ON THE LEFT LEG
--- NOTE | 2019-06-14 19:30 | NUR ---
PT RESTING COMFORTABLY WAITING RADIOLOGY RESULTS
--- NOTE | 2019-06-14 20:03 | NUR ---
PT MEDICATED FOR PAIN
--- NOTE | 2019-06-14 20:27 | NUR ---
MED SURG UNABLE TO TAKE REPORT AT THIS TIME
--- NOTE | 2019-06-14 20:56 | NUR ---
REPORT CALLED TO CASEY CROFTMANAGER ADMINISTRATION
[2019-06-14] MEDS ORDERED: METOPROL TAR25 MG PO (21:03)
[2019-06-14] MEDS ORDERED: CALC ANTACID PO (21:04)
[2019-06-14] MEDS ORDERED: BENADRYL 25MG C25 MG PO (21:04)
[2019-06-14] MEDS ORDERED: DOCUSATE CAL240 MG PO (21:05)
[2019-06-14] MEDS ORDERED: FERROUS SULF325 M3 PO (21:06)
[2019-06-14] MEDS ORDERED: ZANAFLEX4 MG PO (21:06)
--- NOTE | 2019-06-14 21:30 | NUR ---
PT ARRIVED TO THE FLOOR VIA STRETCHER ACCOMPANIED BY ED STAFF. ALERT AND ORIENTED. PT TRANSFERRED FROM STRETCHER TO BED. RESPIRATIONS EVEN AND UNLABORED ON RA. LUNGS SOUND CLEAR. PEDAL PULSES STRONG. PT REPORTS PAIN IS LESS THAN IT WAS RATING IT A 6/10 STATING THE MEDICATION SHE GOT IN THE ER HELPED. PT ORIENTED TO ROOM AND CALL ANDINO SYSTEM. SAFETY PRECAUTIONS IN PLACE. WILL CONTINUE TO MONITOR.
--- NOTE | 2019-06-14 21:30 | NUR ---
PT TRANSPORTED VIA STRETCHER TO [facility]
[2019-06-14 23:30] VITALS: BP 120/64
[2019-06-14 23:52] VITALS: BP 87/49
[2019-06-15 00:36] VITALS: BP 92/49
--- NOTE | 2019-06-15 00:53 | NUR ---
PT RESTING IN BED. RESPIRATIONS EVEN AND UNLABORED. SAFETY PRECAUTIONS IN PLACE. WILL CONTINUE TO MONITOR.
--- NOTE | 2019-06-15 03:51 | NUR ---
PT RESTING IN BED, NO S/S OF DISTRESS AT THIS TIME. SAFETY PRECAUTIONS IN PLACE. WILL CONTINUE TO MONITOR.
[2019-06-15 04:00] VITALS: BP 94/57
[2019-06-15 05:24] LABS: HEMATOCRIT 31.2 % (37.0-47.0); HEMOGLOBIN 9.4 g/dl (12.0-16.0); IMMATURE GRANULOCYTES 0.5 % (0.0-5.0); MEAN CELL VOLUME 86.4 fL CALC (80.0-100.0); MEAN CORPUSCULAR HGB CONC 30.1 g/L CALC (32.0-36.0); NEUT# 3.57 thou/uL (2.00-7.15); RED BLOOD COUNT 3.61 mill/uL (4.20-5.60); RED CELL DISTRI WIDTH 18.8 % (11.5-15.5)
[2019-06-15 05:52] LABS: ANION GAP 5 (6-22 (CALC)); BUN 10 mg/dL (8-23); BUN/CREATININE RATIO 19 (12-20 (CALC)); CARBON DIOXIDE 29 mmol/l (22-30); CHLORIDE 107 mmol/l (95-108); CREATININE 0.5 mg/dL (0.5-1.0); GFR > 60 ML/MIN (>=60 (CALC)); GFR FOR AFR.AMER. > 60 ML/MIN (>=60 (CALC)); POTASSIUM 3.7 mmol/l (3.5-5.1); SODIUM 139 mmol/l (137-146)
[2019-06-15 08:00] VITALS: BP 109/63
--- NOTE | 2019-06-15 09:00 | NUR ---
PT SEEN AWAKE, ALERT, ORIENTED X 3. PT IS NON WEIGHT-BEARING TO RLE, COMPLIANT WITH SAME. PT TO BSC TODAY NEEDED WITH 2 PERSON ASSIST. PT MEDICATED FOR PAIN NEEDED.
[2019-06-15] MEDS ORDERED: TOPROL XL25 M1 PO (12:46)
[2019-06-15] MEDS ORDERED: ELIQUIS5 MG PO (13:02)
[2019-06-15 14:58] LABS: URINE BILIRUBIN - DIPSTICK NEGATIVE (NEGATIVE); URINE BLOOD DIPSTICK NEGATIVE (NEGATIVE); URINE COLOR YELLOW; URINE GLUCOSE - DIPSTICK NEGATIVE (NEGATIVE); URINE KETONE NEGATIVE (NEGATIVE); URINE LEUK ESTERASE NEGATIVE (NEGATIVE); URINE NITRITE - DIPSTICK NEGATIVE (Negative); URINE PROTEIN - DIPSTICK NEGATIVE (NEG-TRACE); URINE SPECIFIC GRAVITY 1.015
[2019-06-15 15:51] VITALS: BP 129/86
--- NOTE | 2019-06-15 17:00 | NUR ---
PT BEFORE, NEEDED BEDPAN EARLIER TODAY, LARGE BM. PT HELPFUL IN TURNING HERSELF TO SIDE. NO EVIDENCE OF DISTRESS, OCCASIONAL PAIN MED REQUEST.
--- NOTE | 2019-06-15 18:55 | NUR ---
REPORT RECEIVED FROM SHELBY. PT RESTING IN BED. NO S/S OF DISTRESS AT THIS TIME. SAFETY PRECAUTIONS IN PLACE. WILL CONTINUE TO MONITOR.
[2019-06-15 20:48] VITALS: BP 98/52
--- NOTE | 2019-06-15 20:57 | NUR ---
PT ALERT AND ORIENTED. RESPIRATIONS EVEN AND UNLABORED ON RA. VS OBTAINED AND ASSESSMENT COMPLETED. LUNGS SOUND CLEAR. PEDAL PULSES ARE STRONG. PT ASSISTED TO THE BSC AND BACK INTO BED. PT DENIES ANY FURTHER NEEDS AT THIS TIME. SAFETY PRECAUTIONS IN PLACE. WILL CONTINUE TO MONITOR.
--- NOTE | 2019-06-15 23:35 | NUR ---
PT ASSISTED TO THE BSC AND BACK INTO BED.
--- NOTE | 2019-06-16 03:06 | NUR ---
PT RESTING IN BED, RESPIRATIONS EVEN AND UNLABORED ON O2 @ 2L VIA NC. NO S.S OF DISTRESS AT THIS TIME. WILL CONTINUE TO MONITOR.
[2019-06-16 05:21] VITALS: BP 118/70
--- NOTE | 2019-06-16 08:30 | NUR ---
Patient assesed from head to toe completed. Lung sounds clear. ABD soft and nontender. Patient did expressed pain in lower back reated as a 7. No skin issues not. No distress noted. will medicate patient for pain and contiune to monitor patient.
--- NOTE | 2019-06-16 08:42 | NUR ---
PATIENT PERFORMED LE STRENGTHENING EXERCISES IN SUPINE POSITION DONE FOR 10 REPS X 1 SET ON EACH LE. EXERCISES INCLUDE: SLR, HIP ABDUCTION, HEEL SLIDES. ANKLE PUMPS X 20 REPS, QUADS MUSCLE SETTING X 6 SECS HOLD X 10 REPS X 1 SET. TRANSFER/BALANCE TRAINING: [id number] AND STADING TOLERATED USING WALKER. PATIENT TOLERATED 2 MINS OF STANDING, RLE NWB. PT INSTRUCTED PATIENT TO PERFORM ALL LE STRENGTHENING EXERCISES 2X/DAY. AMPAC = 14
--- NOTE | 2019-06-16 14:53 | NUR ---
Discharge info given and reviewed with and she verbalize understanding. IV D/C and end of cath intact. No New skin, Patient did not verbalize pain. [facility] transport picked patient up via strecther No issues at time of discharge but patient was concern about home she is going to move around. Patient stated she could not afford Rehab and her will help her if needed.
== END 2019-06-16 14:50 ==
LOC: ED 18:29 → ED-I 19:55 → ED 20:23 → ED-I 20:24 → MS2 20:24
PROVIDERS: Nurse Practitioner Family; ADMIT Internal Medicine; ATTEND Internal Medicine
DX: S70.11XA Contusion of right thigh, initial encounter (principal); S72.491D Other fracture of lower end of right femur, subsequent encounter for closed fracture with routine healing; I10 Essential (primary) hypertension; E66.01 Morbid (severe) obesity due to excess calories; J44.9 Chronic obstructive pulmonary disease, unspecified; I25.10 Atherosclerotic heart disease of native coronary artery without angina pectoris; E03.9 Hypothyroidism, unspecified; F41.9 Anxiety disorder, unspecified; G47.33 Obstructive sleep apnea (adult) (pediatric); M19.90 Unspecified osteoarthritis, unspecified site; K21.9 Gastro-esophageal reflux disease without esophagitis; G47.00 Insomnia, unspecified; W18.11XA Fall from or off toilet without subsequent striking against object, initial encounter; Y92.002 Bathroom of unspecified non-institutional (private) residence as the place of occurrence of the external cause; M97.11XD Periprosthetic fracture around internal prosthetic right knee joint, subsequent encounter; W19.XXXD Unspecified fall, subsequent encounter; Z96.651 Presence of right artificial knee joint; Z68.35 Body mass index [BMI] 35.0-35.9, adult
CPT/HCPCS: G0378

== ENCOUNTER 2019-06-18 16:55 | Observation (INO) | payer MEDICARE ==
[~2019-06-18] VITALS: Ht 157.5 cm; Wt 88.4 kg
[~2019-06-18 16:55] MED LIST changes: +BENADRYL 25MG C25 MG PO; +CALC ANTACID PO; +DOCUSATE CAL240 MG PO; +ELIQUIS5 MG PO; +FERROUS SULF325 M3 PO; +METOPROL TAR25 MG PO; +TOPROL XL25 M1 PO; +ZANAFLEX4 MG PO
--- NOTE | 2019-06-18 17:02 | NUR ---
PT TO ROOM VIA EMS
--- NOTE | 2019-06-18 17:03 | NUR ---
PT STATES SHE WAS D/C RECENTLY FOR FROM HOSPITAL FOR UTI TREATMENT AND STATE SHE HAS BEEN NAUSEOUS WITH DIARRHEA SINCE LEAVING.
--- NOTE | 2019-06-18 17:10 | NUR ---
PLACED ON BED TRACY FOR ATTEMPTED STOOL CPOLLECTION
[2019-06-18 17:26] LABS: HEMATOCRIT 35.8 % (37.0-47.0); IMMATURE GRANULOCYTES 0.6 % (0.0-5.0); MEAN CELL VOLUME 84.8 fL CALC (80.0-100.0); MEAN CORPUSCULAR HGB 26.1 pG CALC (26.0-32.0); MEAN CORPUSCULAR HGB CONC 30.7 g/dL CAL (32.0-36.0); NEUT# 16.48 thou/uL (2.00-7.15); RED BLOOD COUNT 4.22 mill/uL (4.20-5.60); RED CELL DISTRI WIDTH 18.7 % (11.5-15.5)
[2019-06-18 17:48] LABS: ALBUMIN 3.1 g/dL (3.2-5.0); ALKALINE PHOSPHATASE 134 u/l (38-126); ANION GAP 7 (6-22 (CALC)); BILIRUBIN, TOTAL 0.7 mg/dL (0.0-1.4); BUN 8 mg/dL (8-23); BUN/CREATININE RATIO 14 (12-20 (CALC)); CARBON DIOXIDE 29 mmol/l (22-30); CHLORIDE 105 mmol/l (95-108); CREATININE 0.6 mg/dL (0.5-1.0); GFR > 60 ML/MIN (>=60 (CALC)); GFR FOR AFR.AMER. > 60 ML/MIN (>=60 (CALC)); LIPASE 29 u/l (23-300); POTASSIUM 3.3 mmol/l (3.5-5.1); SGOT/AST 21 u/l (9-36); SODIUM 138 mmol/l (137-146); TOTAL PROTEIN 6.7 g/dL (6.3-8.2)
--- NOTE | 2019-06-18 18:15 | NUR ---
IVF INFUSING ORDERED, PT REMAINS UNABLE TO PROVIDE STOOL SPECIMEN.
--- NOTE | 2019-06-18 19:00 | NUR ---
IN ROOM INTRODUCED SELF TO PT. NO C/O AT THIS TIME, V/S STABLE.
[2019-06-18 19:54] LABS: URINE BILIRUBIN - DIPSTICK NEGATIVE (NEGATIVE); URINE BLOOD DIPSTICK TRACE-INTACT (NEGATIVE); URINE COLOR YELLOW; URINE GLUCOSE - DIPSTICK NEGATIVE (NEGATIVE); URINE KETONE NEGATIVE (NEGATIVE); URINE NITRITE - DIPSTICK NEGATIVE (Negative); URINE PH 6.5 (4.5-8.0); URINE PROTEIN - DIPSTICK NEGATIVE (NEG-TRACE); URINE SPECIFIC GRAVITY 1.015
--- NOTE | 2019-06-18 20:00 | NUR ---
NO LOOSE STOOLS NOTED OF THIS TIME.
[2019-06-18 20:27] LABS: URINE LEUK ESTERASE MODERATE (NEGATIVE)
[2019-06-18 20:36] LABS: URINE BACTERIA FEW hpf; URINE SQUAMOUS EPITHELIAL CELL FEW EPI/hpf (0-FEW); URINE WBC 20-50 WBC/hpf (0-5)
--- NOTE | 2019-06-18 20:50 | NUR ---
MD IN ROOM TO DISCUSS CLINICAL FINDINGS WITH PT. VERBALIZEWD UNDERSTANDING. ALSO MAKE HERE AWARE OF ADMISSION.
--- NOTE | 2019-06-18 22:00 | NUR ---
Admission Note Report Given to: MICHEAL CROFT Transported by: Wheelchair X Stretcher Transported with: X Nurse Transporter X Patent IV O2 Narcotics Detective Location: ICU X MS2
--- NOTE | 2019-06-18 22:55 | NUR ---
IV ABT. STARTED PER MD ORDER.
[2019-06-18 23:19] LABS: HEMATOCRIT 34.1 % (37.0-47.0); HEMOGLOBIN 10.5 g/dl (12.0-16.0); IMMATURE GRANULOCYTES 0.4 % (0.0-5.0); MEAN CELL VOLUME 85.9 fL CALC (80.0-100.0); MEAN CORPUSCULAR HGB 26.4 pG CALC (26.0-32.0); MEAN CORPUSCULAR HGB CONC 30.8 g/dL CAL (32.0-36.0); NEUT# 13.6 thou/uL (2.00-7.15); RED BLOOD COUNT 3.97 mill/uL (4.20-5.60); RED CELL DISTRI WIDTH 18.6 % (11.5-15.5)
--- NOTE | 2019-06-18 23:25 | NUR ---
TAKEN TO MS FLOOR VIA SRTETCHER.
[2019-06-18 23:30] VITALS: BP 131/73
--- NOTE | 2019-06-19 | NUR ---
PT MEDICATED ORDERS PROVIDE. PROVIDED SNACK/GINGERALE PER REQUEST. NO S/O DISTRESS. PT DENIES N/V AT THIS TIME. LIGHTS ON LOW AND PT WATCHING TV.
--- NOTE | 2019-06-19 01:33 | NUR ---
PT MEDICATED FOR SLEEP. DENIES ANY OTHER NEEDS. ASKING FOR XANAX, BUT I EXPLAINED TO HER THAT SHE CANNOT HAVE PAIN, SLEEP AND ANXIETY PILLS ALL AT ONE TIME. PT APPEARS RELAXED IN THE BED WITH THE TV ON.
--- NOTE | 2019-06-19 03:00 | NUR ---
PT SLEEPING AT THIS TIME. NO S/O DISTRESS NOTED.
[2019-06-19 03:20] VITALS: BP 113/63
[2019-06-19 05:37] LABS: ALBUMIN 2.5 g/dL (3.2-5.0); ALKALINE PHOSPHATASE 105 u/l (38-126); ANION GAP 8 (6-22 (CALC)); BUN 7 mg/dL (8-23); BUN/CREATININE RATIO 14 (12-20 (CALC)); CARBON DIOXIDE 28 mmol/l (22-30); CHLORIDE 105 mmol/l (95-108); CREATININE 0.5 mg/dL (0.5-1.0); GFR > 60 ML/MIN (>=60 (CALC)); GFR FOR AFR.AMER. > 60 ML/MIN (>=60 (CALC)); POTASSIUM 3.3 mmol/l (3.5-5.1); SGOT/AST 17 u/l (9-36); SODIUM 137 mmol/l (137-146); TOTAL PROTEIN 5.5 g/dL (6.3-8.2)
[2019-06-19 05:41] LABS: BILIRUBIN, TOTAL 0.4 mg/dL (0.0-1.4)
--- NOTE | 2019-06-19 06:16 | NUR ---
PT MEDICATED ORDERS PROVIDE AND FOR ANXIETY PER REQUEST. PT APPEARED RELAXED, LIGHTS OFF, TV ON LOW AND EYES CLOSED, BUT SOON I ENTERED SHE REPORTED BEING SHAKY AND "NEEDING HER XANAX." PROVIDED ORDERS ALLOW.
[2019-06-19 08:00] VITALS: BP 122/66
--- NOTE | 2019-06-19 08:00 | NUR ---
PT RESTING IN BED, NO SIGNS OF DISTRESS NOTED, RESP EVEN AND UNLABORED. PT ALERT AND ORIENTED X3, DISCUSSED POC, PT TEARFUL STATES SHE DOES NOT WANT TO GO HOME, ASSESSMENT COMPLETED, CALL LIGHT IN REACH,CONTINUE TO MONITOR.
[2019-06-19 08:58] VITALS: BP 122/66
--- NOTE | 2019-06-19 11:30 | NUR ---
CASE MANAGEMENT TO SPEAK WITH PT REGARDING DISCHARGE PLANS AND HOME HEALTH
[2019-06-19] MEDS ORDERED: KEFLEX500 MG PO (12:17)
--- NOTE | 2019-06-19 12:35 | NUR ---
[facility] ARRIVED TO TAKE PT HOME
--- NOTE | 2019-06-19 12:37 | NUR ---
Discharge instructions given. Patient verbalizes understanding of same. Discharged in stable condition via Wheelchair to Home with staff. All belongings sent with pt.
== END 2019-06-19 12:37 ==
LOC: ED 16:55 → ED-I 20:28 → ED 20:39 → ED-I 20:40 → MS2 20:40
PROVIDERS: Family Medicine; ADMIT Internal Medicine; ATTEND Internal Medicine
DX: R11.2 Nausea with vomiting, unspecified (principal); N39.0 Urinary tract infection, site not specified; E87.6 Hypokalemia; I10 Essential (primary) hypertension; I25.10 Atherosclerotic heart disease of native coronary artery without angina pectoris; E03.9 Hypothyroidism, unspecified; J44.9 Chronic obstructive pulmonary disease, unspecified; F41.9 Anxiety disorder, unspecified; F32.9 Major depressive disorder, single episode, unspecified; K21.9 Gastro-esophageal reflux disease without esophagitis; M54.5 Low back pain; G89.29 Other chronic pain; E66.01 Morbid (severe) obesity due to excess calories; B96.20 Unspecified Escherichia coli [E. coli] as the cause of diseases classified elsewhere; Z87.11 Personal history of peptic ulcer disease; Z87.440 Personal history of urinary (tract) infections
CPT/HCPCS: G0378

== ENCOUNTER 2019-11-18 13:59 | Observation (INO) | payer MEDICARE ==
[~2019-11-18] VITALS: Ht 157.5 cm; Wt 94.0 kg
[~2019-11-18 13:59] MED LIST changes: +KEFLEX500 MG PO
[2019-11-18 14:51] LABS: HEMATOCRIT 36.2 % (37.0-47.0); HEMOGLOBIN 10.9 g/dl (12.0-16.0); IMMATURE GRANULOCYTES 0.2 % (0.0-5.0); MEAN CORPUSCULAR HGB 25.9 pG CALC (26.0-32.0); MEAN CORPUSCULAR HGB CONC 30.1 g/dL CAL (32.0-36.0); NEUT# 1.67 thou/uL (2.00-7.15); RED BLOOD COUNT 4.21 mill/uL (4.20-5.60); RED CELL DISTRI WIDTH 16.4 % (11.5-15.5)
[2019-11-18 15:05] LABS: ALBUMIN 3.4 g/dL (3.2-5.0); ALKALINE PHOSPHATASE 92 u/l (38-126); ANION GAP 7 (6-22 (CALC)); BILIRUBIN, TOTAL 0.4 mg/dL (0.0-1.4); BUN 15 mg/dL (8-23); BUN/CREATININE RATIO 19 (12-20 (CALC)); CARBON DIOXIDE 32 mmol/l (22-30); CHLORIDE 101 mmol/l (95-108); CREATININE 0.8 mg/dL (0.5-1.0); GFR > 60 ML/MIN (>=60 (CALC)); GFR FOR AFR.AMER. > 60 ML/MIN (>=60 (CALC)); POTASSIUM 4.1 mmol/l (3.5-5.1); SGOT/AST 22 u/l (9-36); SODIUM 136 mmol/l (137-146); TOTAL PROTEIN 6.7 g/dL (6.3-8.2)
[2019-11-18 15:14] LABS: MYOGLOBIN 27 ng/mL (0 - 62)
[2019-11-18 17:14] LABS: URINE BILIRUBIN - DIPSTICK NEGATIVE (NEGATIVE); URINE BLOOD DIPSTICK SMALL (NEGATIVE); URINE COLOR YELLOW; URINE GLUCOSE - DIPSTICK NEGATIVE (NEGATIVE); URINE KETONE NEGATIVE (NEGATIVE); URINE LEUK ESTERASE TRACE (NEGATIVE); URINE NITRITE - DIPSTICK NEGATIVE (Negative); URINE PROTEIN - DIPSTICK NEGATIVE (NEG-TRACE); URINE SPECIFIC GRAVITY >=1.030
[2019-11-18 17:24] LABS: URINE SQUAMOUS EPITHELIAL CELL FEW EPI/hpf (0-FEW)
[2019-11-18 17:25] LABS: URINE CALCIUM OXALATE CRYSTALS FEW lpf
[2019-11-18 23:55] VITALS: BP 134/71
[2019-11-19 04:00] VITALS: BP 121/71
[2019-11-19 07:38] VITALS: BP 109/80
[2019-11-19] MEDS ORDERED: TOPROL XL25 M1 PO (10:54)
[2019-11-19 11:07] VITALS: BP 115/59
== END 2019-11-19 14:12 | disposition home health service (06) ==
LOC: ED 13:59 → ED-I 16:22 → ED 17:09 → MS2 17:10
PROVIDERS: Emergency Medicine; ADMIT Internal Medicine; ATTEND Internal Medicine
DX: I95.9 Hypotension, unspecified (principal); R00.1 Bradycardia, unspecified; I11.0 Hypertensive heart disease with heart failure; I50.9 Heart failure, unspecified; J44.9 Chronic obstructive pulmonary disease, unspecified; I48.0 Paroxysmal atrial fibrillation; E03.9 Hypothyroidism, unspecified; I25.10 Atherosclerotic heart disease of native coronary artery without angina pectoris; K21.9 Gastro-esophageal reflux disease without esophagitis; M25.551 Pain in right hip; E66.01 Morbid (severe) obesity due to excess calories; Z79.01 Long term (current) use of anticoagulants; Z68.37 Body mass index [BMI] 37.0-37.9, adult; Z87.11 Personal history of peptic ulcer disease; Z98.84 Bariatric surgery status; Z96.653 Presence of artificial knee joint, bilateral; Z87.440 Personal history of urinary (tract) infections; Z11.59 Encounter for screening for other viral diseases
CPT/HCPCS: G0378

== ENCOUNTER 2020-03-04 15:58 | Emergency (ER) | payer MEDICARE ==
[~2020-03-04] VITALS: Ht 157.5 cm; Wt 100.0 kg
[2020-03-04 17:06] LABS: URINE BILIRUBIN - DIPSTICK NEGATIVE (NEGATIVE); URINE BLOOD DIPSTICK SMALL (NEGATIVE); URINE COLOR YELLOW; URINE GLUCOSE - DIPSTICK NEGATIVE (NEGATIVE); URINE KETONE NEGATIVE (NEGATIVE); URINE LEUK ESTERASE NEGATIVE (NEGATIVE); URINE NITRITE - DIPSTICK NEGATIVE (Negative); URINE PROTEIN - DIPSTICK NEGATIVE (NEG-TRACE); URINE SPECIFIC GRAVITY >=1.030; URINE UROBILINOGEN - DIPSTICK 0.2 E.U./dL (0.2)
[2020-03-04 17:08] LABS: IMMATURE GRANULOCYTES 0.1 % (0.0-5.0); MEAN CELL VOLUME 89.2 fL CALC (80.0-100.0); MEAN CORPUSCULAR HGB 28.1 pG CALC (26.0-32.0); MEAN CORPUSCULAR HGB CONC 31.5 g/dL CAL (32.0-36.0); NEUT# 5.77 thou/uL (2.00-7.15); RED BLOOD COUNT 4.73 mill/uL (4.20-5.60); RED CELL DISTRI WIDTH 15.2 % (11.5-15.5)
[2020-03-04 17:23] LABS: HEMATOCRIT 42.2 % (37.0-47.0); HEMOGLOBIN 13.3 g/dl (12.0-16.0)
[2020-03-04 17:26] LABS: URINE SQUAMOUS EPITHELIAL CELL FEW EPI/hpf (0-FEW)
[2020-03-04 17:28] LABS: ALBUMIN 3.7 g/dL (3.2-5.0); ALKALINE PHOSPHATASE 136 u/l (38-126); ANION GAP 10 (6-22 (CALC)); BUN 18 mg/dL (8-23); BUN/CREATININE RATIO 18 (12-20 (CALC)); CARBON DIOXIDE 33 mmol/l (22-30); CHLORIDE 101 mmol/l (95-108); GFR 55 ML/MIN (>=60 (CALC)); GFR FOR AFR.AMER. > 60 ML/MIN (>=60 (CALC)); POTASSIUM 4.2 mmol/l (3.5-5.1); SGOT/AST 27 u/l (9-36); SODIUM 140 mmol/l (137-146); TOTAL PROTEIN 7.3 g/dL (6.3-8.2)
[2020-03-04 17:29] LABS: BILIRUBIN, TOTAL 0.6 mg/dL (0.0-1.4)
[2020-03-04 17:39] LABS: MYOGLOBIN 58 ng/mL (0 - 62)
[2020-03-04] MEDS ORDERED: TAM75CAP PO (18:55)
[2020-03-04] MEDS ORDERED: KEFLEX500 M1 PO (18:55)
[2020-03-04 19:23] VITALS: BP 108/64
== END 2020-03-04 19:39 | disposition home or self-care (01) ==
LOC: ED 15:58
PROVIDERS: Emergency Medicine
DX: J11.1 Influenza due to unidentified influenza virus with other respiratory manifestations (principal); N39.0 Urinary tract infection, site not specified; M25.561 Pain in right knee; E03.9 Hypothyroidism, unspecified; I50.9 Heart failure, unspecified; J44.9 Chronic obstructive pulmonary disease, unspecified; I25.10 Atherosclerotic heart disease of native coronary artery without angina pectoris; E66.01 Morbid (severe) obesity due to excess calories; F32.9 Major depressive disorder, single episode, unspecified; K21.9 Gastro-esophageal reflux disease without esophagitis; Z87.11 Personal history of peptic ulcer disease; Z98.84 Bariatric surgery status; Z96.651 Presence of right artificial knee joint; Z20.828 Contact with and (suspected) exposure to other viral communicable diseases

== ENCOUNTER 2020-06-13 12:34 | Observation (INO) | payer MEDICARE ==
[~2020-06-13] VITALS: Ht 157.5 cm; Wt 93.0 kg
[2020-06-13] VITALS (8 sets, daily range): BP systolic 72–98; BP diastolic 44–57
[~2020-06-13 12:34] MED LIST changes: +KEFLEX500 M1 PO; +TAM75CAP PO
--- NOTE | 2020-06-13 12:34 | NUR ---
PT TO ROOM VIA EMS TRANSFER TO STRETCHER VIA STAFF/EMS
[2020-06-13 13:27] LABS: HEMATOCRIT 38.2 % (37.0-47.0); HEMOGLOBIN 11.5 g/dl (12.0-16.0); IMMATURE GRANULOCYTES 0.9 % (0.0-5.0); MEAN CORPUSCULAR HGB 26.2 pG CALC (26.0-32.0); MEAN CORPUSCULAR HGB CONC 30.1 g/dL CAL (32.0-36.0); NEUT# 3.38 thou/uL (2.00-7.15); RED BLOOD COUNT 4.39 mill/uL (4.20-5.60); RED CELL DISTRI WIDTH 16.1 % (11.5-15.5)
--- NOTE | 2020-06-13 13:29 | NUR ---
IN SUPINE POSITION, ALERT AND ORIENTED X3. RESPS EVEN AND UNLABORED ON O2 VIA NC. PT REQUESTING LUNCH. NOTIFIED.
[2020-06-13 13:42] LABS: D-DIMER 3.61 mg/L (0.19-0.60)
[2020-06-13 13:43] LABS: ALBUMIN 3.5 g/dL (3.2-5.0); ALKALINE PHOSPHATASE 128 u/l (38-126); ANION GAP 12 (6-22 (CALC)); BILIRUBIN, TOTAL 0.5 mg/dL (0.0-1.4); BUN 27 mg/dL (8-23); BUN/CREATININE RATIO 18 (12-20 (CALC)); CARBON DIOXIDE 31 mmol/l (22-30); CHLORIDE 99 mmol/l (95-108); CREATININE 1.5 mg/dL (0.5-1.0); ETHYL ALCOHOL 0 mg/dl (0-30); GFR 34 ML/MIN (>=60 (CALC)); GFR FOR AFR.AMER. 42 ML/MIN (>=60 (CALC)); LIPASE 24 u/l (23-300); POTASSIUM 3.8 mmol/l (3.5-5.1); SGOT/AST 30 u/l (9-36); SODIUM 137 mmol/l (137-146); TOTAL PROTEIN 7.1 g/dL (6.3-8.2)
[2020-06-13 13:47] LABS: ACT PARTIAL THROMBO TIME 30.8 SECONDS (20.0-32.5); INTERNATIONAL NORMALIZED RATIO 1.2 RATIO (0.7-1.3); PROTHROMBIN TIME 12.4 SECONDS (9.0-12.5)
--- NOTE | 2020-06-13 14:05 | NUR ---
COVID SWAB COLLECTED, ISOLATION PRECAUTIONS INITIATED.
[2020-06-13 15:07] LABS: URINE BILIRUBIN - DIPSTICK NEGATIVE (NEGATIVE); URINE BLOOD DIPSTICK NEGATIVE (NEGATIVE); URINE COLOR YELLOW; URINE GLUCOSE - DIPSTICK NEGATIVE (NEGATIVE); URINE KETONE NEGATIVE (NEGATIVE); URINE LEUK ESTERASE NEGATIVE (NEGATIVE); URINE PROTEIN - DIPSTICK NEGATIVE (NEG-TRACE); URINE UROBILINOGEN - DIPSTICK 0.2 E.U./dL (0.2)
[2020-06-13 15:08] LABS: URINE NITRITE - DIPSTICK NEGATIVE (Negative)
[2020-06-13] MEDS ORDERED: OXYCODONE15 MG PO (15:44)
[2020-06-13] MEDS ORDERED: XTAMPZA ER18 MG PO (15:45)
[2020-06-13] MEDS ORDERED: ALPRAZOLAM1 MG PO (15:45)
[2020-06-13] MEDS ORDERED: ELIQUIS5 MG PO (15:46)
[2020-06-13] MEDS ORDERED: ESCITALOPRAM OX10 MG PO (15:46)
[2020-06-13] MEDS ORDERED: TOPROL XL25 MG PO (15:46)
[2020-06-13] MEDS ORDERED: LEVOTHYROXIN100 MCG PO (15:47)
[2020-06-13] MEDS ORDERED: PREGABALIN300 MG PO (15:48)
[2020-06-13] MEDS ORDERED: ZOLPIDEM5 M1 PO (15:49)
[2020-06-13] MEDS ORDERED: TRAZODONE50 MG PO (15:50)
--- NOTE | 2020-06-13 15:55 | NUR ---
TO RADIOLOGY VIA STRETCHER, RESPS EVEN AND UNLABORED ON O2 VIA NC.
[2020-06-13 16:23] LABS: TSH, 3RD GENERATION 1.03 uIU/mL (0.47 - 4.68)
--- NOTE | 2020-06-13 16:45 | NUR ---
MD AT BEDSIDE TO DISCUSS RESULTS AND POC.
--- NOTE | 2020-06-13 18:00 | NUR ---
ASSISTED PT WITH DINNER TRAY.
--- NOTE | 2020-06-13 19:04 | NUR ---
REPORT CALLED TO PANFILO CROFT.
--- NOTE | 2020-06-13 19:15 | NUR ---
PT ARRIVED TO FLOOR VIA STRETCHER AT 191 TRANSFERRED TO BED IN ROOM ICU6. PATIENT IS ALERT/ORIENTEDX4, ON 2L NC, SHE IS CURRENTLY BEDBOUD WITH A HARD CAST ON RLE DUE TO A FRACTURE. PUREWICK CATHETER IN PLACE, DRAINING CLEAR YELLOW URINE. PATIENT STATES PAIN IS COMFORTABLE 5/10 AT THIS TIME, NO SOB OR DISTRESS OBSERVED.
--- NOTE | 2020-06-13 19:40 | NUR ---
PT TRANSPORTED FOR ADMISSION TO ICU, REPORT WAS PREVIOUSLY GIVEN BY GUERDA ROJAS TO JOSEPHINE CROFT IN ICU. PT WAS TRANSPORTED VIA STRETCHER WITH CARDIAC MONITORING AND PORTABLE OXYGEN @ 4L VIA NC. PT WAS TRANSFERRED TO ICU BED.
--- NOTE | 2020-06-13 21:00 | NUR ---
PT RESTING COMFORTABLY, REQUEST TO CALL HER TO GIVE HIM AN UPDATE. VSS, AFEBRILE, SB-SR ON MONITOR. PT DENIES DISCOMFORT AT THIS TIME, AND HAS NO OTHER NEEDS.
--- NOTE | 2020-06-13 23:39 | NUR ---
PT SLEEPING AT THIS TIME. AWOKE PATIENT TO ADJUST BP CUFF. PATIENT REMAINS HYPOTENSIVE, SB-SR ON MONITOR WITH RR 9-13. PT DENIES PAIN AT THIS TIME. NS INFUSING AT 75ML/HR.
[2020-06-14] VITALS (21 sets, daily range): BP systolic 78–125; BP diastolic 48–80
--- NOTE | 2020-06-14 01:15 | NUR ---
PT HAD EPISODE OF NON-SUSTAINED SVT HR 160. PT ASYMPTOMATIC TO EPISODE/DENIES CHEST PAIN OR DISCOMFORT.
[2020-06-14 05:21] LABS: HEMATOCRIT 35.1 % (37.0-47.0); HEMOGLOBIN 10.3 g/dl (12.0-16.0); MEAN CORPUSCULAR HGB 25.8 pG CALC (26.0-32.0); MEAN CORPUSCULAR HGB CONC 29.3 g/dL CAL (32.0-36.0); RED BLOOD COUNT 3.99 mill/uL (4.20-5.60); RED CELL DISTRI WIDTH 15.7 % (11.5-15.5)
[2020-06-14 05:44] LABS: ANION GAP 9 (6-22 (CALC)); BUN 19 mg/dL (8-23); BUN/CREATININE RATIO 20 (12-20 (CALC)); CALCULATED LDLCHOLESTEROL 58 mg/dL (62-129 (CALC)); CARBON DIOXIDE 31 mmol/l (22-30); CHLORIDE 102 mmol/l (95-108); CHOLESTEROL HDL RATIO 2.9 (<4.4 (CALC)); GFR 55 ML/MIN (>=60 (CALC)); GFR FOR AFR.AMER. > 60 ML/MIN (>=60 (CALC)); HDL CHOLESTEROL 37 mg/dL (>=40); MAGNESIUM 1.8 mg/dL (1.6-2.3); POTASSIUM 3.9 mmol/l (3.5-5.1); SODIUM 138 mmol/l (137-146); TOTAL CHOLESTEROL 108 mg/dl (0-199); TOTAL TRIGLYCERIDES 61 mg/dl (30-149); VLDL CHOLESTROL 12 mg/dl (1-41 (CALC))
--- NOTE | 2020-06-14 07:08 | NUR ---
PT REPORT RECEIVED FROM ELECTRICAL MAINTENANCE TECHNICIAN. PT ALERT/ORIENTED X3.
--- NOTE | 2020-06-14 09:38 | NUR ---
PT STATES [facility], THAT SHE FEELS TOO WEAK AND UNSTEADY ON HER LEG WITH HAVING A CAST ON AND HER KNEES TO BE ABLE TO GO BACK HOME.
--- NOTE | 2020-06-14 10:45 | NUR ---
PT SITTING UP IN RECLINER, ASKING WHETHER SHE IS GOING TO BE GOING HOME OR NOT.
--- NOTE | 2020-06-14 11:02 | NUR ---
CALLED AND SPOKE WITH CASE MANAGEMENT ABOUT POSSIBLE TRANSFER TO [facility], SHE STATES THAT WE NEED TO HAVE A PT EVALUATION FIRST.
--- NOTE | 2020-06-14 12:38 | NUR ---
PT WAITING FOR PT EVALUATION. PLACED ON BEDPAN PER PT REQUEST. REMAINS ALERT/ORIENTED X3. CALLED AND IS AWARE OF PT GOING TO [facility] IF AVAILABLE.
--- NOTE | 2020-06-14 15:27 | NUR ---
PT HERE WALKING PT FOR EVALUATION.
--- NOTE | 2020-06-14 15:50 | NUR ---
PT STATES SHE NEEDS TO HAVE BM BUT AFTER PUTTING HER ON BEDPAN STATES SHE CANT GET IT OUT. ORDER FOR MILK OF MAG RECEIVED AND FAXED TO PHARMACY.
--- NOTE | 2020-06-14 16:09 | NUR ---
MIXED MILK OF MAG IN WITH WARM PRUNE JUICE TO GIVE TO PT FOR RELIEF OF CONSTIPATION.
--- NOTE | 2020-06-14 17:00 | NUR ---
PT ASKING FOR SOMETHING FOR HER NERVES. GAVE XANAX PO 1 MG. AND EXTRA BLANKET PER REQUEST.
--- NOTE | 2020-06-14 19:15 | NUR ---
PT RESTING IN BED ALERT& APPROPRIATE. STATES SHE IS "WORN OUT" FROM TRYING TO PASS HARD STOOL TODAY, AND FEELS "MISERABLE". VSS, 2LNC, SR ON MONITOR AT 84 AFEBRILE, DENIES PAIN AT THIS TIME.
--- NOTE | 2020-06-14 21:30 | NUR ---
PT UP WITH 2 ASSIST TO BEDSIDE COMMODE AFTER SOAP SUDS ENEMA GIVEN. PT TOLERATED TRANSFER TO BSC AND SITTING. PT HAD LARGE BM. RETURNED TO BED DINNER WARMED AND STATES NO OTHER NEEDS AT THIS TIME.
[2020-06-15] VITALS (14 sets, daily range): BP systolic 96–128; BP diastolic 52–69
--- NOTE | 2020-06-15 01:30 | NUR ---
PT HAS BEEN HEAVY ON THE CALL LIGHT THROUGHOUT THIS SHIFT WITH C/O OF PAIN AND WANTING "THE MEDICINES THAT SHE TAKES". PATIENT HAS RECEIVED PRN PAIN MEDICATION WELL ANXIETY MEDICATION, IN ADDITION TO A SLEEP AID. ADMINISTRATION OF MEDICATIONS SPACED OUT APPROPRIATELY TO REDUCE RISK OF ADVERSE SIDE EFFECTS. EDUCATED PT THAT SOMETIMES HOME MEDICATIONS ARE NOT ORDERED. PTS BEHAVIOR IS OBSESSIVE IN NATURE REGARDING WHAT SHE HAS "AVAILABLE TO TAKE". OFFERED PT REPOSITIONING/TURNING MEASURES WELL APPLIED HEAT TO ASSIST IN HER COMFORT. PT DECLINED THOSE OPTIONS AT THIS TIME.
--- NOTE | 2020-06-15 03:30 | NUR ---
PT SLEEPING SOUNDLY AT THIS TIME. PT IV PUMP OCCLUDING FREQUENTLY. PLACED 22G IN RW FOR CONTINUOUS IV MAINTENANCE.
--- NOTE | 2020-06-15 06:51 | NUR ---
PT REPORT RECEIVED FROM OYSTER SORTER, PT IS SLEEPING AT THIS TIME.
--- NOTE | 2020-06-15 07:50 | NUR ---
PT HERE FOR EVALUATION AGAIN. PT UNABLE TO PUT PRESSURE ON RIGHT LEG DUE TO KNEE SURGERY AND FRACTURE TO RIGHT ANKLE
--- NOTE | 2020-06-15 08:45 | NUR ---
PT CALLED STAFF INTO REQUEST A STOOL SOFTNER, STATES SHE WANTS ONE EVERY DAY.
--- NOTE | 2020-06-15 09:05 | NUR ---
PT ALERT/ORIENTED X3, ASKING IF SHE WAS GOING TO BE ABLE TO GO TO HALF-WAY TODAY. PT EATING WELL, IV FLUIDS STILL INFUSING.
--- NOTE | 2020-06-15 13:53 | NUR ---
PT RESTING QUIETLY AT THIS TIME, USING PORTABLE PHONE TO TALK TO FAMILY. CASE MANAGEMENT HAS NOT FOUND A PLACEMENT FOR HER YET AT THIS TIME.
--- NOTE | 2020-06-15 16:18 | NUR ---
Patient is seen for exercises and bed mobility. She received a copy of HEP including gluteal sets, quad sets and bridging. Her Am Pac score is unchanged. She remains a good rehab candidate and will be working on bed to chair transfers and sit to [employer] [facility]. We plan to continue strengthening and progress transfers as tolerated
--- NOTE | 2020-06-15 18:08 | NUR ---
PT LAYING IN BED, TALKING ON PHONE. SARAH HAS APPROX 500ML OF URINE OUTPUT. PT ALERT/ORIENTED X3, DENIES ANY DISTRESS AT THIS TIME
--- NOTE | 2020-06-15 19:15 | NUR ---
requested this typewriter operator automatic "talk to me about what i can have next." pt referring to meds. xanax 1mg po given per request for anxiety. pt is NOT visibly anxious. o2 cont per nc. athletic monitor shows sinus rhythm hr 64. #22 rt wrist. ns infusing @ 75cchr. po fluids taken well. purewick in place. fall precautions cont.
--- NOTE | 2020-06-15 20:00 | NUR ---
has had many requests, "call the doctor. i need more medicine". request denied. pt said "i'm afraid i won't have enough for tonight. i'm going home tomorrow." pt ressured. requested purewick to be changed. said "it feels funny." purewick changed. conts to ask for more meds. request denied.
--- NOTE | 2020-06-15 21:00 | NUR ---
sonata 5mg po given per request for sleep. pt requested more meds. request denied.
--- NOTE | 2020-06-16 00:45 | NUR ---
awake. requested pain med. morphine 2mg ivp for leg pain.
[2020-06-16 01:00] VITALS: BP 124/71
--- NOTE | 2020-06-16 01:15 | NUR ---
requested more pain meds. request denied.
--- NOTE | 2020-06-16 01:45 | NUR ---
pt called this field underwriter. pt said "isn't there a doctor that will give me some tylenol with codeine or something?' instructed pt no meds were due.
[2020-06-16 03:00] VITALS: BP 113/60
--- NOTE | 2020-06-16 03:00 | NUR ---
pt called this freelance copywriter & asked for another xanax. request denied.
--- NOTE | 2020-06-16 04:45 | NUR ---
lab here. blood drawn.
[2020-06-16 05:00] VITALS: BP 116/58
--- NOTE | 2020-06-16 06:01 | NUR ---
awake. asked for more pain medication. request denied.
[2020-06-16 07:00] VITALS: BP 109/58
--- NOTE | 2020-06-16 08:00 | NUR ---
PT AWAKE, ALERT, ORIENTED X 3. PT PROVIDED PAIN MEDICINE UPON HER REQUEST, STATES THAT THE MEDICINES ORDERED ARE NOT ENOUGH TO COMPENSATE FOR HER LEVEL OF DISCOMFORT. PT STATES THAT SHE WANTS TO GO HOME, WILL TALK WITH DR DE ANDA WHEN HE ROUNDS.
[2020-06-16 09:00] VITALS: BP 104/60
--- NOTE | 2020-06-16 09:45 | NUR ---
PT HAS BEEN DISCHARGED TO HOME THIS MORNING. DR DE ANDA WROTE ORDERS FOR HOME HEALTH, PT VERBALIZED UNDERSTANDING OF DC INSTRUCTIONS, TAKEN BY WHEELCHAIR TO VEHICLE. PT LEAVES [facility] IN STABLE CONDITION.
--- NOTE | 2020-06-16 11:25 | NUR ---
Attempted to see patient- she is being discharged to rehab. She has her HEP and in fact transferred with assist of HORSE TREKKING GUIDE to wheelchair
== END 2020-06-16 10:00 | disposition home health service (06) ==
LOC: ED 12:34 → ED-I 17:07 → ED 17:23 → ICU 17:24
PROVIDERS: Nurse Practitioner; ADMIT Internal Medicine; ATTEND Internal Medicine
DX: I95.2 Hypotension due to drugs (principal); G92 Toxic encephalopathy; T40.2X5A Adverse effect of other opioids, initial encounter; I11.0 Hypertensive heart disease with heart failure; I50.32 Chronic diastolic (congestive) heart failure; E03.9 Hypothyroidism, unspecified; F32.9 Major depressive disorder, single episode, unspecified; E66.01 Morbid (severe) obesity due to excess calories; J44.9 Chronic obstructive pulmonary disease, unspecified; I25.10 Atherosclerotic heart disease of native coronary artery without angina pectoris; K21.9 Gastro-esophageal reflux disease without esophagitis; E16.2 Hypoglycemia, unspecified; M54.9 Dorsalgia, unspecified; G89.29 Other chronic pain; I48.91 Unspecified atrial fibrillation; G62.9 Polyneuropathy, unspecified; S82.91XD Unspecified fracture of right lower leg, subsequent encounter for closed fracture with routine healing; X58.XXXD Exposure to other specified factors, subsequent encounter; Z68.37 Body mass index [BMI] 37.0-37.9, adult; Z79.01 Long term (current) use of anticoagulants; Z87.11 Personal history of peptic ulcer disease; Z98.84 Bariatric surgery status; Z87.440 Personal history of urinary (tract) infections; Z20.822 Contact with and (suspected) exposure to COVID-19
CPT/HCPCS: Q9967

== ENCOUNTER 2020-08-09 12:10 | Emergency (ER) | payer MEDICARE ==
[~2020-08-09] VITALS: Ht 157.5 cm; Wt 90.9 kg
[~2020-08-09 12:10] MED LIST changes: +ALPRAZOLAM1 MG PO; +PREGABALIN300 MG PO; +TOPROL XL25 MG PO; +XTAMPZA ER18 MG PO
[2020-08-09 13:05] LABS: HEMATOCRIT 33.9 % (37.0-47.0); HEMOGLOBIN 10.1 g/dl (12.0-16.0); IMMATURE GRANULOCYTES 0.4 % (0.0-5.0); MEAN CELL VOLUME 82.9 fL CALC (80.0-100.0); MEAN CORPUSCULAR HGB 24.7 pG CALC (26.0-32.0); MEAN CORPUSCULAR HGB CONC 29.8 g/dL CAL (32.0-36.0); NEUT# 3.03 thou/uL (2.00-7.15); RED BLOOD COUNT 4.09 mill/uL (4.20-5.60); RED CELL DISTRI WIDTH 17.6 % (11.5-15.5)
[2020-08-09 13:09] LABS: URINE BILIRUBIN - DIPSTICK NEGATIVE (NEGATIVE); URINE BLOOD DIPSTICK NEGATIVE (NEGATIVE); URINE COLOR YELLOW; URINE GLUCOSE - DIPSTICK NEGATIVE (NEGATIVE); URINE KETONE NEGATIVE (NEGATIVE); URINE LEUK ESTERASE NEGATIVE (NEGATIVE); URINE PH 5.5 (4.5-8.0); URINE PROTEIN - DIPSTICK NEGATIVE (NEG-TRACE); URINE UROBILINOGEN - DIPSTICK 0.2 E.U./dL (0.2)
[2020-08-09 13:10] LABS: URINE NITRITE - DIPSTICK NEGATIVE (Negative)
[2020-08-09 13:19] LABS: ALBUMIN 2.8 g/dL (3.2-5.0); ALKALINE PHOSPHATASE 78 u/l (38-126); ANION GAP 7 (6-22 (CALC)); BILIRUBIN, TOTAL 0.5 mg/dL (0.0-1.4); BUN 14 mg/dL (8-23); BUN/CREATININE RATIO 18 (12-20 (CALC)); CARBON DIOXIDE 33 mmol/l (22-30); CHLORIDE 99 mmol/l (95-108); CREATININE 0.8 mg/dL (0.5-1.0); GFR > 60 ML/MIN (>=60 (CALC)); GFR FOR AFR.AMER. > 60 ML/MIN (>=60 (CALC)); POTASSIUM 3.7 mmol/l (3.5-5.1); SGOT/AST 17 u/l (9-36); SODIUM 135 mmol/l (137-146); TOTAL PROTEIN 5.8 g/dL (6.3-8.2)
[2020-08-09 14:39] VITALS: BP 110/82
== END 2020-08-09 14:39 | disposition short-term general hospital (02) ==
LOC: ED 12:10
PROVIDERS: Family Medicine
PROC: 02HV33Z Insertion of Infusion Device into Superior Vena Cava, Percutaneous Approach (ICD-10-PCS; principal; 2020-08-09)
DX: I95.9 Hypotension, unspecified (principal); R00.1 Bradycardia, unspecified; I50.9 Heart failure, unspecified; I25.10 Atherosclerotic heart disease of native coronary artery without angina pectoris; J44.9 Chronic obstructive pulmonary disease, unspecified; E03.9 Hypothyroidism, unspecified; F32.9 Major depressive disorder, single episode, unspecified; K21.9 Gastro-esophageal reflux disease without esophagitis; E66.9 Obesity, unspecified; Z98.84 Bariatric surgery status; Z87.440 Personal history of urinary (tract) infections; Z87.11 Personal history of peptic ulcer disease; Z87.01 Personal history of pneumonia (recurrent)

== ENCOUNTER 2020-11-08 21:15 | Emergency (ER) | payer MEDICARE ==
[2020-11-09] MEDS ORDERED: OMEPRAZOLE DR20 MG (03:24)
[2020-11-09] MEDS ORDERED: METOCLOPRAMIDE10 MG PO (03:25)
[2020-11-09] MEDS ORDERED: [UNRECOGNIZED DRUG - SUPPLY] XX (03:25)
[2020-11-09] MEDS ORDERED: LIDOCAINE51 (03:26)
[2020-11-09] MEDS ORDERED: MIDODRINE HYDRO10 MG (03:27)
[2020-11-09] MEDS ORDERED: ALENDRONATE SOD70 MG PO (03:27)
[2020-11-09] MEDS ORDERED: OXYBUTYNIN CHLO10 MG PO (03:27)
[2020-11-09] MEDS ORDERED: NYSTATIN100000 UN2 (03:28)
[2020-11-09] MEDS ORDERED: FLORINEF0.1 MG PO (03:28)
[2020-11-09] MEDS ORDERED: DITROPAN5 MG/TA1 PO (03:28)
[2020-11-09] MEDS ORDERED: LINZESS145 MCG (03:28)
[2020-11-09 08:25] VITALS: BP 116/55
== END 2020-11-09 08:47 | disposition short-term general hospital (02) ==
LOC: ED 21:15
PROC: 2W3QX1Z Immobilization of Right Lower Leg using Splint (ICD-10-PCS; principal; 2020-11-08)
DX: S82.301A Unspecified fracture of lower end of right tibia, initial encounter for closed fracture (principal); S82.831A Other fracture of upper and lower end of right fibula, initial encounter for closed fracture; E03.9 Hypothyroidism, unspecified; F32.9 Major depressive disorder, single episode, unspecified; I50.9 Heart failure, unspecified; E66.01 Morbid (severe) obesity due to excess calories; J44.9 Chronic obstructive pulmonary disease, unspecified; I25.10 Atherosclerotic heart disease of native coronary artery without angina pectoris; K21.9 Gastro-esophageal reflux disease without esophagitis; W01.0XXA Fall on same level from slipping, tripping and stumbling without subsequent striking against object, initial encounter; Y92.009 Unspecified place in unspecified non-institutional (private) residence as the place of occurrence of the external cause; Z87.11 Personal history of peptic ulcer disease; Z87.440 Personal history of urinary (tract) infections; Z96.651 Presence of right artificial knee joint; Z98.84 Bariatric surgery status; Z20.822 Contact with and (suspected) exposure to COVID-19

== ENCOUNTER 2020-12-03 18:32 | Emergency (ER) | payer MEDICARE, MEDICAID ==
[~2020-12-03] VITALS: Ht 157.5 cm; Wt 86.0 kg
[~2020-12-03 18:32] MED LIST changes: +ALENDRONATE SOD70 MG PO; +FLORINEF0.1 MG PO; +LIDOCAINE51; +LINZESS145 MCG; +METOCLOPRAMIDE10 MG PO; +MIDODRINE HYDRO10 MG; +NYSTATIN100000 UN2; +OMEPRAZOLE DR20 MG; +OXYBUTYNIN CHLO10 MG PO; +[UNRECOGNIZED DRUG - SUPPLY] XX
[2020-12-03 19:03] LABS: HEMATOCRIT 36.1 % (37.0-47.0); HEMOGLOBIN 10.7 g/dl (12.0-16.0); MEAN CORPUSCULAR HGB 27.3 pG CALC (26.0-32.0); MEAN CORPUSCULAR HGB CONC 29.6 g/dL CAL (32.0-36.0); NEUT# 1.76 thou/uL (2.00-7.15); RED BLOOD COUNT 3.92 mill/uL (4.20-5.60); RED CELL DISTRI WIDTH 19.1 % (11.5-15.5)
[2020-12-03 19:17] LABS: ALBUMIN 3.3 g/dL (3.2-5.0); CREATININE 1.5 mg/dL (0.5-1.0); POTASSIUM 4.3 mmol/l (3.5-5.1); TOTAL PROTEIN 6.6 g/dL (6.3-8.2)
[2020-12-03 19:19] LABS: BILIRUBIN, TOTAL 1.3 mg/dL (0.0-1.4)
[2020-12-03 19:20] LABS: IMMATURE GRANULOCYTES 0.5 % (0.0-5.0); MEAN CELL VOLUME 92.1 fL CALC (80.0-100.0)
[2020-12-03 19:21] LABS: D-DIMER 2.19 mg/L (0.19-0.60)
[2020-12-03 19:25] LABS: ACT PARTIAL THROMBO TIME 31.5 SECONDS (20.0-32.5); INTERNATIONAL NORMALIZED RATIO 1.4 RATIO (0.7-1.3); PROTHROMBIN TIME 14.8 SECONDS (9.0-12.5)
[2020-12-03 19:47] LABS: TSH, 3RD GENERATION 0.59 uIU/mL (0.47 - 4.68)
[2020-12-04 00:55] VITALS: BP 94/47
== END 2020-12-04 00:55 | disposition short-term general hospital (02) ==
LOC: ED 18:32
PROC: 0T9B70Z Drainage of Bladder with Drainage Device, Via Natural or Artificial Opening (ICD-10-PCS; principal; 2020-12-03)
PROC: 5A09357 Assistance with Respiratory Ventilation, Less than 24 Consecutive Hours, Continuous Positive Airway Pressure (ICD-10-PCS; 2020-12-03)
DX: J18.9 Pneumonia, unspecified organism (principal); J44.0 Chronic obstructive pulmonary disease with (acute) lower respiratory infection; J96.90 Respiratory failure, unspecified, unspecified whether with hypoxia or hypercapnia; R79.89 Other specified abnormal findings of blood chemistry; I95.9 Hypotension, unspecified; F11.20 Opioid dependence, uncomplicated; E03.9 Hypothyroidism, unspecified; F32.9 Major depressive disorder, single episode, unspecified; I50.9 Heart failure, unspecified; E66.01 Morbid (severe) obesity due to excess calories; I25.10 Atherosclerotic heart disease of native coronary artery without angina pectoris; K21.9 Gastro-esophageal reflux disease without esophagitis; G89.29 Other chronic pain; Z98.84 Bariatric surgery status; Z87.440 Personal history of urinary (tract) infections; Z87.01 Personal history of pneumonia (recurrent); Z87.11 Personal history of peptic ulcer disease; Z99.81 Dependence on supplemental oxygen; Z20.822 Contact with and (suspected) exposure to COVID-19

== ENCOUNTER 2021-05-07 23:22 | Inpatient (IN) | payer MEDICARE, MEDICAID ==
[~2021-05-07] VITALS: Ht 157.5 cm; Wt 83.0 kg
--- NOTE | 2021-05-07 23:30 | NUR ---
PT TO ROOM 12 VIA EMS
[2021-05-08] VITALS (17 sets, daily range): BP systolic 95–148; BP diastolic 51–86
[2021-05-08 00:33] LABS: HEMATOCRIT 41.8 % (37.0-47.0); HEMOGLOBIN 12.8 g/dl (12.0-16.0); IMMATURE GRANULOCYTES 0.5 % (0.0-5.0); MEAN CELL VOLUME 85.5 fL CALC (80.0-100.0); MEAN CORPUSCULAR HGB 26.2 pG CALC (26.0-32.0); MEAN CORPUSCULAR HGB CONC 30.6 g/dL CAL (32.0-36.0); NEUT# 6.21 thou/uL (2.00-7.15); RED BLOOD COUNT 4.89 mill/uL (4.20-5.60); RED CELL DISTRI WIDTH 16.4 % (11.5-15.5)
[2021-05-08 00:46] LABS: ALBUMIN 3.6 g/dL (3.2-5.0); ALKALINE PHOSPHATASE 75 u/l (38-126); BUN 12 mg/dL (8-23); BUN/CREATININE RATIO 14 (12-20 (CALC)); CARBON DIOXIDE 24 mmol/l (22-30); CHLORIDE 100 mmol/l (95-108); CREATININE 0.8 mg/dL (0.5-1.0); ETHYL ALCOHOL 0 mg/dl (0-30); GFR > 60 ML/MIN (>=60 (CALC)); GFR FOR AFR.AMER. > 60 ML/MIN (>=60 (CALC)); LIPASE 49 u/l (23-300); MAGNESIUM 1.8 mg/dL (1.6-2.3); SGOT/AST 28 u/l (9-36); TOTAL PROTEIN 7.5 g/dL (6.3-8.2)
[2021-05-08 00:47] LABS: ACT PARTIAL THROMBO TIME 29.7 SECONDS (20.0-32.5); INTERNATIONAL NORMALIZED RATIO 1.1 RATIO (0.7-1.3); PROTHROMBIN TIME 11.7 SECONDS (9.0-12.5)
[2021-05-08 00:59] LABS: ANION GAP 15 (6-22 (CALC)); BILIRUBIN, TOTAL 0.5 mg/dL (0.0-1.4); SODIUM 135 mmol/l (137-146)
--- NOTE | 2021-05-08 01:47 | NUR ---
PT RESTRAINED TO PROTECT AIRWAY. BILATERAL HANDS PINK, WARM TO TOUCH WITH CAP REFILL<2 SEC.
[2021-05-08 01:52] LABS: URINE BILIRUBIN - DIPSTICK NEGATIVE (NEGATIVE); URINE BLOOD DIPSTICK NEGATIVE (NEGATIVE); URINE COLOR YELLOW; URINE GLUCOSE - DIPSTICK NEGATIVE (NEGATIVE); URINE KETONE NEGATIVE (NEGATIVE); URINE LEUK ESTERASE NEGATIVE (NEGATIVE); URINE PROTEIN - DIPSTICK NEGATIVE (NEG-TRACE); URINE SPECIFIC GRAVITY 1.025; URINE UROBILINOGEN - DIPSTICK 0.2 E.U./dL (0.2)
[2021-05-08 01:53] LABS: URINE NITRITE - DIPSTICK NEGATIVE (Negative)
--- NOTE | 2021-05-08 03:58 | NUR ---
70 yr old white female admitted icu8 per stretcher from er. pt remains intubated. eyes open. assisted x4 to bed. bed weight obtained. handcrew foreman shows sinus rhythm. #20 lt hand saline lock. #22 rt hand ativan gtt infusing well. elliott cath in place. urine yellow. bilat wrist restraints cont. bilat scds applied. #16 og placed & attached to lis. history obtained per er & old record. fall precautions initiated.
--- NOTE | 2021-05-08 04:35 | NUR ---
rt here. abgs drawn.
--- NOTE | 2021-05-08 05:22 | NUR ---
xray here. pcxr obtained.
[2021-05-08 06:21] LABS: HEMATOCRIT 39.1 % (37.0-47.0); HEMOGLOBIN 12.1 g/dl (12.0-16.0); IMMATURE GRANULOCYTES 0.8 % (0.0-5.0); MEAN CORPUSCULAR HGB 26.3 pG CALC (26.0-32.0); MEAN CORPUSCULAR HGB CONC 30.9 g/dL CAL (32.0-36.0); NEUT# 5.15 thou/uL (2.00-7.15); RED BLOOD COUNT 4.6 mill/uL (4.20-5.60); RED CELL DISTRI WIDTH 16.5 % (11.5-15.5)
[2021-05-08 06:35] LABS: ALBUMIN 2.9 g/dL (3.2-5.0); ALKALINE PHOSPHATASE 69 u/l (38-126); ANION GAP 12 (6-22 (CALC)); BILIRUBIN, TOTAL 0.6 mg/dL (0.0-1.4); BUN 11 mg/dL (8-23); BUN/CREATININE RATIO 14 (12-20 (CALC)); CARBON DIOXIDE 24 mmol/l (22-30); CHLORIDE 103 mmol/l (95-108); CREATININE 0.8 mg/dL (0.5-1.0); GFR > 60 ML/MIN (>=60 (CALC)); GFR FOR AFR.AMER. > 60 ML/MIN (>=60 (CALC)); SGOT/AST 23 u/l (9-36); SODIUM 136 mmol/l (137-146); TOTAL PROTEIN 6.2 g/dL (6.3-8.2)
[2021-05-08 06:40] LABS: POTASSIUM 3.1 mmol/l (3.5-5.1)
[2021-05-08] MEDS ORDERED: LEVOTHYROXIN112 MC1 PO (07:27)
[2021-05-08] MEDS ORDERED: LIDOCAINE PATCH 55 % TOP (07:28)
[2021-05-08] MEDS ORDERED: XANAX1 MG PO (07:28)
[2021-05-08] MEDS ORDERED: LEXAPRO10 MG PO (07:28)
[2021-05-08] MEDS ORDERED: TRAZODONE50 MG PO (07:29)
[2021-05-08] MEDS ORDERED: DITROPAN XL10 MG PO (07:29)
[2021-05-08] MEDS ORDERED: OXYCODONE15 MG PO (07:30)
[2021-05-08] MEDS ORDERED: METOCLOPRAMIDE10 MG PO (07:30)
[2021-05-08] MEDS ORDERED: XTAMPZA ER18 MG PO (07:30)
[2021-05-08] MEDS ORDERED: ZOLPIDEM10 M1 PO (07:30)
--- NOTE | 2021-05-08 07:30 | NUR ---
PT SEEN SEDATED AND VENTILATED, ATIVAN DRIP FOR SEDATION. PT WITH OCCASIONAL MOVEMENT IN BED, MORE WITH ACTIVITY IN ROOM. NO DISTRESS.
[2021-05-08] MEDS ORDERED: ALENDRONATE SOD70 MG PO (07:31)
[2021-05-08] MEDS ORDERED: MIDODRINE10 MG PO (07:31)
[2021-05-08] MEDS ORDERED: OMEPRAZOLE DR40 MG PO (07:32)
--- NOTE | 2021-05-08 09:06 | NUR ---
PT NOW ON BREATHING TRIAL, PER CONVERSATON WITH DR GARZA. ATIVAN OFF.
--- NOTE | 2021-05-08 10:52 | NUR ---
PT MET CRITERIA FOR EXTUBATION. ORDER GIVEN BY DR. GARZA TO EXTUBATE PATIENT. PT EXTUBATED TO ROOM AIR WITH SATS OF 93%. RT TO CONTINUE TO EVALUATE NEED FOR O2 THERAPY. PT TOLERATED EXTUBATION WELL. VITAL SIGNS ARE STABLE, AND PATIENT WAS ABLE TO TELL US HER NAME AND DATE OF POST EXTUBATION.
--- NOTE | 2021-05-08 13:30 | NUR ---
PT HAS BEEN EXTUBATED SUCCESSFULLY, SEEN DROWSY IN THE BED WITH SATS SEEN MID 90s. PT ROUSES TO VOICE, OTHERWISE IS SLEEPING.
--- NOTE | 2021-05-08 19:30 | NUR ---
awake. eating supper. denies resp difficulty. clinical research monitor shows sinus rhythm hr 82. #22 rt hand saline lock. #20 lt hand ns infusing @ 125cchr. elliott cath in place. urine clear yellow. fall precautions cont.
--- NOTE | 2021-05-08 20:30 | NUR ---
awakens easily then requested "pain pill." request denied. no apparent distress.
[2021-05-09] VITALS (12 sets, daily range): BP systolic 104–146; BP diastolic 58–76
--- NOTE | 2021-05-09 00:01 | NUR ---
eyes closed. no distress. cardiac catheterization technician shows sinus rhythm hr 82.
--- NOTE | 2021-05-09 02:00 | NUR ---
resting quietly. nad. ivf infusing well.
--- NOTE | 2021-05-09 04:00 | NUR ---
eyes closed. no distress. security monitor shows sinus rhythm hr 80
--- NOTE | 2021-05-09 05:36 | NUR ---
lab here. blood drawn.
[2021-05-09 05:48] LABS: HEMATOCRIT 39.9 % (37.0-47.0); HEMOGLOBIN 11.7 g/dl (12.0-16.0); MEAN CELL VOLUME 89.1 fL CALC (80.0-100.0); MEAN CORPUSCULAR HGB 26.1 pG CALC (26.0-32.0); MEAN CORPUSCULAR HGB CONC 29.3 g/dL CAL (32.0-36.0); RED BLOOD COUNT 4.48 mill/uL (4.20-5.60); RED CELL DISTRI WIDTH 16.8 % (11.5-15.5)
[2021-05-09 08:33] LABS: ANION GAP 12 (6-22 (CALC)); BUN 8 mg/dL (8-23); BUN/CREATININE RATIO 11 (12-20 (CALC)); CARBON DIOXIDE 20 mmol/l (22-30); CHLORIDE 111 mmol/l (95-108); CREATININE 0.8 mg/dL (0.5-1.0); GFR > 60 ML/MIN (>=60 (CALC)); GFR FOR AFR.AMER. > 60 ML/MIN (>=60 (CALC)); MAGNESIUM 1.5 mg/dL (1.6-2.3); SODIUM 139 mmol/l (137-146)
--- NOTE | 2021-05-09 09:00 | NUR ---
PT SEEN AWAKE, ALERT, ORIENTED. LUNGS CLEAR, RA. PT APPEARS ANXIOUS THIS MORNING, ENCOURAGEMENT PROVIDED NEEDED.
--- NOTE | 2021-05-09 12:45 | NUR ---
PT CONTINUES WITH ANXIETY, PROVIDED XANAX AND PERCOCET REQUESTED. PT WORRIED ABOUT GOING TO REHAB. JAYDE HAS CALLED AND WAS UPDATED.
--- NOTE | 2021-05-09 17:12 | NUR ---
RECEIVE REPORT FROM [facility] ICU. PATIENT ALERT AND ORIENTED. VERY ANXIOUS IS OBSERVED. EDUCATED PATIENT ABOUT MEDICATIONS AND NURSING CARE. PATIENT AND FAMILY REFER UNDERSTAND
--- NOTE | 2021-05-09 20:00 | NUR ---
PHYSICAL ASSESMENT COMPLETE. PT CURRENTLY DENIES PAIN OR DISCOMFORT. SCHEDULED MEDICATIONS AND PRN MEDICATION ADMINISTERED, SEE E-MAR. PT DENIES ANY NEEDS AT THIS TIME. PLAN OF CARE REVIEWED, PT DENIES QUESTIONS, VERBALIZES UNDERSTANDING. ITEMS WITHIN REACH, BED LOCKED IN LOW POSITION W/ BEDRAILS UP X2. CALL ANDINO WITHIN REACH, AGREES TO CALL PRN.
[2021-05-10 00:04] VITALS: BP 148/72
--- NOTE | 2021-05-10 00:31 | NUR ---
PT LAYING IN BED WITH EYES CLOSED, APPEARS TO BE SLEEPING, APPEARS COMFORTABLE AND IN NO DISTRESS. RESPIRATIONS REGULAR AND UNLABORED. ITEMS REMAIN WITHIN REACH, CALL ANDINO REMAINS WITHIN REACH. BED REMAINS LOCKED AND IN LOW POSITION WITH BEDRAILS UP X2. WILL CONTINUE TO MONITOR.
[2021-05-10 04:00] VITALS: BP 132/69
--- NOTE | 2021-05-10 04:00 | NUR ---
PT RESTING IN BED, NO SIGNS OF DISTRESS NOTED, RESP EVEN AND UNLABORED. PT VOICES NO NEEDS OR COMPLAINTS AT THIS TIME. CALL LIGHT IN REACH, CONTINUE TO MONITOR.
[2021-05-10 05:30] LABS: HEMATOCRIT 34.7 % (37.0-47.0); HEMOGLOBIN 10.6 g/dl (12.0-16.0); MEAN CELL VOLUME 86.3 fL CALC (80.0-100.0); MEAN CORPUSCULAR HGB 26.4 pG CALC (26.0-32.0); MEAN CORPUSCULAR HGB CONC 30.5 g/dL CAL (32.0-36.0); RED BLOOD COUNT 4.02 mill/uL (4.20-5.60); RED CELL DISTRI WIDTH 16.9 % (11.5-15.5)
[2021-05-10 05:48] LABS: ANION GAP 10 (6-22 (CALC)); BUN 4 mg/dL (8-23); BUN/CREATININE RATIO 6 (12-20 (CALC)); CARBON DIOXIDE 21 mmol/l (22-30); CHLORIDE 112 mmol/l (95-108); CREATININE 0.7 mg/dL (0.5-1.0); GFR > 60 ML/MIN (>=60 (CALC)); GFR FOR AFR.AMER. > 60 ML/MIN (>=60 (CALC)); MAGNESIUM 1.9 mg/dL (1.6-2.3); POTASSIUM 2.7 mmol/l (3.5-5.1); SODIUM 140 mmol/l (137-146)
--- NOTE | 2021-05-10 07:53 | NUR ---
RECEIVE REPORT FROM [facility] RN. PATIENT STABLE AT THIS TIME.
[2021-05-10 08:00] VITALS: BP 132/69
[2021-05-10] MEDS ORDERED: ELIQUIS5 MG PO (09:48)
[2021-05-10] MEDS ORDERED: FEROSUL325 MG PO (09:53)
--- NOTE | 2021-05-10 10:16 | NUR ---
Patient supine as entered room. Agreed to participate in session. supine>sit independent. Sit>stand independent but all energy exercted throough UE. unsteady on feet, patient has no confidence when standing exerted all enrgy through UE. with vebal cues and explanation patient relieve stress through UE and tsken 2 steps. Stand>sit independent, sit>supine independant. as in semoi-fowlers position patient executed short arc quads, heel slides, hip abduction and ankle pumps. [facility] 6 score of 13
--- NOTE | 2021-05-10 10:26 | NUR ---
CONTACTED [facility] FOR MED LIST, UPDATED WELL
--- NOTE | 2021-05-10 10:38 | NUR ---
Blood culture results called to [facility], [place] 04/03 vials growing gram (+) cocci. No new orders at this time.
[2021-05-10 10:45] VITALS: BP 143/87
--- NOTE | 2021-05-10 15:00 | NUR ---
Patient was sitting up in bed, with lunch in front of her, but she communicated she was not hungry. Maribel presents with barriers secondary to poor mental health. She was AOx4, able to complete simple self care tasks, but is perseverating on returning home to pack bags before going to snf. She consistently repeated how confused she was.
[2021-05-10 15:51] VITALS: BP 165/89
[2021-05-10 18:57] VITALS: BP 139/67
--- NOTE | 2021-05-10 20:25 | NUR ---
PT RESTING IN BED, NO SIGNS OF DISTRESS NOTED, RESP EVEN AND UNLABORED. PT ALERT AND ORIENTED X3, DISCUSSED POC AND NEED FOR CONTACT PRECAUTIONS REGARDING HX OF ESBL SWABBED PER PROTOCOL, PT MEDICATED PER MAR, PT CONCERNED THAT SHE HAS NOT RECEIVED HER ELIQUIS,WILL NOTIFY MD. ASSESSMENT REVIEW COMPLETED, CALL LIGHT IN REACH,CONTINUE TO MONITOR.
--- NOTE | 2021-05-10 21:29 | NUR ---
MD PRESCRIBED OTILIA, PT CONTENT, MEDICATED AT THIS TIME, VOICES NO NEEDS OR COMPLAINTS AT THIS TIME, CALL LIGHT IN REACH,CONTINUE TO MONITOR.
[2021-05-11] VITALS: BP 149/75
--- NOTE | 2021-05-11 | NUR ---
PT RESTING WITH EYES CLOSED, EASILY AROUSED TO VERBALIZED UNDERSTANDING. VOICES NO NEEDS OR COMPLAINTS AT THIS TIME, IV ANTIBIOTIC HUNG, CALL LIGHT IN REACH,CONTINUE TO MONITOR.
[2021-05-11 04:00] VITALS: BP 140/66
--- NOTE | 2021-05-11 04:18 | NUR ---
PT RESTING IN BED WITH EYES CLOSED, EASILY AROUSED TO VERBAL STIMULI, WEB CONTENT WRITER AT BEDSIDE, CALL LIGHT IN REACH,CONTINUE TO MONITOR.
[2021-05-11 05:06] LABS: HEMATOCRIT 33.9 % (37.0-47.0); HEMOGLOBIN 10.1 g/dl (12.0-16.0); MEAN CELL VOLUME 88.1 fL CALC (80.0-100.0); MEAN CORPUSCULAR HGB 26.2 pG CALC (26.0-32.0); MEAN CORPUSCULAR HGB CONC 29.8 g/dL CAL (32.0-36.0); RED BLOOD COUNT 3.85 mill/uL (4.20-5.60); RED CELL DISTRI WIDTH 17.1 % (11.5-15.5)
[2021-05-11 05:16] LABS: BUN 3 mg/dL (8-23); BUN/CREATININE RATIO 5 (12-20 (CALC)); CARBON DIOXIDE 22 mmol/l (22-30); CHLORIDE 113 mmol/l (95-108); CREATININE 0.6 mg/dL (0.5-1.0); GFR > 60 ML/MIN (>=60 (CALC)); GFR FOR AFR.AMER. > 60 ML/MIN (>=60 (CALC)); MAGNESIUM 1.7 mg/dL (1.6-2.3); SODIUM 139 mmol/l (137-146)
[2021-05-11 05:17] LABS: ANION GAP 7 (6-22 (CALC)); POTASSIUM 3.3 mmol/l (3.5-5.1)
--- NOTE | 2021-05-11 10:42 | NUR ---
REPORT RECEIVE THIS MORNING FROM [facility]. PATIENT STABLE. NO DISTRESS AT THIS TIME. REPORT PAIN MEDICATIONS IS ADMINISTER. MYRA ODONNELL IS DONE FOR FALL PRECAUTIONS AND PATIENT SATISFACTION.
[2021-05-11 11:03] VITALS: BP 156/92
[2021-05-11 14:50] VITALS: BP 169/86
[2021-05-11 19:00] VITALS: BP 162/77
--- NOTE | 2021-05-11 19:46 | NUR ---
PT RESTING IN BED WATCHING TV, PT C/O "IMMENSE PAIN" TO LOWER BACK. NO SIGNS OF DISTRESS NOTED, RESP EVEN AND UNLABORED. ANIMAL TRAINER AT BEDSIDE REMOVING DINNER TRAY. OFFERED PT WARM PACKS, PT AGREED. WARM COMPRESSESS APPLIED TO LOWER BACK, REPOSITIONED WITH PILLOWS. PT STATES SHE TAKES STRONGER PAIN MEDICATIONS THAN PRESCRIBED. WILL NOTIFY MD, ASSESSMENT REVIEW COMPLETED, CALL LIGHT IN REACH,CONTINUE TO MONITOR.
--- NOTE | 2021-05-11 20:01 | NUR ---
Subjective: Patient states that she doen't know what is going to happen to her when she leaves the hospital. Objective: Patient did the following: Patient did seated B LE AROM exercises: hip flexion, hip adduction and abduction, hamstring curls, knee extension, gluteal squeezes, and ankle pumps for 2 x 10 reps with 1 to 2 rest periods. Patient also did bed mobility, transfers, and gait ADLs with min A x 1 covering approximately 10 feet x 2 reps around the room on level surfaces. Assessment: Patient continues to receive min A x 1 with increased functional weight bearing ADLs secondary to muscle weakness, decreased endurance, and inconsistency with proper body mechanics. Plan: Patient to continue with PT intervention focusing on strengthening exercises, practice of dynamic balance, and practice fo proper body mechanics to help patient get back to near PLOF. Am Pac score at 11 points, discharge recommendation will be extended care facility placement.
--- NOTE | 2021-05-11 21:00 | NUR ---
MEDICATION BROUGHT IN FROM HOME BY , SENT TO PHARMACY TO PROFILE.
--- NOTE | 2021-05-11 21:10 | NUR ---
PT RESTING IN BED, MEDICATED WITH ADDITIONAL PERCOCET APPROVED BY MD, PT VERY THANKFUL AND SHOWING GRATITUDE, NO SIGNS OF DISTRESS NOTED, RESP EVEN AND UNLABORED. CALL LIGHT IN REACH,CONTINUE TO MONITOR.
[2021-05-12] VITALS: BP 127/70
--- NOTE | 2021-05-12 | NUR ---
PT RESTING IN BED EASILY AROUSED TO VERBAL STIMULI, IV ZOSYN HUNG, VOICES NO NEEDS OR COMPLAINTS AT THIS TIME, CALL LIGHT IN REACH,CONTINUE TO MONITOR.
--- NOTE | 2021-05-12 03:51 | NUR ---
PT CALLED REQUESTING A BLANKET AND C/O PAIN TO HER BACK, PT MEDICATED PER MAR, NO SIGNS OF DISTRESS NOTED, RESP EVEN AND UNLABORED. CALL LIGHT IN REACH,CONTINUE TO MONITOR.
[2021-05-12 04:00] VITALS: BP 139/66
[2021-05-12 05:46] LABS: HEMATOCRIT 38.2 % (37.0-47.0); HEMOGLOBIN 11.4 g/dl (12.0-16.0); MEAN CELL VOLUME 87.6 fL CALC (80.0-100.0); MEAN CORPUSCULAR HGB 26.1 pG CALC (26.0-32.0); MEAN CORPUSCULAR HGB CONC 29.8 g/dL CAL (32.0-36.0); RED BLOOD COUNT 4.36 mill/uL (4.20-5.60); RED CELL DISTRI WIDTH 17.1 % (11.5-15.5)
[2021-05-12 05:54] LABS: ANION GAP 10 (6-22 (CALC)); BUN 3 mg/dL (8-23); BUN/CREATININE RATIO 5 (12-20 (CALC)); CARBON DIOXIDE 23 mmol/l (22-30); CHLORIDE 112 mmol/l (95-108); CREATININE 0.6 mg/dL (0.5-1.0); GFR > 60 ML/MIN (>=60 (CALC)); GFR FOR AFR.AMER. > 60 ML/MIN (>=60 (CALC)); MAGNESIUM 1.7 mg/dL (1.6-2.3); POTASSIUM 3.7 mmol/l (3.5-5.1); SODIUM 141 mmol/l (137-146)
--- NOTE | 2021-05-12 06:00 | NUR ---
PT RESTING IN BED WATCHING TV, NO SIGNS OF DISTRESS NOTED, RESP EVEN AND UNLABORED. PT VOICES NO NEEDS OR COMPLAINTS AT THIS TIME, GINGERALE PROVIDED. CALL LIGHT IN REACH,CONTINUE TO MONITOR.
[2021-05-12 08:30] VITALS: BP 143/62; BP 175/98
--- NOTE | 2021-05-12 08:30 | NUR ---
PT SITTING IN BED IN HIGH MERCADO'S POSITION. EVEN AND UNLABORED RESPIRATIONS UPON AUSCULTATION. ACTIVE BOWEL SOUNDS X4 QUADRANTS. TELEMETRY IN PLACE. BEAR CATHETER IN PLACE WITH CLEAR, YELLOW URINE. PT MEDICATION SENT TO PHARMACY; PILLS COUNTED WITH PT. SAFETY PRECAUTIONS IN PLACE. CALL LIGHT WITHIN REACH.
--- NOTE | 2021-05-12 10:20 | NUR ---
PT IN BED; BEAR REMOVED PER . ORDERS. CATHETER INTACT UPON REMOVAL WITH 800 CC OF CLEAR, YELLOW URINE, PT TOLERATED WELL. PT C/O DIARRHEA, SAMPLE COLLECTED PER DR'S ORDERS. CALL LIGHT WITHIN REACH.
[2021-05-12 11:00] VITALS: BP 175/98
[2021-05-12 13:56] LABS: C. DIFFICILE TOXIN A&B NEGATIVE (NEGATIVE)
--- NOTE | 2021-05-12 14:00 | NUR ---
PT SITTING IN BED. PT GOT HOME MEDS FROM PHARMACY. NO DISTRESS NOTED. PT STATES SHE IS READY TO GO HOME. IV REMOVED #20G ON LEFT WRIST; CATHETER INTACT UPON REMOVAL; PT TOLERATED WELL.
--- NOTE | 2021-05-12 14:49 | NUR ---
Discharge instructions given. Patient verbalizes understanding of same. Discharged in stable condition via Wheelchair to Home with staff. All belongings sent with pt.
== END 2021-05-12 14:29 | disposition home health service (06) | DRG 917 ==
LOC: ED 23:22 → ED-I 05-08 01:50 → ED 05-08 02:08 → MS2 05-08 02:09 → ICU 05-08 02:09 → MS2 05-09 16:58
PROVIDERS: Internal Medicine; Nurse Practitioner; ADMIT Hospitalist; ATTEND Hospitalist
PROC: 0T9B70Z Drainage of Bladder with Drainage Device, Via Natural or Artificial Opening (ICD-10-PCS; principal; 2021-05-08)
PROC: 5A1935Z Respiratory Ventilation, Less than 24 Consecutive Hours (ICD-10-PCS; 2021-05-08)
DX: T40.601A Poisoning by unspecified narcotics, accidental (unintentional), initial encounter (principal); J69.0 Pneumonitis due to inhalation of food and vomit; G92.8 Other toxic encephalopathy; J96.90 Respiratory failure, unspecified, unspecified whether with hypoxia or hypercapnia; F11.288 Opioid dependence with other opioid-induced disorder; F13.280 Sedative, hypnotic or anxiolytic dependence with sedative, hypnotic or anxiolytic-induced anxiety disorder; E87.2 Acidosis; T45.0X1A Poisoning by antiallergic and antiemetic drugs, accidental (unintentional), initial encounter; F11.24 Opioid dependence with opioid-induced mood disorder; F13.24 Sedative, hypnotic or anxiolytic dependence with sedative, hypnotic or anxiolytic-induced mood disorder; T42.4X1A Poisoning by benzodiazepines, accidental (unintentional), initial encounter; E87.6 Hypokalemia; F32.A Depression, unspecified; I11.0 Hypertensive heart disease with heart failure; I50.9 Heart failure, unspecified; I48.0 Paroxysmal atrial fibrillation; E03.9 Hypothyroidism, unspecified; M54.9 Dorsalgia, unspecified; G89.29 Other chronic pain; J44.9 Chronic obstructive pulmonary disease, unspecified; K21.9 Gastro-esophageal reflux disease without esophagitis; I25.10 Atherosclerotic heart disease of native coronary artery without angina pectoris; E66.01 Morbid (severe) obesity due to excess calories; Z68.33 Body mass index [BMI] 33.0-33.9, adult; Z20.822 Contact with and (suspected) exposure to COVID-19; Z87.11 Personal history of peptic ulcer disease; Z87.440 Personal history of urinary (tract) infections; Z98.84 Bariatric surgery status; Z91.51 Personal history of suicidal behavior; Z91.81 History of falling
CPT/HCPCS: J2060; J3475; S0164

== ENCOUNTER 2021-05-17 14:16 | Inpatient (IN) | payer MEDICARE, MEDICAID ==
[2021-05-17] VITALS (25 sets, daily range): BP systolic 87–134; BP diastolic 44–105
[~2021-05-17] VITALS: Ht 157.5 cm; Wt 90.0 kg
[~2021-05-17 14:16] MED LIST changes: +DITROPAN XL10 MG PO; +FEROSUL325 MG PO; +LIDOCAINE PATCH 55 % TOP; +MIDODRINE10 MG PO; +OMEPRAZOLE DR40 MG PO; +ZOLPIDEM10 M1 PO
[2021-05-17 15:07] LABS: HEMATOCRIT 36.6 % (37.0-47.0); HEMOGLOBIN 10.9 g/dl (12.0-16.0); MEAN CELL VOLUME 88.8 fL CALC (80.0-100.0); MEAN CORPUSCULAR HGB 26.5 pG CALC (26.0-32.0); MEAN CORPUSCULAR HGB CONC 29.8 g/dL CAL (32.0-36.0); NEUT# 2.18 thou/uL (2.00-7.15); RED BLOOD COUNT 4.12 mill/uL (4.20-5.60); RED CELL DISTRI WIDTH 17.4 % (11.5-15.5)
[2021-05-17 15:19] LABS: ALBUMIN 3.3 g/dL (3.2-5.0); ALKALINE PHOSPHATASE 66 u/l (38-126); BILIRUBIN, TOTAL 0.4 mg/dL (0.0-1.4); BUN 12 mg/dL (8-23); BUN/CREATININE RATIO 17 (12-20 (CALC)); CARBON DIOXIDE 26 mmol/l (22-30); CREATININE 0.7 mg/dL (0.5-1.0); GFR > 60 ML/MIN (>=60 (CALC)); GFR FOR AFR.AMER. > 60 ML/MIN (>=60 (CALC)); POTASSIUM 3.6 mmol/l (3.5-5.1); SGOT/AST 23 u/l (9-36); SODIUM 135 mmol/l (137-146); TOTAL PROTEIN 6.7 g/dL (6.3-8.2)
[2021-05-17 15:21] LABS: ANION GAP 15 (6-22 (CALC)); CHLORIDE 98 mmol/l (95-108)
[2021-05-17 17:26] LABS: URINE BILIRUBIN - DIPSTICK NEGATIVE (NEGATIVE); URINE BLOOD DIPSTICK NEGATIVE (NEGATIVE); URINE COLOR YELLOW; URINE GLUCOSE - DIPSTICK NEGATIVE (NEGATIVE); URINE KETONE NEGATIVE (NEGATIVE); URINE LEUK ESTERASE NEGATIVE (NEGATIVE); URINE PROTEIN - DIPSTICK NEGATIVE (NEG-TRACE); URINE SPECIFIC GRAVITY 1.025
[2021-05-17 17:30] LABS: URINE NITRITE - DIPSTICK NEGATIVE (Negative)
[2021-05-18] VITALS (7 sets, daily range): BP systolic 112–148; BP diastolic 66–81
[2021-05-18 06:05] LABS: HEMATOCRIT 31.5 % (37.0-47.0); HEMOGLOBIN 9.5 g/dl (12.0-16.0); MEAN CELL VOLUME 87.3 fL CALC (80.0-100.0); MEAN CORPUSCULAR HGB 26.3 pG CALC (26.0-32.0); MEAN CORPUSCULAR HGB CONC 30.2 g/dL CAL (32.0-36.0); RED BLOOD COUNT 3.61 mill/uL (4.20-5.60); RED CELL DISTRI WIDTH 17.6 % (11.5-15.5)
[2021-05-18 06:07] LABS: ANION GAP 11 (6-22 (CALC)); BUN 14 mg/dL (8-23); BUN/CREATININE RATIO 25 (12-20 (CALC)); CARBON DIOXIDE 28 mmol/l (22-30); CHLORIDE 102 mmol/l (95-108); CREATININE 0.6 mg/dL (0.5-1.0); GFR > 60 ML/MIN (>=60 (CALC)); GFR FOR AFR.AMER. > 60 ML/MIN (>=60 (CALC)); MAGNESIUM 1.6 mg/dL (1.6-2.3); POTASSIUM 4.2 mmol/l (3.5-5.1); SODIUM 137 mmol/l (137-146)
[2021-05-19 03:56] VITALS: BP 149/80
[2021-05-19 05:21] LABS: HEMATOCRIT 30.3 % (37.0-47.0); HEMOGLOBIN 9.1 g/dl (12.0-16.0); MEAN CELL VOLUME 87.8 fL CALC (80.0-100.0); MEAN CORPUSCULAR HGB 26.4 pG CALC (26.0-32.0); RED BLOOD COUNT 3.45 mill/uL (4.20-5.60); RED CELL DISTRI WIDTH 18.2 % (11.5-15.5)
[2021-05-19 05:58] LABS: ANION GAP 8 (6-22 (CALC)); BUN 14 mg/dL (8-23); BUN/CREATININE RATIO 24 (12-20 (CALC)); CARBON DIOXIDE 28 mmol/l (22-30); CHLORIDE 107 mmol/l (95-108); CREATININE 0.6 mg/dL (0.5-1.0); GFR > 60 ML/MIN (>=60 (CALC)); GFR FOR AFR.AMER. > 60 ML/MIN (>=60 (CALC)); POTASSIUM 3.4 mmol/l (3.5-5.1); SODIUM 140 mmol/l (137-146)
[2021-05-19 08:40] VITALS: BP 165/65
[2021-05-19 11:00] VITALS: BP 163/83
[2021-05-19 20:00] VITALS: BP 148/81
[2021-05-20] VITALS (11 sets, daily range): BP systolic 108–161; BP diastolic 68–91
[2021-05-20 05:32] LABS: HEMATOCRIT 33.1 % (37.0-47.0); MEAN CELL VOLUME 88.3 fL CALC (80.0-100.0); MEAN CORPUSCULAR HGB 26.7 pG CALC (26.0-32.0); MEAN CORPUSCULAR HGB CONC 30.2 g/dL CAL (32.0-36.0); RED BLOOD COUNT 3.75 mill/uL (4.20-5.60); RED CELL DISTRI WIDTH 17.7 % (11.5-15.5)
[2021-05-20 05:47] LABS: BUN 10 mg/dL (8-23); BUN/CREATININE RATIO 16 (12-20 (CALC)); CARBON DIOXIDE 29 mmol/l (22-30); CHLORIDE 107 mmol/l (95-108); CREATININE 0.6 mg/dL (0.5-1.0); GFR > 60 ML/MIN (>=60 (CALC)); GFR FOR AFR.AMER. > 60 ML/MIN (>=60 (CALC)); MAGNESIUM 1.8 mg/dL (1.6-2.3); SODIUM 140 mmol/l (137-146)
[2021-05-20 05:55] LABS: ANION GAP 9 (6-22 (CALC))
[2021-05-20 05:56] LABS: POTASSIUM 4.7 mmol/l (3.5-5.1)
[2021-05-21] VITALS: BP 160/86
[2021-05-21 05:05] VITALS: BP 154/69
[2021-05-21 05:38] LABS: HEMATOCRIT 32.9 % (37.0-47.0); HEMOGLOBIN 9.8 g/dl (12.0-16.0); MEAN CELL VOLUME 88.7 fL CALC (80.0-100.0); MEAN CORPUSCULAR HGB 26.4 pG CALC (26.0-32.0); MEAN CORPUSCULAR HGB CONC 29.8 g/dL CAL (32.0-36.0); RED BLOOD COUNT 3.71 mill/uL (4.20-5.60); RED CELL DISTRI WIDTH 17.4 % (11.5-15.5)
[2021-05-21 06:13] LABS: BUN 7 mg/dL (8-23); BUN/CREATININE RATIO 12 (12-20 (CALC)); CARBON DIOXIDE 31 mmol/l (22-30); CHLORIDE 107 mmol/l (95-108); CREATININE 0.6 mg/dL (0.5-1.0); GFR > 60 ML/MIN (>=60 (CALC)); GFR FOR AFR.AMER. > 60 ML/MIN (>=60 (CALC)); MAGNESIUM 1.8 mg/dL (1.6-2.3); SODIUM 142 mmol/l (137-146)
[2021-05-21 06:15] LABS: ANION GAP 8 (6-22 (CALC))
[2021-05-21 06:19] LABS: POTASSIUM 3.6 mmol/l (3.5-5.1)
[2021-05-21 08:08] VITALS: BP 152/81
[2021-05-21 10:30] VITALS: BP 153/94
[2021-05-21 15:37] VITALS: BP 136/69
[2021-05-21 19:31] VITALS: BP 164/81
[2021-05-22] VITALS: BP 119/75
[2021-05-22 04:00] VITALS: BP 152/65
[2021-05-22 05:57] LABS: HEMATOCRIT 30.5 % (37.0-47.0); HEMOGLOBIN 9.1 g/dl (12.0-16.0); MEAN CELL VOLUME 87.6 fL CALC (80.0-100.0); MEAN CORPUSCULAR HGB 26.1 pG CALC (26.0-32.0); MEAN CORPUSCULAR HGB CONC 29.8 g/dL CAL (32.0-36.0); RED BLOOD COUNT 3.48 mill/uL (4.20-5.60); RED CELL DISTRI WIDTH 17.3 % (11.5-15.5)
[2021-05-22 06:12] LABS: ANION GAP 8 (6-22 (CALC)); BUN 8 mg/dL (8-23); BUN/CREATININE RATIO 12 (12-20 (CALC)); CARBON DIOXIDE 32 mmol/l (22-30); CHLORIDE 104 mmol/l (95-108); CREATININE 0.6 mg/dL (0.5-1.0); GFR > 60 ML/MIN (>=60 (CALC)); GFR FOR AFR.AMER. > 60 ML/MIN (>=60 (CALC)); POTASSIUM 3.8 mmol/l (3.5-5.1); SODIUM 140 mmol/l (137-146)
[2021-05-22 07:47] VITALS: BP 154/52
[2021-05-22 10:15] VITALS: BP 155/85
[2021-05-22 14:57] VITALS: BP 149/94
[2021-05-22 19:00] VITALS: BP 163/83
[2021-05-23] VITALS: BP 106/68
[2021-05-23 04:00] VITALS: BP 148/71
[2021-05-23 07:53] VITALS: BP 95/60
[2021-05-23 10:53] VITALS: BP 132/82
[2021-05-23] MEDS ORDERED: OXYCODONE15 MG PO ×2 (13:03→13:15)
[2021-05-23] MEDS ORDERED: XANAX1 MG PO ×2 (13:03→13:15)
[2021-05-23] MEDS ORDERED: XTAMPZA ER18 MG PO ×2 (13:03→13:15)
[2021-05-23] MEDS ORDERED: LEVAQUIN750 M1 PO (13:04)
[2021-05-23] MEDS ORDERED: ZOLPIDEM10 M1 PO (13:15)
[2021-05-23] MEDS ORDERED: ZOLPIDEM10 MG PO (14:08)
== END 2021-05-23 14:42 | DRG 178 ==
LOC: ED 14:16 → ED-I 20:35 → MS2 20:36 → ED 20:36 → MS2 05-18 00:09
PROVIDERS: Family Medicine; Nurse Practitioner; ADMIT Hospitalist; ATTEND Hospitalist
PROC: 0T9B70Z Drainage of Bladder with Drainage Device, Via Natural or Artificial Opening (ICD-10-PCS; principal; 2021-05-17)
PROC: 02HV33Z Insertion of Infusion Device into Superior Vena Cava, Percutaneous Approach (ICD-10-PCS; 2021-05-17)
DX: J69.0 Pneumonitis due to inhalation of food and vomit (principal); I47.1 Supraventricular tachycardia; F11.20 Opioid dependence, uncomplicated; F13.20 Sedative, hypnotic or anxiolytic dependence, uncomplicated; J44.9 Chronic obstructive pulmonary disease, unspecified; I10 Essential (primary) hypertension; E03.9 Hypothyroidism, unspecified; R09.02 Hypoxemia; E66.01 Morbid (severe) obesity due to excess calories; I25.10 Atherosclerotic heart disease of native coronary artery without angina pectoris; I48.0 Paroxysmal atrial fibrillation; I95.9 Hypotension, unspecified; K21.9 Gastro-esophageal reflux disease without esophagitis; G47.30 Sleep apnea, unspecified; F32.A Depression, unspecified; F41.9 Anxiety disorder, unspecified; G62.9 Polyneuropathy, unspecified; G89.29 Other chronic pain; Z68.36 Body mass index [BMI] 36.0-36.9, adult; Z87.440 Personal history of urinary (tract) infections; Z98.84 Bariatric surgery status; Z87.11 Personal history of peptic ulcer disease; Z20.822 Contact with and (suspected) exposure to COVID-19
CPT/HCPCS: J0153; J2060; Q9967

== ENCOUNTER 2021-07-28 12:49 | Inpatient (IN) | payer MEDICARE, MEDICAID ==
[2021-07-28] VITALS (83 sets, daily range): BP systolic 54–184; BP diastolic 32–145
[~2021-07-28] VITALS: Ht 157.5 cm; Wt 88.0 kg
[~2021-07-28 12:49] MED LIST changes: +LEVAQUIN750 M1 PO
[2021-07-28 13:37] LABS: HEMATOCRIT 34.2 % (37.0-47.0); HEMOGLOBIN 10.4 g/dl (12.0-16.0); IMMATURE GRANULOCYTES 0.2 % (0.0-5.0); MEAN CELL VOLUME 86.8 fL CALC (80.0-100.0); MEAN CORPUSCULAR HGB 26.4 pG CALC (26.0-32.0); MEAN CORPUSCULAR HGB CONC 30.4 g/dL CAL (32.0-36.0); NEUT# 4.93 thou/uL (2.00-7.15); RED BLOOD COUNT 3.94 mill/uL (4.20-5.60); RED CELL DISTRI WIDTH 16.7 % (11.5-15.5)
[2021-07-28 14:01] LABS: ALBUMIN 2.9 g/dL (3.2-5.0); ALKALINE PHOSPHATASE 86 u/l (38-126); BUN 21 mg/dL (8-23); BUN/CREATININE RATIO 17 (12-20 (CALC)); CARBON DIOXIDE 26 mmol/l (22-30); CHLORIDE 98 mmol/l (95-108); CREATININE 1.2 mg/dL (0.5-1.0); GFR 44 ML/MIN (>=60 (CALC)); GFR FOR AFR.AMER. 54 ML/MIN (>=60 (CALC)); POTASSIUM 3.4 mmol/l (3.5-5.1); SGOT/AST 35 u/l (9-36); TOTAL PROTEIN 5.9 g/dL (6.3-8.2)
[2021-07-28 14:17] LABS: URINE BILIRUBIN - DIPSTICK NEGATIVE (NEGATIVE); URINE BLOOD DIPSTICK NEGATIVE (NEGATIVE); URINE COLOR YELLOW; URINE GLUCOSE - DIPSTICK NEGATIVE (NEGATIVE); URINE KETONE NEGATIVE (NEGATIVE); URINE LEUK ESTERASE NEGATIVE (NEGATIVE); URINE PH 5.5 (4.5-8.0); URINE PROTEIN - DIPSTICK NEGATIVE (NEG-TRACE); URINE UROBILINOGEN - DIPSTICK 0.2 E.U./dL (0.2)
[2021-07-28 14:20] LABS: URINE NITRITE - DIPSTICK NEGATIVE (Negative)
[2021-07-28 14:22] LABS: ANION GAP 10 (6-22 (CALC)); BILIRUBIN, TOTAL 0.6 mg/dL (0.0-1.4); SODIUM 131 mmol/l (137-146)
[2021-07-29] VITALS (54 sets, daily range): BP systolic 93–144; BP diastolic 56–89
[2021-07-29 05:05] LABS: HEMATOCRIT 35.2 % (37.0-47.0); HEMOGLOBIN 10.9 g/dl (12.0-16.0); MEAN CELL VOLUME 83.6 fL CALC (80.0-100.0); MEAN CORPUSCULAR HGB 25.9 pG CALC (26.0-32.0); RED BLOOD COUNT 4.21 mill/uL (4.20-5.60); RED CELL DISTRI WIDTH 16.7 % (11.5-15.5)
[2021-07-29 05:31] LABS: ANION GAP 11 (6-22 (CALC)); BUN 18 mg/dL (8-23); BUN/CREATININE RATIO 20 (12-20 (CALC)); CARBON DIOXIDE 24 mmol/l (22-30); CHLORIDE 104 mmol/l (95-108); CREATININE 0.9 mg/dL (0.5-1.0); GFR > 60 ML/MIN (>=60 (CALC)); GFR FOR AFR.AMER. > 60 ML/MIN (>=60 (CALC)); MAGNESIUM 1.4 mg/dL (1.6-2.3); POTASSIUM 3.5 mmol/l (3.5-5.1); SODIUM 135 mmol/l (137-146)
[2021-07-30] VITALS (10 sets, daily range): BP systolic 98–161; BP diastolic 57–82
[2021-07-30 05:20] LABS: HEMATOCRIT 31.1 % (37.0-47.0); HEMOGLOBIN 9.8 g/dl (12.0-16.0); MEAN CELL VOLUME 83.4 fL CALC (80.0-100.0); MEAN CORPUSCULAR HGB 26.3 pG CALC (26.0-32.0); MEAN CORPUSCULAR HGB CONC 31.5 g/dL CAL (32.0-36.0); RED BLOOD COUNT 3.73 mill/uL (4.20-5.60); RED CELL DISTRI WIDTH 17.3 % (11.5-15.5)
[2021-07-30 05:44] LABS: ANION GAP 7 (6-22 (CALC)); BUN 17 mg/dL (8-23); BUN/CREATININE RATIO 20 (12-20 (CALC)); CARBON DIOXIDE 24 mmol/l (22-30); CHLORIDE 109 mmol/l (95-108); CREATININE 0.9 mg/dL (0.5-1.0); GFR > 60 ML/MIN (>=60 (CALC)); GFR FOR AFR.AMER. > 60 ML/MIN (>=60 (CALC)); POTASSIUM 3.5 mmol/l (3.5-5.1); SODIUM 136 mmol/l (137-146)
[2021-07-30 05:53] LABS: MAGNESIUM 2.2 mg/dL (1.6-2.3)
[2021-07-30] MEDS ORDERED: ALPRAZOLAM1 MG PO (10:34)
[2021-07-30] MEDS ORDERED: PREGABALIN150 MG PO (10:41)
[2021-07-30] MEDS ORDERED: OXYCODONE15 MG PO (10:50)
[2021-07-31 00:29] VITALS: BP 140/78
[2021-07-31 04:45] VITALS: BP 144/70
[2021-07-31 05:35] LABS: HEMATOCRIT 29.4 % (37.0-47.0); HEMOGLOBIN 9.2 g/dl (12.0-16.0); IMMATURE GRANULOCYTES 0.6 % (0.0-5.0); MEAN CELL VOLUME 84.7 fL CALC (80.0-100.0); MEAN CORPUSCULAR HGB 26.5 pG CALC (26.0-32.0); MEAN CORPUSCULAR HGB CONC 31.3 g/dL CAL (32.0-36.0); NEUT# 6.87 thou/uL (2.00-7.15); RED BLOOD COUNT 3.47 mill/uL (4.20-5.60); RED CELL DISTRI WIDTH 17.4 % (11.5-15.5)
[2021-07-31 05:57] LABS: ANION GAP 6 (6-22 (CALC)); BUN 12 mg/dL (8-23); BUN/CREATININE RATIO 16 (12-20 (CALC)); CARBON DIOXIDE 24 mmol/l (22-30); CHLORIDE 114 mmol/l (95-108); CREATININE 0.8 mg/dL (0.5-1.0); GFR > 60 ML/MIN (>=60 (CALC)); GFR FOR AFR.AMER. > 60 ML/MIN (>=60 (CALC)); MAGNESIUM 1.9 mg/dL (1.6-2.3); POTASSIUM 3.3 mmol/l (3.5-5.1); SODIUM 141 mmol/l (137-146)
[2021-07-31 10:40] VITALS: BP 157/78
[2021-07-31] MEDS ORDERED: AMOX/K CLAV875 M1 PO (10:52)
== END 2021-07-31 15:30 | disposition home or self-care (01) | DRG 917 ==
LOC: ED 12:49 → ED-I 14:30 → ED 14:54 → ED-I 14:55 → ICU 14:55 → MS2 07-30 12:58
PROVIDERS: Family Medicine; Nurse Practitioner; ADMIT Hospitalist; ATTEND Internal Medicine
PROC: 0BH17EZ Insertion of Endotracheal Airway into Trachea, Via Natural or Artificial Opening (ICD-10-PCS; principal; 2021-07-28)
PROC: 5A1935Z Respiratory Ventilation, Less than 24 Consecutive Hours (ICD-10-PCS; 2021-07-28)
PROC: 06HY33Z Insertion of Infusion Device into Lower Vein, Percutaneous Approach (ICD-10-PCS; 2021-07-28)
PROC: 0T9B70Z Drainage of Bladder with Drainage Device, Via Natural or Artificial Opening (ICD-10-PCS; 2021-07-28)
DX: T40.601A Poisoning by unspecified narcotics, accidental (unintentional), initial encounter (principal); J96.01 Acute respiratory failure with hypoxia; J69.0 Pneumonitis due to inhalation of food and vomit; G93.41 Metabolic encephalopathy; J44.0 Chronic obstructive pulmonary disease with (acute) lower respiratory infection; F11.20 Opioid dependence, uncomplicated; N17.9 Acute kidney failure, unspecified; I10 Essential (primary) hypertension; I95.2 Hypotension due to drugs; E03.9 Hypothyroidism, unspecified; I25.10 Atherosclerotic heart disease of native coronary artery without angina pectoris; I48.91 Unspecified atrial fibrillation; G89.29 Other chronic pain; K21.9 Gastro-esophageal reflux disease without esophagitis; F32.A Depression, unspecified; F41.9 Anxiety disorder, unspecified; G47.30 Sleep apnea, unspecified; G62.9 Polyneuropathy, unspecified; Z87.11 Personal history of peptic ulcer disease; Z98.84 Bariatric surgery status; Z87.440 Personal history of urinary (tract) infections; Z79.01 Long term (current) use of anticoagulants; Z20.822 Contact with and (suspected) exposure to COVID-19
CPT/HCPCS: J3475; S0164

== ENCOUNTER 2022-05-30 15:09 | Inpatient (IN) | payer MEDICARE, MEDICAID ==
[2022-05-30] VITALS (91 sets, daily range): BP systolic 65–137; BP diastolic 33–79
[~2022-05-30] VITALS: Ht 157.5 cm; Wt 97.8 kg
[~2022-05-30 15:09] MED LIST changes: +PREGABALIN150 MG PO
--- NOTE | 2022-05-30 15:20 | NUR ---
PT ARRIVE VIA EMS. PT PLACED IN RM 11. PROVIDER AT BEDSIDE.
[2022-05-30 15:43] LABS: BASO% 0.1 % (0-3); HEMATOCRIT 30.6 % (37.0-47.0); HEMOGLOBIN 8.6 g/dl (12.0-16.0); IMMATURE GRANULOCYTES 0.2 % (0.0-5.0); LYMPH% 2.5 % (15-41); MEAN CELL VOLUME 82.3 fL CALC (80.0-100.0); MEAN CORPUSCULAR HGB 23.1 pG CALC (26.0-32.0); MEAN CORPUSCULAR HGB CONC 28.1 g/dL CAL (32.0-36.0); MONO% 6.8 % (2-13); NEUT# 15.82 thou/uL (2.00-7.15); NEUT% 90.4 % (42-76); RED BLOOD COUNT 3.72 mill/uL (4.20-5.60); RED CELL DISTRI WIDTH 18.2 % (11.5-15.5)
--- NOTE | 2022-05-30 16:00 | NUR ---
GUERDA MARTIN BEDSIDE WITH PATIENT MANAGING BLOOD PRESSURE AND MONITORING PATIENT CONDITION
[2022-05-30 16:10] LABS: ALBUMIN 2.4 g/dL (3.2-5.0); ALKALINE PHOSPHATASE 106 u/l (38-126); ANION GAP 7 (6-22 (CALC)); BILIRUBIN, TOTAL 0.4 mg/dL (0.02-1.3); BUN 23 mg/dL (8-23); BUN/CREATININE RATIO 28 (12-20 (CALC)); CARBON DIOXIDE 31 mmol/l (22-30); CHLORIDE 104 mmol/l (95-108); CREATININE 0.8 mg/dL (0.5-1.0); GFR FOR AFR.AMER. > 60 ML/MIN (>=60 (CALC)); GFR OTHER RACES > 60 ML/MIN (>=60 (CALC)); POTASSIUM 3.5 mmol/l (3.5-5.1); SGOT/AST 54 u/l (9-36); SODIUM 138 mmol/l (137-146); TOTAL PROTEIN 4.8 g/dL (6.3-8.2)
--- NOTE | 2022-05-30 16:20 | NUR ---
RN BEDSIDE WITH NURSE MANAGING BLOOD PRESSURE AND MONITORING PATIENT STATUS.
[2022-05-30 16:39] LABS: URINE BLOOD DIPSTICK NEGATIVE (NEGATIVE); URINE GLUCOSE - DIPSTICK NEGATIVE (NEGATIVE); URINE KETONE NEGATIVE (NEGATIVE); URINE LEUK ESTERASE NEGATIVE (NEGATIVE); URINE PH 5.5 (4.5-8.0); URINE PROTEIN - DIPSTICK TRACE mg/dL (NEG-TRACE); URINE SPECIFIC GRAVITY >=1.030
[2022-05-30 16:40] LABS: URINE BILIRUBIN - DIPSTICK SMALL (NEGATIVE); URINE COLOR DK. YELLOW; URINE NITRITE - DIPSTICK NEGATIVE (Negative)
--- NOTE | 2022-05-30 17:22 | NUR ---
Reassessment of patient completed. No distress noted.
--- NOTE | 2022-05-30 17:56 | NUR ---
RN IN ROOM MONITORING PATIENT'S CONDITION. COMMUNICATING WITH PROVIDER ANY CHANGES IN VS.
--- NOTE | 2022-05-30 18:10 | NUR ---
PT RESTING COMFORTABLY IN BED. RN AT BEDSIDE. VS STABLE AT THIS TIME. ALL NEEDS ADDRESSED. WILL CONTINUE TO MONITOR.
[2022-05-30] MEDS ORDERED: PREGABALIN300 MG PO (18:39)
[2022-05-30] MEDS ORDERED: TRAZODONE50 MG PO (18:42)
[2022-05-30] MEDS ORDERED: OXYBUTYNIN CHLOR5 M2 PO (18:43)
[2022-05-30] MEDS ORDERED: OXYCODONE15 MG PO (18:44)
[2022-05-30] MEDS ORDERED: ALPRAZOLAM1 MG PO (18:46)
[2022-05-30] MEDS ORDERED: ESCITALOPRAM OX10 MG PO (18:47)
[2022-05-30] MEDS ORDERED: FEROSUL325 MG PO (18:49)
[2022-05-30] MEDS ORDERED: NYSTATIN100000 UN2 TOP (18:49)
[2022-05-30] MEDS ORDERED: TIZANIDINE4 MG PO (18:51)
[2022-05-30] MEDS ORDERED: ELIQUIS5 MG PO (18:51)
[2022-05-30] MEDS ORDERED: MYRBETRIQ25 MG PO (18:52)
[2022-05-30] MEDS ORDERED: METOCLOPRAMIDE10 MG PO (18:53)
[2022-05-30] MEDS ORDERED: METOPROL TAR25 M1 PO (18:54)
[2022-05-30] MEDS ORDERED: ZOLPIDEM TARTRA10 MG PO (18:55)
--- NOTE | 2022-05-30 20:00 | NUR ---
Reassessment of patient completed. No distress noted.
--- NOTE | 2022-05-30 22:20 | NUR ---
PT ASKING FOR PAIN MEDS, PROVIDER IS AWARE. PT IS BEING ADMITTED AND IS AWAITING ROOM ASSIGNMENT
--- NOTE | 2022-05-30 23:00 | NUR ---
KRISTY CALLED UP TO ICU AND SPOKE TO NURSE CAITY. LYNDON TRANSPORTED PT UP TO FLOOR.
--- NOTE | 2022-05-30 23:15 | NUR ---
71 yr old white female admitted to icu3 per stretcher from er. transferred x3 to bed. bed weight obtained. o2 cont per nc. monitor car operator shows sinus tach. #20 rac & rij tlc in place. pure wick in place. history obtained per pt & er record. oriented to room. fall precautions initiated. pt has MANY requests (food, drink, pain pills).
[2022-05-31] VITALS (58 sets, daily range): BP systolic 90–132; BP diastolic 46–85
--- NOTE | 2022-05-31 02:00 | NUR ---
awake. no apparent distress. bus driver/monitor shows sinus rhythm.
--- NOTE | 2022-05-31 04:00 | NUR ---
awake. no distress. o2 cont. associate java developer shows sinus rhythm.
--- NOTE | 2022-05-31 05:41 | NUR ---
has beed awake all night. no distess. surveillance monitor shows sinus rhythm.
[2022-05-31 06:55] LABS: HEMATOCRIT 26.4 % (37.0-47.0); HEMOGLOBIN 7.4 g/dl (12.0-16.0); MEAN CELL VOLUME 82.8 fL CALC (80.0-100.0); MEAN CORPUSCULAR HGB 23.2 pG CALC (26.0-32.0); RED BLOOD COUNT 3.19 mill/uL (4.20-5.60); RED CELL DISTRI WIDTH 18.4 % (11.5-15.5)
[2022-05-31 07:12] LABS: ALKALINE PHOSPHATASE 108 u/l (38-126); ANION GAP 3 (6-22 (CALC)); CARBON DIOXIDE 28 mmol/l (22-30); CHLORIDE 111 mmol/l (95-108); MAGNESIUM 1.6 mg/dL (1.6-2.3); POTASSIUM 3.9 mmol/l (3.5-5.1); SGOT/AST 37 u/l (9-36); SODIUM 138 mmol/l (137-146); TOTAL PROTEIN 4.2 g/dL (6.3-8.2)
[2022-05-31 07:17] LABS: BUN 18 mg/dL (8-23); BUN/CREATININE RATIO 20 (12-20 (CALC)); CREATININE 0.9 mg/dL (0.5-1.0); GFR FOR AFR.AMER. > 60 ML/MIN (>=60 (CALC)); GFR OTHER RACES > 60 ML/MIN (>=60 (CALC))
--- NOTE | 2022-05-31 08:00 | NUR ---
Patient lying in bed. Patient c/o generalized, aching pain at an 8. Patient denies any other issues at this time. No s/s of distress at this time. Assessment complete. VSS. Will continue to monitor.
--- NOTE | 2022-05-31 10:00 | NUR ---
Patient lying in bed. Patient denies any pain at this time. VSS. Breathing even and unlabored. Will continue to monitor.
--- NOTE | 2022-05-31 12:00 | NUR ---
Patient sitting up in bed eating lunch. Patient denies any pain at this time. VSS. Breathing even and unlabored. Will continue to monitor.
--- NOTE | 2022-05-31 14:00 | NUR ---
Patient lying in bed. Denies pain. Breathing even and unlabored. No s/s of distress. Will continue to monitor.
--- NOTE | 2022-05-31 16:00 | NUR ---
Patient sitting up in bed. Patient denies any pain. No s/s of distress. VSS. Will continue to monitor.
--- NOTE | 2022-05-31 18:00 | NUR ---
Patient sitting up in bed. at bedside. Patient denies any pain at this time. No issues or concerns. No s/s of distress.
--- NOTE | 2022-05-31 20:00 | NUR ---
AWAKE. NO ACUTE DISTRESS. O2 CONT PER NC. AGENCY SALES DEVELOPMENT ASSOCIATE SHOWS SINUS RHYTHM. #20 RAC SALINE LOCK. RIJ TLC IN PLACE. NS INFUSING @ 100CCHR. PO FLUIDS TAKEN WELL. PURE WICK IN PLACE. URINE CLEAR YELLOW. FALL PRECAUTIONS CONT.
--- NOTE | 2022-05-31 21:20 | NUR ---
c/o pain. medicated as ordered.
--- NOTE | 2022-05-31 22:20 | NUR ---
report given to carly. moved per bed to [facility] 281.
--- NOTE | 2022-05-31 22:22 | NUR ---
PT ARRIVED TO [facility] ROOM 281. RESPIRATIONS EVEN AND UNLABORED ON ROOM AIR. PRN O2 AT BEDSIDE. TELE MONITORING IN PLACE. RIJ TRIPLE LUMEN INFUSING WITH IVF INFUSING PER ORDER. #20G RAC PATENT. PT STATES PAIN IS IMPROVED SINCE MEDICATED IN ICU. DENIES OF ADDITIONAL NEEDS. ALL SAFTEY PRECAUTIONS ARE IN PLACE WITH CALL LIGHT IN REACH
[2022-06-01] VITALS (8 sets, daily range): BP systolic 114–127; BP diastolic 55–78
--- NOTE | 2022-06-01 | NUR ---
PT HAD BM AT THIS TIME. KRISTINA CARE PROVIDED. MILKA VANEGAS. RESPIRATIONS EVEN AND UNLABORED ON ROOM AIR. RIJ TRIPLE LUMEN INFUSING WITH IVF PER ORDER. #20G RAC PATENT. PT ASKING FOR SLEEPING PILL. ALL SAFTEY PRECAUTIONS ARE IN PLACE WITH CALL LIGHT IN REACH.
--- NOTE | 2022-06-01 04:45 | NUR ---
PT SLEEPING IN SEMI FOWLERS POSITION. RESPIRATIONS EVEN AND UNLABORED ON ROOM AIR. PRN 2L NC AT BESIDE. RIJ TRIPLE LUMEN INFUSING WITH IVF PER ORDER. #20G RAC PATENT. PUREWHICK IN PLACE, DRAINING CLEAR YELLOW URINE. NO SIGNS OF ANY DISTRESS. ALL SAFETY PRECAUTIONS ARE IN PLACE WITH CALL LIGHT IN REACH.
[2022-06-01 04:53] LABS: HEMATOCRIT 25.4 % (37.0-47.0); HEMOGLOBIN 7.1 g/dl (12.0-16.0); MEAN CELL VOLUME 81.7 fL CALC (80.0-100.0); MEAN CORPUSCULAR HGB 22.8 pG CALC (26.0-32.0); RED BLOOD COUNT 3.11 mill/uL (4.20-5.60); RED CELL DISTRI WIDTH 18.1 % (11.5-15.5)
[2022-06-01 05:24] LABS: ALBUMIN 1.8 g/dL (3.2-5.0); ALKALINE PHOSPHATASE 85 u/l (38-126); ANION GAP 1 (6-22 (CALC)); BUN 15 mg/dL (8-23); BUN/CREATININE RATIO 22 (12-20 (CALC)); CARBON DIOXIDE 31 mmol/l (22-30); CHLORIDE 110 mmol/l (95-108); CREATININE 0.7 mg/dL (0.5-1.0); GFR FOR AFR.AMER. > 60 ML/MIN (>=60 (CALC)); GFR OTHER RACES > 60 ML/MIN (>=60 (CALC)); MAGNESIUM 1.6 mg/dL (1.6-2.3); POTASSIUM 3.6 mmol/l (3.5-5.1); SGOT/AST 24 u/l (9-36); SODIUM 139 mmol/l (137-146)
--- NOTE | 2022-06-01 08:00 | NUR ---
RN AT BEDSIDE FOR SHIFT ASSESSMENT. PT A/O X3 WITH VERBALIZED PAIN. PAIN MANAGEMENT PLAN OF CARE CREATED WITH PT FOCUSED INVOLVEMENT; PT VERBALIZES UNDERSTANDING AND AGREEMENT TO PLAN OF CARE. PT DENIES CHEST PAIN AND/OR SHORTNESS OF BREATH AT THIS TIME. CALL LIGHT AND PERSONAL BELONGINGS WITHIN REACH; ROOM SAFETY CHECK COMPLETED. WILL CONTINUE TO MONITOR.
--- NOTE | 2022-06-01 15:06 | NUR ---
Late entry from 0745 06/01/22 Preliminary blood cultrues called to . / vials growing gram (+) cocci. No new orders.
--- NOTE | 2022-06-01 15:41 | NUR ---
S: ANNEL CARIAS is a 71 F who presents with sepsis. She has a history of pneumonia. All medications in patient's chart were reviewed. O: VS: BP <121/67>, P<78>, RR<16>,T<97.8> W <97kg>, HT<62in>, Scr=<1>,CrCl= 52-68<ml/min> A: Blood culture <is pending preliminary shows gram (+) cocci in 1/4 Urine culture <is pending P: Patient is on Azithromycin 500mg iv and Rocephin 1 gram iv. Vancomycin ordered for pharmacy to dose. Start Vancomycin 1 gram IV Q12H. Vancomycin trough is drawn before the 4th dose on 06/03/22 @0030. Vancomycin goal trough is between <15-20 mcg/ml>. Pharmacy will follow and or advise on antibiotics use as needed.
--- NOTE | 2022-06-01 20:35 | NUR ---
PT RESTING IN BED, NO SIGNS OF DISTRESS NOTED, RESP EVEN AND UNLABORED. PT ALERT AND ORIENTED X3, PT ON 02 NC, PURE WICK IN PLACE. TRIPLE LUMEN CENTRAL LINE TO RIJ, DRESSING CDI. GOOD BLOOD RETURN. PT ALSO HAS A #20 RAC SL FLUSHED WELL. DISCUSSED POC, VERBALIZED UNDERSTANDING. PT MEDICATED PER MAR. ASSESSMENT COMPLETED, CALL LIGHT IN REACH,CONTINUE TO MONITOR.
[2022-06-02] VITALS: BP 117/60
--- NOTE | 2022-06-02 | NUR ---
PT RESTING IN BED, IV VANCO INITIATED. PT DENIES ANY NEEDS OR COMPLAINTS AT THIS TIME. CALL LIGHT IN REACH,CONTINUE TO MONITOR.
[2022-06-02 04:00] VITALS: BP 126/54
--- NOTE | 2022-06-02 04:00 | NUR ---
PT AWAKE WATCHING TV, NO SIGNS OF DISTRESS NOTED, RESP EVEN AND UNLABORED. CALL LIGHT IN REACH,CONTINUE TO MONITOR.
[2022-06-02 05:22] VITALS: BP 114/52
[2022-06-02 06:43] VITALS: BP 126/54
--- NOTE | 2022-06-02 08:00 | NUR ---
ASSUMED CARE OF PT. PT RESTING IN BED. DENIES ANY IMMEDIATE NEEDS. PYREK IN PLACE. ASSESSEMENT COMPLETE. IV INFUSING WITHOUT DIFFICULTY. PERSONAL BELONGINGS WITHIN REACH. BED IN LOWEST POSITION.
[2022-06-02 11:21] VITALS: BP 117/50
--- NOTE | 2022-06-02 12:00 | NUR ---
PT RESTING IN BED. OFFERED TO GET HER UP. STATES SHE CANNOT GET UP THE LAST TIME SHE TRIED HER KNEES GAVE OUT AND SHE FELL. EDUCATED ON NEED TO SHIFT HER WEIGHT TO ENSURE NO PRESSURE INJURY OCCURS. STATES UNDERSTANDING.
--- NOTE | 2022-06-02 16:00 | NUR ---
PT RESTING IN BED. DENIES ANY NEEDS AT THIS TIME. NO CHANGE IN ASSESSMENT. WILL CONTINUE TO MONITOR.
[2022-06-02 19:07] VITALS: BP 133/50
--- NOTE | 2022-06-02 20:45 | NUR ---
PT IN BED WATCHING TV. BREATHING EVEN AND UNLABORED. NO S/S OF DISTRESS NOTED. ASSESSMENT COMPLETED. PT REPORT PAIN TO 4 EXTREMITIES, PT NEDICATED PER MAR. CALL LIGHT IN REACH AND BED IN LOWEST POSITION.
--- NOTE | 2022-06-03 | NUR ---
PT IN BED RESTING WITH EYES CLOSED BREATHING EVEN AND UNLABORED, NO S/S OF DISTRESS NOTED. CALL LIGHT IN REACH AND BED IN LOWEST POSITION.
[2022-06-03 00:47] VITALS: BP 123/65
[2022-06-03 04:09] VITALS: BP 144/60
--- NOTE | 2022-06-03 04:15 | NUR ---
PT IN BED AWAKE BRAATHING EVEN AND UNLABORED. NO S/S OF DISTRESS NOTED, PERINEAL CARE PROVIDE IT. NO NEEDS OR CONCERN VOICED. CALL LIGHT IN REACH AND BED IN LOWEST POSITION.
[2022-06-03 05:15] LABS: BASO% 0.7 % (0-3); EOS% 4.7 % (0-8); HEMATOCRIT 28.2 % (37.0-47.0); HEMOGLOBIN 8.2 g/dl (12.0-16.0); IMMATURE GRANULOCYTES 0.7 % (0.0-5.0); LYMPH% 26.8 % (15-41); MEAN CELL VOLUME 80.3 fL CALC (80.0-100.0); MEAN CORPUSCULAR HGB 23.4 pG CALC (26.0-32.0); MEAN CORPUSCULAR HGB CONC 29.1 g/dL CAL (32.0-36.0); MONO% 11.5 % (2-13); NEUT# 3.09 thou/uL (2.00-7.15); NEUT% 55.6 % (42-76); RED BLOOD COUNT 3.51 mill/uL (4.20-5.60); RED CELL DISTRI WIDTH 18.2 % (11.5-15.5)
[2022-06-03 05:20] LABS: ANION GAP 2 (6-22 (CALC)); BUN 11 mg/dL (8-23); BUN/CREATININE RATIO 17 (12-20 (CALC)); CARBON DIOXIDE 30 mmol/l (22-30); CHLORIDE 110 mmol/l (95-108); CREATININE 0.6 mg/dL (0.5-1.0); GFR FOR AFR.AMER. > 60 ML/MIN (>=60 (CALC)); GFR OTHER RACES > 60 ML/MIN (>=60 (CALC)); MAGNESIUM 1.6 mg/dL (1.6-2.3); POTASSIUM 3.3 mmol/l (3.5-5.1); SODIUM 139 mmol/l (137-146)
[2022-06-03 06:02] VITALS: BP 116/58
--- NOTE | 2022-06-03 08:00 | NUR ---
0700 BEDSIDE REPORT RECEIVED FROM GLORIA PACHECO. PT EASILY AROUSED WHEN CALLED BY NAME. NO COMPLAINTS VOICED AT THIS TIME. RESP EVEN AND UNLABORED. PT UPDATED ON POC, VERBALIZES UNDERSTANDING AND DENIES QUESTIONS. ALL PERSONAL ITEMS WITHIN REACH, PT ADVISED TO CALL BEFORE TRYING TO GET OOB. SAFETY PRECAUTIONS IN PLACE.
[2022-06-03 08:55] VITALS: BP 116/58
[2022-06-03] MEDS ORDERED: VIBRAMYCIN100 M2 PO (10:40)
--- NOTE | 2022-06-03 15:46 | NUR ---
IV REMOVED WITH TIP INTACT, NO IV RELATED COMPLICATIONS NOTED. TELE REMOVED. SPOKE TO DR. DE ANDA AND MADE AWARE THAT THE PATIENT NEEDS TO F/U WITH [facility] TO GET OUTPT CBC AND STOOL FOR OB, PT VERBALIZES UNDERSTANDING. DC INSTRUCTIONS EXPLAINED TO PT, PT VERBALIZES UNDERSTANDING AND DENIES QUESTIONS. DOXYCYCLINE PO SENT TO PATIENT'S PREFERRED PHARMACY. MARILYN SET UP BY SHERRY CASE MANAGEMENT. PT DISCHARGED HOME WITH ALL PERSONAL BELONGINGS VIA AT 1522. RIGHT IJ REMOVED BY GUERDA SORIANO, NO S/S OF COMPLICATIONS NOTED AT INSERTION SITE X 30 MINUTES.
--- NOTE | 2022-06-03 16:12 | NUR ---
FINAL CULTURE RESULT CALLED TO DR TY, ORDER TO REGINA LIRA
== END 2022-06-03 15:22 | DRG 871 ==
LOC: ED 15:09 → ED-I 16:50 → ED 18:06 → ICU 18:07 → MS2 05-31 22:22
PROVIDERS: Family Medicine; Internal Medicine; Nurse Practitioner; ADMIT Internal Medicine; ATTEND Internal Medicine
PROC: 02HV33Z Insertion of Infusion Device into Superior Vena Cava, Percutaneous Approach (ICD-10-PCS; principal; 2022-05-30)
DX: A41.9 Sepsis, unspecified organism (principal); G93.41 Metabolic encephalopathy; J18.9 Pneumonia, unspecified organism; J96.01 Acute respiratory failure with hypoxia; J44.0 Chronic obstructive pulmonary disease with (acute) lower respiratory infection; F11.20 Opioid dependence, uncomplicated; R65.20 Severe sepsis without septic shock; I11.0 Hypertensive heart disease with heart failure; I50.9 Heart failure, unspecified; I95.9 Hypotension, unspecified; I48.91 Unspecified atrial fibrillation; D64.9 Anemia, unspecified; I25.10 Atherosclerotic heart disease of native coronary artery without angina pectoris; E03.9 Hypothyroidism, unspecified; G62.9 Polyneuropathy, unspecified; F41.9 Anxiety disorder, unspecified; F32.A Depression, unspecified; G89.29 Other chronic pain; E66.01 Morbid (severe) obesity due to excess calories; Z87.01 Personal history of pneumonia (recurrent); Z79.01 Long term (current) use of anticoagulants; Z87.440 Personal history of urinary (tract) infections; Z87.11 Personal history of peptic ulcer disease; Z98.84 Bariatric surgery status; Z99.81 Dependence on supplemental oxygen; Z20.822 Contact with and (suspected) exposure to COVID-19

== ENCOUNTER 2022-08-13 06:59 | Observation (INO) | payer MEDICARE, MEDICAID ==
[2022-08-13] VITALS (32 sets, daily range): BP systolic 68–131; BP diastolic 27–75
[~2022-08-13] VITALS: Ht 157.5 cm; Wt 92.6 kg
[~2022-08-13 06:59] MED LIST changes: +METOPROL TAR25 M1 PO; +MYRBETRIQ25 MG PO; +NYSTATIN100000 UN2 TOP; +OXYBUTYNIN CHLOR5 M2 PO; +VIBRAMYCIN100 M2 PO; +ZOLPIDEM TARTRA10 MG PO
[2022-08-13] MEDS ORDERED: LINZESS145 MCG PO (07:17)
[2022-08-13] MEDS ORDERED: OS-CAL 500500 M1 PO (07:19)
[2022-08-13] MEDS ORDERED: PREDNISONE10 MG PO (07:21)
[2022-08-13] MEDS ORDERED: PACERONE200 MG PO (07:22)
[2022-08-13] MEDS ORDERED: MIDODRINE10 MG PO (07:26)
[2022-08-13] MEDS ORDERED: FUROSEMIDE20 MG PO (07:27)
[2022-08-13] MEDS ORDERED: LYRICA200 MG PO (07:32)
[2022-08-13] MEDS ORDERED: NEURONTIN600 MG PO (07:33)
[2022-08-13 08:05] LABS: BASO% 0.2 % (0-3); EOS% 1.3 % (0-8); IMMATURE GRANULOCYTES 0.2 % (0.0-5.0); LYMPH% 10.5 % (15-41); MEAN CORPUSCULAR HGB 24.6 pG CALC (26.0-32.0); MEAN CORPUSCULAR HGB CONC 29.6 g/dL CAL (32.0-36.0); MONO% 7.2 % (2-13); NEUT# 7.26 thou/uL (2.00-7.15); NEUT% 80.6 % (42-76); RED BLOOD COUNT 4.6 mill/uL (4.20-5.60)
[2022-08-13 08:07] LABS: HEMATOCRIT 38.2 % (37.0-47.0); HEMOGLOBIN 11.3 g/dl (12.0-16.0)
[2022-08-13 08:21] LABS: ALKALINE PHOSPHATASE 106 u/l (38-126); ANION GAP 5 (6-22 (CALC)); BILIRUBIN, TOTAL 0.3 mg/dL (0.02-1.3); BUN 19 mg/dL (8-23); BUN/CREATININE RATIO 23 (12-20 (CALC)); CARBON DIOXIDE 36 mmol/l (22-30); CHLORIDE 101 mmol/l (95-108); CREATININE 0.8 mg/dL (0.5-1.0); GFR FOR AFR.AMER. > 60 ML/MIN (>=60 (CALC)); GFR OTHER RACES > 60 ML/MIN (>=60 (CALC)); POTASSIUM 3.6 mmol/l (3.5-5.1); SGOT/AST 24 u/l (9-36); SODIUM 138 mmol/l (137-146); TOTAL PROTEIN 6.1 g/dL (6.3-8.2)
[2022-08-13 08:22] LABS: ALBUMIN 3.2 g/dL (3.2-5.0)
[2022-08-13 13:17] LABS: URINE BILIRUBIN - DIPSTICK NEGATIVE (NEGATIVE); URINE BLOOD DIPSTICK TRACE-INTACT (NEGATIVE); URINE COLOR YELLOW; URINE GLUCOSE - DIPSTICK NEGATIVE (NEGATIVE); URINE KETONE NEGATIVE (NEGATIVE); URINE LEUK ESTERASE NEGATIVE (NEGATIVE); URINE PH 5.5 (4.5-8.0); URINE PROTEIN - DIPSTICK NEGATIVE (NEG-TRACE); URINE SPECIFIC GRAVITY 1.025; URINE UROBILINOGEN - DIPSTICK 0.2 E.U./dL (0.2)
[2022-08-13 13:25] LABS: URINE NITRITE - DIPSTICK NEGATIVE (Negative)
[2022-08-14 05:22] VITALS: BP 112/62
[2022-08-14 07:27] VITALS: BP 102/58
[2022-08-14 11:28] VITALS: BP 115/58
[2022-08-14] MEDS ORDERED: TAM75CAP PO (12:28)
== END 2022-08-14 14:09 ==
LOC: ED 06:59 → ED-I 15:00 → ED 15:12 → MS2 15:13
PROVIDERS: Family Medicine; ADMIT Internal Medicine; ATTEND Internal Medicine
DX: J10.1 Influenza due to other identified influenza virus with other respiratory manifestations (principal); J44.9 Chronic obstructive pulmonary disease, unspecified; I11.0 Hypertensive heart disease with heart failure; I50.32 Chronic diastolic (congestive) heart failure; I25.10 Atherosclerotic heart disease of native coronary artery without angina pectoris; I48.91 Unspecified atrial fibrillation; G47.30 Sleep apnea, unspecified; K21.9 Gastro-esophageal reflux disease without esophagitis; E66.01 Morbid (severe) obesity due to excess calories; E03.9 Hypothyroidism, unspecified; G89.4 Chronic pain syndrome; F32.A Depression, unspecified; F41.9 Anxiety disorder, unspecified; G62.9 Polyneuropathy, unspecified; Z91.81 History of falling; Z87.11 Personal history of peptic ulcer disease; Z99.81 Dependence on supplemental oxygen; Z87.440 Personal history of urinary (tract) infections; Z98.84 Bariatric surgery status; Z20.822 Contact with and (suspected) exposure to COVID-19; Z79.891 Long term (current) use of opiate analgesic

== ENCOUNTER 2022-09-09 07:50 | Observation (INO) | payer MEDICARE, MEDICAID ==
[~2022-09-09] VITALS: Ht 157.5 cm; Wt 93.4 kg
[2022-09-09] VITALS (69 sets, daily range): BP systolic 74–120; BP diastolic 33–82
[~2022-09-09 07:50] MED LIST changes: +FUROSEMIDE20 MG PO; +LINZESS145 MCG PO; +NEURONTIN600 MG PO; +OS-CAL 500500 M1 PO; +PACERONE200 MG PO; +PREDNISONE10 MG PO
[2022-09-09 08:33] LABS: BASO% 0.2 % (0-3); EOS% 0.6 % (0-8); HEMOGLOBIN 10.5 g/dl (12.0-16.0); IMMATURE GRANULOCYTES 0.3 % (0.0-5.0); LYMPH% 7.1 % (15-41); MEAN CELL VOLUME 82.4 fL CALC (80.0-100.0); MEAN CORPUSCULAR HGB CONC 29.2 g/dL CAL (32.0-36.0); MONO% 6.1 % (2-13); NEUT# 14.86 thou/uL (2.00-7.15); NEUT% 85.7 % (42-76); RED BLOOD COUNT 4.37 mill/uL (4.20-5.60); RED CELL DISTRI WIDTH 15.9 % (11.5-15.5)
[2022-09-09 08:45] LABS: URINE BILIRUBIN - DIPSTICK NEGATIVE (NEGATIVE); URINE BLOOD DIPSTICK NEGATIVE (NEGATIVE); URINE COLOR YELLOW; URINE GLUCOSE - DIPSTICK NEGATIVE (NEGATIVE); URINE KETONE NEGATIVE (NEGATIVE); URINE LEUK ESTERASE NEGATIVE (NEGATIVE); URINE PH 5.5 (4.5-8.0); URINE PROTEIN - DIPSTICK TRACE mg/dL (NEG-TRACE); URINE SPECIFIC GRAVITY >=1.030
[2022-09-09 08:46] LABS: URINE NITRITE - DIPSTICK NEGATIVE (Negative)
[2022-09-09 08:48] LABS: ALBUMIN 3.3 g/dL (3.2-5.0); ALKALINE PHOSPHATASE 112 u/l (38-126); ANION GAP 9 (6-22 (CALC)); BILIRUBIN, TOTAL 0.4 mg/dL (0.02-1.3); BUN 27 mg/dL (8-23); BUN/CREATININE RATIO 23 (12-20 (CALC)); CARBON DIOXIDE 30 mmol/l (22-30); CHLORIDE 104 mmol/l (95-108); CREATININE 1.2 mg/dL (0.5-1.0); GFR FOR AFR.AMER. 53 ML/MIN (>=60 (CALC)); GFR OTHER RACES 44 ML/MIN (>=60 (CALC)); POTASSIUM 3.8 mmol/l (3.5-5.1); SGOT/AST 26 u/l (9-36); SODIUM 139 mmol/l (137-146); TOTAL PROTEIN 6.4 g/dL (6.3-8.2)
[2022-09-10 04:30] VITALS: BP 99/43
[2022-09-10 05:25] LABS: BASO% 0.2 % (0-3); EOS% 1.6 % (0-8); HEMATOCRIT 35.2 % (37.0-47.0); HEMOGLOBIN 10.1 g/dl (12.0-16.0); IMMATURE GRANULOCYTES 0.2 % (0.0-5.0); LYMPH% 8.5 % (15-41); MEAN CORPUSCULAR HGB 23.8 pG CALC (26.0-32.0); MEAN CORPUSCULAR HGB CONC 28.7 g/dL CAL (32.0-36.0); MONO% 4.9 % (2-13); NEUT# 8.72 thou/uL (2.00-7.15); NEUT% 84.6 % (42-76); RED BLOOD COUNT 4.24 mill/uL (4.20-5.60); RED CELL DISTRI WIDTH 16.2 % (11.5-15.5)
[2022-09-10 05:42] LABS: ALBUMIN 2.9 g/dL (3.2-5.0); ALKALINE PHOSPHATASE 109 u/l (38-126); ANION GAP 5 (6-22 (CALC)); BUN 19 mg/dL (8-23); BUN/CREATININE RATIO 21 (12-20 (CALC)); CARBON DIOXIDE 28 mmol/l (22-30); CHLORIDE 111 mmol/l (95-108); CREATININE 0.9 mg/dL (0.5-1.0); GFR FOR AFR.AMER. > 60 ML/MIN (>=60 (CALC)); GFR OTHER RACES > 60 ML/MIN (>=60 (CALC)); MAGNESIUM 1.7 mg/dL (1.6-2.3); POTASSIUM 3.8 mmol/l (3.5-5.1); SGOT/AST 21 u/l (9-36); SODIUM 140 mmol/l (137-146)
[2022-09-10 05:47] LABS: BILIRUBIN, TOTAL 0.2 mg/dL (0.02-1.3)
[2022-09-10 08:10] VITALS: BP 106/53
[2022-09-10] MEDS ORDERED: VIBRAMYCIN100 M2 PO (09:54)
[2022-09-10 10:48] VITALS: BP 124/65
== END 2022-09-10 12:44 ==
LOC: ED 07:50 → ED-I 08:20 → ED 08:20 → ED-I 10:30 → ED 11:55 → MS2 11:56
PROVIDERS: Family Medicine; Nurse Practitioner Family; ADMIT Internal Medicine; ATTEND Internal Medicine
DX: J10.1 Influenza due to other identified influenza virus with other respiratory manifestations (principal); J96.10 Chronic respiratory failure, unspecified whether with hypoxia or hypercapnia; I95.9 Hypotension, unspecified; S00.93XA Contusion of unspecified part of head, initial encounter; I50.32 Chronic diastolic (congestive) heart failure; I48.91 Unspecified atrial fibrillation; I25.10 Atherosclerotic heart disease of native coronary artery without angina pectoris; J44.9 Chronic obstructive pulmonary disease, unspecified; G89.4 Chronic pain syndrome; E03.9 Hypothyroidism, unspecified; E66.01 Morbid (severe) obesity due to excess calories; G47.30 Sleep apnea, unspecified; F41.9 Anxiety disorder, unspecified; F32.A Depression, unspecified; K21.9 Gastro-esophageal reflux disease without esophagitis; W06.XXXA Fall from bed, initial encounter; Y92.003 Bedroom of unspecified non-institutional (private) residence as the place of occurrence of the external cause; Z79.01 Long term (current) use of anticoagulants; Z99.81 Dependence on supplemental oxygen; Z87.11 Personal history of peptic ulcer disease; Z98.84 Bariatric surgery status; Z79.891 Long term (current) use of opiate analgesic

== ENCOUNTER 2022-10-07 21:49 | Inpatient (IN) | payer MEDICARE, MEDICAID ==
[~2022-10-07] VITALS: Ht 157.5 cm; Wt 91.6 kg
[2022-10-07 22:17] VITALS: BP 150/135
[2022-10-07 22:35] LABS: BASO% 0.3 % (0-3); IMMATURE GRANULOCYTES 0.3 % (0.0-5.0); LYMPH% 5.2 % (15-41); MEAN CELL VOLUME 82.7 fL CALC (80.0-100.0); MEAN CORPUSCULAR HGB 24.2 pG CALC (26.0-32.0); MEAN CORPUSCULAR HGB CONC 29.2 g/dL CAL (32.0-36.0); MONO% 6.8 % (2-13); NEUT# 18.13 thou/uL (2.00-7.15); NEUT% 87.4 % (42-76); RED BLOOD COUNT 5.13 mill/uL (4.20-5.60); RED CELL DISTRI WIDTH 19.3 % (11.5-15.5)
[2022-10-07 22:38] LABS: HEMATOCRIT 42.4 % (37.0-47.0); HEMOGLOBIN 12.4 g/dl (12.0-16.0)
[2022-10-07 22:52] VITALS: BP 90/61
[2022-10-07 23:30] VITALS: BP 71/54
[2022-10-07 23:31] VITALS: BP 85/43
[2022-10-07 23:33] VITALS: BP 81/48
[2022-10-07 23:45] VITALS: BP 132/114
[2022-10-08] VITALS (155 sets, daily range): BP systolic 55–139; BP diastolic 31–118
[2022-10-08 00:06] LABS: ALKALINE PHOSPHATASE 74 u/l (38-126); BUN 23 mg/dL (8-23); BUN/CREATININE RATIO 16 (12-20 (CALC)); CHLORIDE 104 mmol/l (95-108); CREATININE 1.4 mg/dL (0.5-1.0); GFR FOR AFR.AMER. 45 ML/MIN (>=60 (CALC)); GFR OTHER RACES 37 ML/MIN (>=60 (CALC)); POTASSIUM 3.5 mmol/l (3.5-5.1); SODIUM 137 mmol/l (137-146); TOTAL PROTEIN 6.3 g/dL (6.3-8.2)
[2022-10-08 00:08] LABS: ANION GAP 15 (6-22 (CALC)); BILIRUBIN, TOTAL 0.7 mg/dL (0.02-1.3); CARBON DIOXIDE 22 mmol/l (22-30); SGOT/AST 37 u/l (9-36)
[2022-10-08 02:19] LABS: URINE BILIRUBIN - DIPSTICK NEGATIVE (NEGATIVE); URINE BLOOD DIPSTICK NEGATIVE (NEGATIVE); URINE COLOR YELLOW; URINE GLUCOSE - DIPSTICK NEGATIVE (NEGATIVE); URINE KETONE NEGATIVE (NEGATIVE); URINE LEUK ESTERASE NEGATIVE (NEGATIVE); URINE PH 5.5 (4.5-8.0); URINE PROTEIN - DIPSTICK TRACE mg/dL (NEG-TRACE); URINE SPECIFIC GRAVITY 1.015; URINE UROBILINOGEN - DIPSTICK 0.2 E.U./dL (0.2)
[2022-10-08 02:21] LABS: URINE NITRITE - DIPSTICK NEGATIVE (Negative)
[2022-10-08 09:06] LABS: BASO% 0.1 % (0-3); HEMATOCRIT 37.5 % (37.0-47.0); IMMATURE GRANULOCYTES 0.5 % (0.0-5.0); MEAN CELL VOLUME 80.8 fL CALC (80.0-100.0); MEAN CORPUSCULAR HGB 23.7 pG CALC (26.0-32.0); MEAN CORPUSCULAR HGB CONC 29.3 g/dL CAL (32.0-36.0); MONO% 6.8 % (2-13); NEUT# 23.22 thou/uL (2.00-7.15); NEUT% 88.6 % (42-76); RED BLOOD COUNT 4.64 mill/uL (4.20-5.60); RED CELL DISTRI WIDTH 18.6 % (11.5-15.5)
[2022-10-08 09:36] LABS: ANION GAP 11 (6-22 (CALC)); BUN 23 mg/dL (8-23); BUN/CREATININE RATIO 24 (12-20 (CALC)); CARBON DIOXIDE 25 mmol/l (22-30); CHLORIDE 109 mmol/l (95-108); GFR FOR AFR.AMER. > 60 ML/MIN (>=60 (CALC)); GFR OTHER RACES 55 ML/MIN (>=60 (CALC)); MAGNESIUM 1.3 mg/dL (1.6-2.3); POTASSIUM 3.8 mmol/l (3.5-5.1); SODIUM 141 mmol/l (137-146)
[2022-10-08] MEDS ORDERED: OMEPRAZOLE DR40 MG PO (13:16)
[2022-10-08] MEDS ORDERED: REGLAN10 MG PO (13:19)
[2022-10-08] MEDS ORDERED: LEXAPRO20 MG PO (13:20)
[2022-10-08] MEDS ORDERED: LOPRESSOR25 MG PO (13:24)
[2022-10-08] MEDS ORDERED: TRAZODONE100 MG PO (13:24)
[2022-10-08] MEDS ORDERED: ZOLPIDEM10 MG PO (13:25)
[2022-10-08] MEDS ORDERED: ELIQUIS5 MG PO (13:25)
[2022-10-08] MEDS ORDERED: ROXICODONE15 M1 PO (13:26)
[2022-10-08] MEDS ORDERED: XTAMPZA ER18 MG PO (13:28)
[2022-10-08] MEDS ORDERED: LEVOTHYROXIN112 MC1 PO (13:29)
[2022-10-08] MEDS ORDERED: XANAX1 MG PO (13:31)
[2022-10-08] MEDS ORDERED: CYCLOBENZAPRIN7.5 M1 PO (13:31)
[2022-10-08] MEDS ORDERED: LYRICA300 MG PO (13:32)
[2022-10-08] MEDS ORDERED: LIDOCAINE PATCH 55 % EX (13:33)
[2022-10-08] MEDS ORDERED: OXYBUTYNIN CHLO10 MG PO (13:34)
[2022-10-09] VITALS (98 sets, daily range): BP systolic 79–127; BP diastolic 41–94
[2022-10-09 05:35] LABS: HEMOGLOBIN 9.3 g/dl (12.0-16.0); MEAN CELL VOLUME 81.2 fL CALC (80.0-100.0); MEAN CORPUSCULAR HGB 24.3 pG CALC (26.0-32.0); RED BLOOD COUNT 3.82 mill/uL (4.20-5.60); RED CELL DISTRI WIDTH 18.6 % (11.5-15.5)
[2022-10-09 05:41] LABS: ALKALINE PHOSPHATASE 93 u/l (38-126); ANION GAP 4 (6-22 (CALC)); BILIRUBIN, TOTAL 0.5 mg/dL (0.02-1.3); BUN 21 mg/dL (8-23); BUN/CREATININE RATIO 25 (12-20 (CALC)); CARBON DIOXIDE 30 mmol/l (22-30); CHLORIDE 109 mmol/l (95-108); CREATININE 0.8 mg/dL (0.5-1.0); GFR FOR AFR.AMER. > 60 ML/MIN (>=60 (CALC)); GFR OTHER RACES > 60 ML/MIN (>=60 (CALC)); MAGNESIUM 1.4 mg/dL (1.6-2.3); POTASSIUM 3.2 mmol/l (3.5-5.1); SGOT/AST 19 u/l (9-36); SODIUM 139 mmol/l (137-146)
[2022-10-09 05:45] LABS: TOTAL PROTEIN 4.5 g/dL (6.3-8.2)
[2022-10-10] VITALS (18 sets, daily range): BP systolic 86–124; BP diastolic 49–74
[2022-10-10 05:45] LABS: HEMATOCRIT 29.9 % (37.0-47.0); HEMOGLOBIN 8.9 g/dl (12.0-16.0); MEAN CELL VOLUME 80.8 fL CALC (80.0-100.0); MEAN CORPUSCULAR HGB 24.1 pG CALC (26.0-32.0); MEAN CORPUSCULAR HGB CONC 29.8 g/dL CAL (32.0-36.0); RED BLOOD COUNT 3.7 mill/uL (4.20-5.60); RED CELL DISTRI WIDTH 18.8 % (11.5-15.5)
[2022-10-10 05:57] LABS: ALKALINE PHOSPHATASE 87 u/l (38-126); ANION GAP 5 (6-22 (CALC)); BILIRUBIN, TOTAL 0.5 mg/dL (0.02-1.3); BUN 17 mg/dL (8-23); BUN/CREATININE RATIO 25 (12-20 (CALC)); CARBON DIOXIDE 30 mmol/l (22-30); CHLORIDE 108 mmol/l (95-108); CREATININE 0.7 mg/dL (0.5-1.0); GFR FOR AFR.AMER. > 60 ML/MIN (>=60 (CALC)); GFR OTHER RACES > 60 ML/MIN (>=60 (CALC)); MAGNESIUM 1.7 mg/dL (1.6-2.3); POTASSIUM 3.3 mmol/l (3.5-5.1); SGOT/AST 15 u/l (9-36); SODIUM 141 mmol/l (137-146); TOTAL PROTEIN 4.5 g/dL (6.3-8.2)
[2022-10-11 03:33] VITALS: BP 132/70
[2022-10-11 04:00] VITALS: BP 132/70
[2022-10-11 05:30] LABS: HEMATOCRIT 28.3 % (37.0-47.0); HEMOGLOBIN 8.5 g/dl (12.0-16.0); MEAN CELL VOLUME 80.9 fL CALC (80.0-100.0); MEAN CORPUSCULAR HGB 24.3 pG CALC (26.0-32.0); RED BLOOD COUNT 3.5 mill/uL (4.20-5.60); RED CELL DISTRI WIDTH 18.5 % (11.5-15.5)
[2022-10-11 05:55] LABS: ALBUMIN 2.2 g/dL (3.2-5.0); ALKALINE PHOSPHATASE 81 u/l (38-126); ANION GAP 3 (6-22 (CALC)); BILIRUBIN, TOTAL 0.5 mg/dL (0.02-1.3); BUN 13 mg/dL (8-23); BUN/CREATININE RATIO 18 (12-20 (CALC)); CARBON DIOXIDE 32 mmol/l (22-30); CHLORIDE 104 mmol/l (95-108); CREATININE 0.7 mg/dL (0.5-1.0); GFR FOR AFR.AMER. > 60 ML/MIN (>=60 (CALC)); GFR OTHER RACES > 60 ML/MIN (>=60 (CALC)); MAGNESIUM 1.5 mg/dL (1.6-2.3); POTASSIUM 3.6 mmol/l (3.5-5.1); SGOT/AST 17 u/l (9-36); SODIUM 135 mmol/l (137-146); TOTAL PROTEIN 5.1 g/dL (6.3-8.2)
[2022-10-11 06:15] VITALS: BP 105/63
[2022-10-11] MEDS ORDERED: AMOX/K CLAV875 M1 PO (08:56)
[2022-10-11] MEDS ORDERED: MIDODRINE5 MG PO (08:56)
[2022-10-11 10:33] VITALS: BP 109/61
== END 2022-10-11 12:29 | DRG 871 ==
LOC: ED 21:49 → ED-I 10-08 01:15 → ED 10-08 01:39 → ICU 10-08 01:40 → MS2 10-10 12:39
PROVIDERS: Emergency Medicine; ADMIT Internal Medicine; ATTEND Internal Medicine
PROC: 02HV33Z Insertion of Infusion Device into Superior Vena Cava, Percutaneous Approach (ICD-10-PCS; principal; 2022-10-08)
PROC: 0T9B70Z Drainage of Bladder with Drainage Device, Via Natural or Artificial Opening (ICD-10-PCS; 2022-10-08)
PROC: 3E043XZ Introduction of Vasopressor into Central Vein, Percutaneous Approach (ICD-10-PCS; 2022-10-08)
DX: A41.9 Sepsis, unspecified organism (principal); G93.41 Metabolic encephalopathy; J18.9 Pneumonia, unspecified organism; R65.21 Severe sepsis with septic shock; J96.21 Acute and chronic respiratory failure with hypoxia; J44.0 Chronic obstructive pulmonary disease with (acute) lower respiratory infection; I50.32 Chronic diastolic (congestive) heart failure; I11.0 Hypertensive heart disease with heart failure; I95.9 Hypotension, unspecified; I25.10 Atherosclerotic heart disease of native coronary artery without angina pectoris; E03.9 Hypothyroidism, unspecified; I48.91 Unspecified atrial fibrillation; M19.90 Unspecified osteoarthritis, unspecified site; F32.A Depression, unspecified; F41.9 Anxiety disorder, unspecified; E66.01 Morbid (severe) obesity due to excess calories; D64.9 Anemia, unspecified; R19.5 Other fecal abnormalities; K21.9 Gastro-esophageal reflux disease without esophagitis; G89.29 Other chronic pain; Z98.84 Bariatric surgery status; Z87.440 Personal history of urinary (tract) infections; Z79.891 Long term (current) use of opiate analgesic; Z79.01 Long term (current) use of anticoagulants; Z99.81 Dependence on supplemental oxygen; Z87.11 Personal history of peptic ulcer disease; Z91.81 History of falling; Z20.822 Contact with and (suspected) exposure to COVID-19
CPT/HCPCS: J3475

== ENCOUNTER 2022-10-14 09:11 | Emergency (ER) | payer MEDICARE, MEDICAID ==
[2022-10-14] VITALS (14 sets, daily range): BP systolic 67–154; BP diastolic 36–129
[~2022-10-14] VITALS: Ht 157.5 cm; Wt 81.6 kg
[~2022-10-14 09:11] MED LIST changes: +CYCLOBENZAPRIN7.5 M1 PO; +LIDOCAINE PATCH 55 % EX; +LOPRESSOR25 MG PO; +MIDODRINE5 MG PO; +REGLAN10 MG PO; +ROXICODONE15 M1 PO
[2022-10-14] MEDS ORDERED: CALCITONIN200 UNIT/1 (13:47)
== END 2022-10-14 15:06 | disposition home or self-care (01) ==
LOC: ED 09:11
DX: S32.040D Wedge compression fracture of fourth lumbar vertebra, subsequent encounter for fracture with routine healing (principal); I11.0 Hypertensive heart disease with heart failure; I50.9 Heart failure, unspecified; J44.9 Chronic obstructive pulmonary disease, unspecified; I25.10 Atherosclerotic heart disease of native coronary artery without angina pectoris; E03.9 Hypothyroidism, unspecified; E66.01 Morbid (severe) obesity due to excess calories; K21.9 Gastro-esophageal reflux disease without esophagitis; F41.9 Anxiety disorder, unspecified; F32.A Depression, unspecified; I48.91 Unspecified atrial fibrillation; G62.9 Polyneuropathy, unspecified; X58.XXXD Exposure to other specified factors, subsequent encounter; Z91.81 History of falling; Z98.84 Bariatric surgery status; Z87.11 Personal history of peptic ulcer disease; Z99.81 Dependence on supplemental oxygen